=== PATIENT | female | born 1995 | race African-American/Black ===

== ENCOUNTER 2017-05-24 20:17 | Emergency (ER) | payer SELFPAY ==
[2017-05-24 20:24] VITALS: BP 118/68; PULSE 100; TEMP 98.2; BMI 31.6
[2017-05-24] MEDS ORDERED: NAPROXEN 500 MG TABLET (FP) PO ONE (21:11)
--- NOTE | 2017-05-24 21:15 | PDOC ---
History of Present Illness - General Chief Complaint: Ear Problem Stated Complaint: EAR PROBLEM Time Seen by Provider: 05/24/17 20:57 History Source: Patient Exam Limitations: No Limitations - History of Present Illness Initial Comments: 05/24/17 21:11 22 yr female with c/o photophobia and left sided headache today that has improved "slightly" after taking a nap and tylenol. pt called out from work and needs a work note. neg nvd neg fever no dental pain or history of migraines. Severity: mild Past History - Past Medical History Allergies/Adverse Reactions: Allergies Allergy/AdvReac Type Severity Reaction Status Date / Time No Known Allergies Allergy Verified 05/24/17 20:21 Home Medications: Ambulatory Orders Naproxen [Naprosyn -] 500 mg PO BID PRN #14 tablet 05/24/17 Asthma: Yes Cardiac Disorders: Yes (PERICARDITIS.) - Immunization History Immunization Up to Date: No - Suicide/Smoking/Psychosocial Hx Smoking Status: No Smoking History: Never smoked Have you smoked in the past 12 months: Yes Number of Cigarettes Smoked Daily: 0 Hx Alcohol Use: Yes (vodka) Drug/Substance Use Hx: Yes (marijuana) Substance Use Type: Alcohol, Marijuana Review of Systems - Review of Systems Able to Perform ROS?: Yes Is the patient limited Kiswahili proficient: No Constitutional: No: Symptoms Reported HEENTM: Yes: See HPI Respiratory: No: Symptoms reported Cardiac (ROS): No: Symptoms Reported ABD/GI: No: Symptoms Reported *Physical Exam - Vital Signs Last Vital Signs Temp Pulse Resp BP Pulse Ox 98.2 F 100 H 18 118/68 100 05/24/17 20:22 05/24/17 20:22 05/24/17 20:22 05/24/17 20:22 05/24/17 20:22 - Physical Exam General Appearance: Yes: Nourished, Appropriately Dressed HEENT: positive: EOMI, BREN[place], Pharynx Normal Neck: positive: Supple. negative: Tender Respiratory/Chest: positive: Lungs Clear, Normal Breath Sounds Cardiovascular: positive: Regular Rhythm, Regular Rate Gastrointestinal/Abdominal: positive: Normal Bowel Sounds, Soft Extremity: positive: Normal Inspection, Normal Range of Motion Integumentary: positive: Normal Color, Dry, Warm Neurologic: positive: Fully Oriented, Alert, Normal Mood/Affect, Normal Response , Motor Strength 5/5 Medical Decision Making - Medical Decision Making 05/24/17 21:12 cc: left ear ache and headache today improved on arrival now 10/22 no fever no diff eating or drinking no neck pain will give naprosyn *DC/Admit/Observation/Transfer Diagnosis at time of Disposition: Ear pain, left Headache Qualifiers: Headache type: tension-type Headache chronicity pattern: acute headache Intractability: not intractable Qualified Code(s): G44.209 - Tension-type headache, unspecified, not intractable; G44.209 - Tension-type headache, unspecified, not intractable - Discharge Dispostion Disposition: HOME Condition at time of disposition: Good - Prescriptions Prescriptions: Naproxen [Naprosyn -] 500 mg PO BID PRN #14 tablet PRN Reason: Pain - Referrals Referrals: Javad Altman MD [Staff Physician] - [facility] [Outside] - Patient Instructions Additional Instructions: follow with for follow up if ear pain continues follow at the clinic if headaches continue drink pleanty of water avoid bright light, loud noise take naproysn as directed for headache next dose you can take at 9am return to ER if worse
[2017-05-24] MEDS ORDERED: NAPROXEN 500 MG TABLET (FP) ONE (21:16)
== END 2017-05-24 21:20 | disposition home or self-care (01) ==
LOC: JERFT 20:17
DX: G44.209 Tension-type headache, unspecified, not intractable (principal); H92.02 Otalgia, left ear
CPT/HCPCS: 99281-25

== ENCOUNTER 2017-06-01 09:51 | Emergency (ER) | payer SELFPAY ==
[2017-06-01 09:57] VITALS: BMI 31.8
[2017-06-01] MEDS ORDERED: KETOROLAC TROMETHAMINE 30 MG/1 ML VIAL IVPUSH ONE (10:46)
[2017-06-01] MEDS ORDERED: SODIUM CHLORIDE 1,000 ML IV STA (10:46)
[2017-06-01] MEDS ORDERED: KETOROLAC TROMETHAMINE 15 MG/ML VIAL ONE ×2 (11:03→17:39)
--- NOTE | 2017-06-01 11:42 | PDOC ---
History of Present Illness <Enrique Blancas - Last Filed: 06/01/17 17:33> <Poli Munson - Last Filed: 06/03/17 07:07> - General Chief Complaint: Respiratory Stated Complaint: SOB Time Seen by Provider: 06/01/17 10:33 - History of Present Illness Initial Comments: 06/01/17 11:20 "The patient is a 22 year old female, with a significant past medical history of pericarditis(January 2016), who presents to the emergency department complaining of chest pain for approximately 2 days. The patient reports she has had intermittent episodes of chest pain since her diagnosis of pericarditis in January 2016. She describes her chest pain as a tightness. She reports associated shortness of breath and palpitations, but denies any diaphoresis or lower extremity edema. The patient reports her chest pain is worse with movement, especially when bending over. She denies any abdominal pain, nausea, vomiting, diarrhea, or constipation. She denies any fever or chills. She denies any recent travel or sick contacts. Pt states that she has not followed up with a orthopedic assistant yet and typically comes to the ER when she has episodes of chest pain. States that this episode is the same as her previous episodes of chest pain, for which she has had negative work ups at other ERs. Allergies: NKDA Past Surgical History: None reported Social History: ETOH and marijuana use. Non smoker. " (Poli Munson) Past History <Enrique Blancas - Last Filed: 06/01/17 17:33> - Past Medical History Asthma: Yes Cardiac Disorders: Yes (PERICARDITIS.) - Immunization History Immunization Up to Date: No - Suicide/Smoking/Psychosocial Hx Smoking Status: No Smoking History: Never smoked Have you smoked in the past 12 months: Yes Number of Cigarettes Smoked Daily: 0 Hx Alcohol Use: Yes (SOCIAL) Drug/Substance Use Hx: No Substance Use Type: None <Poli Munson - Last Filed: 06/03/17 07:07> - Past Medical History Allergies/Adverse Reactions: Allergies Allergy/AdvReac Type Severity Reaction Status Date / Time No Known Allergies Allergy Verified 06/01/17 09:57 Home Medications: Ambulatory Orders Naproxen [Naprosyn -] 250 mg PO BID PRN #30 tablet 06/01/17 Review of Systems <Enrique Blancas - Last Filed: 06/01/17 17:33> <JeimyPoli - Last Filed: 06/03/17 07:07> - Review of Systems Comments:: 06/01/17 11:22 "GENERAL/CONSTITUTIONAL: No fever or chills. No weakness. HEAD, EYES, EARS, NOSE AND THROAT: No change in vision. No ear pain or discharge. No sore throat. CARDIOVASCULAR: Yes chest pain, shortness of breath, palpitations. No diaphoresis or lower extremity edema. RESPIRATORY: No cough, wheezing, or hemoptysis. GASTROINTESTINAL: No nausea, vomiting, diarrhea or constipation. GENITOURINARY: No dysuria, frequency, or change in urination. MUSCULOSKELETAL: No joint or muscle swelling or pain. No neck or back pain. SKIN: No rash NEUROLOGIC: No headache, vertigo, loss of consciousness, or change in strength/ sensation. ENDOCRINE: No increased thirst. No abnormal weight change. HEMATOLOGIC/LYMPHATIC: No anemia, easy bleeding, or history of blood clots. ALLERGIC/IMMUNOLOGIC: No hives or skin allergy." (Poli Munson) *Physical Exam <Enrique Blancas - Last Filed: 06/01/17 17:33> <JeimyPoli - Last Filed: 06/03/17 07:07> - Vital Signs Last Vital Signs Temp Pulse Resp BP Pulse Ox 97.6 F 80 16 110/70 99 06/01/17 11:45 06/01/17 17:48 06/01/17 17:48 06/01/17 17:48 06/01/17 17:48 - Physical Exam Comments: 06/01/17 11:23 "GENERAL: Awake, alert, and fully oriented, in no acute distress HEAD: No signs of trauma EYES: PERRLA, EOMI, sclera anicteric, conjunctiva clear ENT: Auricles normal inspection, hearing grossly normal, nares patent, oropharynx clear without exudates. Moist mucosa NECK: Nontender, no stepoffs, Normal ROM, supple, no lymphadenopathy, JVD, or masses LUNGS: Breath sounds equal, clear to auscultation bilaterally. No wheezes, and no crackles HEART: No friction rub, Regular rate and rhythm, normal S1 and S2, no murmurs, rubs or gallops ABDOMEN: Soft, nontender, normoactive bowel sounds. No guarding, no rebound. No masses EXTREMITIES: Normal range of motion, no edema. No clubbing or cyanosis. No cords, erythema, or tenderness NEUROLOGICAL: Cranial nerves II through XII intact. 5/5 strength and sensation in all extremities, Normal speech, normal gait SKIN: Warm, Dry, normal turgor, no rashes or lesions noted. " (Poli Munson) ED Treatment Course - LABORATORY CBC & Chemistry Diagram: 06/01/17 11:30 06/01/17 11:54 <Enrique Blancas - Last Filed: 06/01/17 17:33> - LABORATORY CBC & Chemistry Diagram: 06/01/17 11:30 06/01/17 11:54 <Poli Munson - Last Filed: 06/03/17 07:07> - ADDITIONAL ORDERS Additional order review: 06/01/17 11:30 RBC 4.65 MCV 84.1 MCHC 32.0 RDW 14.2 D MPV 8.2 Neutrophils % 67.9 Lymphocytes % 20.3 D Monocytes % 10.0 D Eosinophils % 1.0 D Basophils % 0.8 - RADIOLOGY Radiology Studies Ordered: Category Date Time Status CHEST PA & LAT [RAD] Stat Radiology 06/01/17 10:44 Completed Radiograph Interpretation: 06/01/17 17:33 EXAM: CXR INTERPRETED BY: Dr. Saleh REVIEWED BY: Dr. Munson IMPRESSION: Normal chest. (Enrique Blancas) - Medications Given in the ED: ED Medications Discontinued Medications Generic Name Dose Route Start Last Admin Trade Name Freq PRN Reason Stop Dose Admin Sodium Chloride 1,000 mls @ 1,000 mls/hr 06/01/17 10:46 06/01/17 11:03 Normal Saline - IV 06/01/17 11:45 1,000 mls/hr ASDIR STA Administration Ketorolac Tromethamine 15 mg 06/01/17 10:46 06/01/17 11:03 Toradol Injection - IVPUSH 06/01/17 10:47 15 mg ONCE ONE Administration Ketorolac Tromethamine 15 mg 06/01/17 17:38 06/01/17 17:49 Toradol Injection - IVPUSH 06/01/17 17:39 15 mg ONCE ONE Administration Medical Decision Making <Enrique Blancas - Last Filed: 06/01/17 17:33> <Poli Munson - Last Filed: 06/03/17 07:07> - Medical Decision Making 06/01/17 11:23 22 F with atypical chest pain. Pt with h/o pericarditis but no infectious symptoms currently or prior to presentation. EKG with no ST changes. Pt with stable vitals. Bedside echo with NO significant pericardial effusion. Pt with no PE risk factors, not on AC, no immobilization, no h/o DVT/PE. However, pt cannot be PERC'ed out, as she is currently tachycardic, though this is likely due to pain. - Labs, trop - IVF, toradol - Reassess vitals s/p fluids and pain control - consider CTPE if still tachy. 06/01/17 17:06 labs wnl, EKG and CXR unremarkable. Pt reassessed - reports improvement in pain s/p toradol and fluids. Vitals now wnl, HR 88. PERC score 0. No indication for further PE work up at this time. Clinically well appearing, stable for DC. (Poli Munson) *DC/Admit/Observation/Transfer <Enrique Blancas - Last Filed: 06/01/17 17:33> <Poli Munson - Last Filed: 06/03/17 07:07> Diagnosis at time of Disposition: Chest pain - Discharge Dispostion Disposition: HOME - Prescriptions Prescriptions: Naproxen [Naprosyn -] 250 mg PO BID PRN #30 tablet PRN Reason: Pain - Referrals Referrals: Omid Hernandez MD [Staff Physician] - - Patient Instructions Printed Discharge Instructions: DI for Atypical Chest Pain Additional Instructions: Take naproxen every 12 hours as needed for pain. You must follow up with your primary doctor or orthopedic assistant as soon as possible. Call the number provided to make an appointment. If you experience worsening chest pain, shortness of breath, or any other concerning symptoms, return to the ER immediately. - Attestations Scribe Attestion: 06/01/17 17:34 Documentation prepared by Enrique Blancas, acting as medical administrator for Poli Munson MD. (Enrique Blancas) Physician Attestion: 06/01/17 17:12 IDr. Poli MD, attest that this document has been prepared under my direction and personally reviewed by me in its entirety. I further attest, that it accurately reflects all work, treatment, procedures and medical decision -making performed by me. (Poli Munson)
[2017-06-01 11:46] LABS: BASOPHIL 0.8 % (0-2.0); MCH 26.9 pg (25.7-33.7); MEAN CELL VOLUME 84.1 fl (80-96); MEAN PLT VOLUME 8.2 fl (7.5-11.1); NEUTROPHILS 67.9 % (42.8-82.8); PLATELET COUNT 302 K/MM3 (134-434); RDW 14.2 % (11.6-15.6); WHITE BLOOD COUNT 6.5 K/mm3 (4.0-10.0)
[2017-06-01 12:05] VITALS: TEMP 97.6
[2017-06-01 12:11] LABS: INR 1.19 (0.82-1.09); PROTHROMBIN TIME (PATIENT) 13.5 SEC (9.98-11.88)
[2017-06-01 12:14] LABS: ALBUMIN 3.3 g/dl (3.4-5.0); ANION GAP 10 (8-16); CALCIUM 8.6 mg/dL (8.5-10.1); CO2 24 mmol/L (21-32); CREATININE 0.7 mg/dL (0.55-1.02); GLUCOSE,RANDOM 120 mg/dL (74-106); SGPT/ALT 19 U/L (12-78)
[2017-06-01 12:16] LABS: TROPONIN I < 0.02 ng/ml (0.00-0.05)
[2017-06-01 12:16] LABS: ALK PHOS 79 U/L (45-117); BILIRUBIN,TOTAL 0.7 mg/dL (0.2-1.0); TOT PROT 7.1 g/dl (6.4-8.2)
[2017-06-01 12:28] LABS: SGOT/AST 32 U/L (15-37)
[2017-06-01 12:28] LABS: CPK 195 IU/L (26-192)
[2017-06-01] MEDS ORDERED: KETOROLAC TROMETHAMINE 15 MG/ML VIAL IVPUSH ONE (17:38)
[2017-06-01 17:49] VITALS: BP 110/70; PULSE 80
== END 2017-06-01 17:49 | disposition home or self-care (01) ==
LOC: JER 09:51
PROC: 3E0233Z Introduction of Anti-inflammatory into Muscle, Percutaneous Approach (ICD-10-PCS; principal; 2017-06-01)
DX: R07.89 Other chest pain (principal)
CPT/HCPCS: 36415; 71020-TC; 80053; 82550; 82553; 83880; 84484; 84703; 85025; 85610; 85730; 99284-25

== ENCOUNTER 2017-10-20 11:27 | Emergency (ER) | payer SELFPAY ==
[2017-10-20 11:34] VITALS: BMI 32.8
[2017-10-20] MEDS ORDERED: PANTOPRAZOLE SODIUM 40 MG in SODIUM CHLORIDE 100 ML IVPB ONE (12:17)
[2017-10-20] MEDS ORDERED: ONDANSETRON 4 MG/2 ML VIAL IVPUSH ONE ×2 (12:17→13:16)
[2017-10-20] MEDS ORDERED: PANTOPRAZOLE SODIUM 40 MG VIAL ONE (12:42)
[2017-10-20] MEDS ORDERED: ONDANSETRON 4 MG/2 ML VIAL ONE ×2 (12:42→13:24)
[2017-10-20 12:57] LABS: URINE APPEARANCE CLEAR; URINE BILIRUBIN NEGATIVE (NEGATIVE); URINE BLOOD 1+ (NEGATIVE); URINE COLOR YELLOW; URINE GLUCOSE (UA) NEGATIVE (NEGATIVE); URINE KETONE TRACE (NEGATIVE); URINE LEUK ESTERASE TRACE (NEGATIVE); URINE NITRITE NEGATIVE (NEGATIVE); URINE UROBILINOGEN NEGATIVE mg/dL (0.2-1.0)
[2017-10-20 12:58] LABS: HCG,QUALITATIVE URINE NEGATIVE; URINE PROTEIN 1+ (NEGATIVE)
[2017-10-20 12:59] LABS: EPI CELLS FEW /HPF (FEW); URINE MUCUS MANY
--- NOTE | 2017-10-20 13:06 | PDOC ---
History of Present Illness - General Chief Complaint: Nausea/Vomiting Stated Complaint: NAUSEA,VOMITING Time Seen by Provider: 10/20/17 11:36 History Source: Patient Exam Limitations: No Limitations - History of Present Illness Initial Comments: 10/20/17 12:58 22-year-old female presents to the ED with complaints of sudden onset of epigastric burning and gnawing sensation associated nausea without vomiting at 4 AM. Patient states had similar symptoms like this in the past and normally responds well with IV fluids medication for nausea and pain control. Patient denies medical history but does smoke marijuana a few times a week. Patient denies smoking history and states drinks occasionally patient states has not seen a candle wrapper since onset a few years ago despite recommendations from emergency providers.Patient denies fever, urinary complaints, or bowel complaints. denies recent travel or change in diet. Timing/Duration: reports: constant Quality: reports: moderate, burning, cramping, sharpness Abdominal Pain Onset Location: reports: epigastric Pain Radiation: reports: no radiation Activities at Onset: reports: none Aggravating Factors: improves with: None Alleviating Factors: improves with: None Past History - Travel Traveled outside of the country in the last 30 days: No - Past Medical History Allergies/Adverse Reactions: Allergies Allergy/AdvReac Type Severity Reaction Status Date / Time No Known Allergies Allergy Verified 10/20/17 11:30 Home Medications: Ambulatory Orders Naproxen [Naprosyn -] 250 mg PO BID PRN #30 tablet 06/01/17 Metoclopramide HCl [Reglan] 10 mg PO BID PRN #10 tablet 10/20/17 Asthma: Yes Cardiac Disorders: Yes (PERICARDITIS.) COPD: No - Immunization History Immunization Up to Date: No - Suicide/Smoking/Psychosocial Hx Smoking Status: No Smoking History: Never smoked Have you smoked in the past 12 months: Yes Number of Cigarettes Smoked Daily: 0 Hx Alcohol Use: Yes (SOCIAL) Drug/Substance Use Hx: Yes Substance Use Type: Marijuana Patient Lives Alone: No Lives with/in: parents Review of Systems - Review of Systems Able to Perform ROS?: No Constitutional: No: Symptoms Reported HEENTM: No: Symptoms Reported Respiratory: No: Symptoms reported ABD/GI: Yes: Nausea, Vomiting, Indigestion, Abdominal cramping : No: Symptoms Reported Musculoskeletal: No: Symptoms Reported Integumentary: No: Symptoms Reported Neurological: No: Symptoms reported *Physical Exam - Vital Signs Last Vital Signs Temp Pulse Resp BP Pulse Ox 97.5 F L 84 18 121/86 100 10/20/17 11:30 10/20/17 11:30 10/20/17 11:30 10/20/17 11:30 10/20/17 11:30 - Physical Exam General Appearance: Yes: Nourished, Appropriately Dressed. No: Apparent Distress Respiratory/Chest: positive: Lungs Clear, Normal Breath Sounds. negative: Respiratory Distress, Accessory Muscle Use Cardiovascular: positive: Regular Rhythm, Regular Rate. negative: Murmur Gastrointestinal/Abdominal: positive: Normal Bowel Sounds, Soft, Tenderness ( epigastric). negative: Distended Integumentary: positive: Normal Color, Warm, Moist ED Treatment Course - LABORATORY CBC & Chemistry Diagram: 10/20/17 12:30 10/20/17 12:30 - Medications Given in the ED: ED Medications Discontinued Medications Generic Name Dose Route Start Last Admin Trade Name Freq PRN Reason Stop Dose Admin Pantoprazole Sodium 40 mg/ 100 mls @ 200 mls/hr 10/20/17 12:17 10/20/17 12:49 Sodium Chloride IVPB 10/20/17 12:46 200 mls/hr ONCE ONE Administration Ondansetron HCl 4 mg 10/20/17 12:17 10/20/17 12:49 Zofran Injection IVPUSH 10/20/17 12:18 4 mg ONCE ONE Administration Medical Decision Making - Medical Decision Making 10/20/17 12:06 Patient was sent onset of epigastric pain associated nausea and vomiting. Patient does have history of similar presentation the past and was recommended to follow-up with candle wrapper but states fails to secondary to no insurance. Patient examined at epigastric tenderness and was dry heaving upon my arrival. Patient ordered for labs including lipase, magnesium, urinalysis urine , IV Protonix, Zofran and fluids. 10/20/17 16:50 Patient states feeling better after receiving the Reglan. second bag of IV fluid completed. Patient be discharged home with GI referral along with Reglan. Patient tolerating water in the ER. Laboratory Tests 10/20/17 10/20/17 10/20/17 12:30 12:30 12:30 RBC 4.72 Hgb 12.8 Hct 38.8 Neutrophils % 88.2 H D Monocytes % 2.3 L Sodium 143 Potassium 4.8 Chloride 108 H Carbon Dioxide 23 Anion Gap 12 BUN 16 Creatinine 0.8 Random Glucose 90 Total Bilirubin 0.7 AST 30 ALT 27 Total Protein 8.3 H Lipase 42 L Urine Protein 1+ H Urine Ketones Trace H Urine Blood 1+ H Urine Urobilinogen Negative Ur Leukocyte Esterase Trace Urine WBC (Auto) 3 Urine RBC (Auto) 1 Urine HCG, Qual Negative 10/20/17 17:17 Patient upon discharge complaining of epigastric pain which she describes a burning sensation. Patient ordered for Toradol and a GI cocktail *DC/Admit/Observation/Transfer Diagnosis at time of Disposition: Gastritis, Vomiting - Discharge Dispostion Disposition: HOME Condition at time of disposition: Improved - Prescriptions Prescriptions: Metoclopramide HCl [Reglan] 10 mg PO BID PRN #10 tablet PRN Reason: Nausea And/Or Vomiting - Referrals Referrals: Matty Morrison MD [Staff Physician] - - Patient Instructions Printed Discharge Instructions: DI for Gastritis, DI for Vomiting -- Adult Additional Instructions: Please eat bland food for the next 72 hours and advance as tolerated. Please take Reglan as needed for nausea. Please avoid smoking marijuana and alcohol intake. If symptoms return or worsen please go to the nearest ER. Otherwise follow up with referred candle wrapper. - Post Discharge Activity
[2017-10-20] MEDS ORDERED: morphine CARPU-JECT 2 MG/1 ML DISP.SYRIN IVPUSH ONE (13:08)
[2017-10-20 13:16] LABS: BASO % 0.5 % (0-2.0); EOS % 0.1 % (0-4.5); HEMATOCRIT 38.8 % (32.4-45.2); HEMOGLOBIN 12.8 GM/dL (10.7-15.3); LYMPH % 8.9 % (8-40); MCHC 32.9 g/dl (32.0-36.0); MEAN CELL VOLUME 82.3 fl (80-96); MEAN PLT VOLUME 8.3 fl (7.5-11.1); MONO % 2.3 % (3.8-10.2); NEUT % 88.2 % (42.8-82.8); PLATELET COUNT 314 K/MM3 (134-434); RBC 4.72 M/mm3 (3.60-5.2); RDW 14.8 % (11.6-15.6); WHITE BLOOD COUNT 7.2 K/mm3 (4.0-10.0)
[2017-10-20] MEDS ORDERED: MORPHINE SULFATE 10 MG/1 ML *VIAL ONE (13:24)
[2017-10-20 13:26] LABS: ALBUMIN 4.1 g/dl (3.4-5.0); ANION GAP 12 (8-16); BILIRUBIN,TOTAL 0.7 mg/dL (0.2-1.0); BLOOD UREA NITROGEN 16 mg/dL (7-18); CALCIUM 9.3 mg/dL (8.5-10.1); CHLORIDE 108 mmol/L (98-107); CO2 23 mmol/L (21-32); CREATININE 0.8 mg/dL (0.55-1.02); GLUCOSE,RANDOM 90 mg/dL (74-106); LIPASE 42 U/L (73-393); SGPT/ALT 27 U/L (12-78); SODIUM 143 mmol/L (136-145); TOT PROT 8.3 g/dl (6.4-8.2)
[2017-10-20 13:27] LABS: ALK PHOS 84 U/L (45-117)
[2017-10-20 13:34] LABS: POTASSIUM 4.8 mmol/L (3.5-5.1); SGOT/AST 30 U/L (15-37)
[2017-10-20] MEDS ORDERED: METOCLOPRAMIDE HCL INJECTION 10 MG/2 ML VIAL IVPB ONE (15:10)
[2017-10-20] MEDS ORDERED: SODIUM CHLORIDE 1,000 ML IV STA (15:10)
[2017-10-20] MEDS ORDERED: METOCLOPRAMIDE HCL INJECTION 10 MG/2 ML VIAL ONE (15:21)
[2017-10-20 17:07] VITALS: BP 128/78; PULSE 72; TEMP 98.6
[2017-10-20] MEDS ORDERED: KETOROLAC TROMETHAMINE 30 MG/1 ML VIAL IVPUSH ONE (17:16)
[2017-10-20] MEDS ORDERED: MAG HYDROX/AL HYDROX/SIMETH 30 ML UNIT-DOSE CUP PO ONE (17:17)
[2017-10-20] MEDS ORDERED: LIDOCAINE VISCOUS 2% ORAL/TOP 20 ML UNIT-DOSE CUP MM ONE (17:17)
[2017-10-20] MEDS ORDERED: HYOSCYAMINE SULFATE 0.125 MG *ODT PO ONE (17:17)
[2017-10-20] MEDS ORDERED: LIDOCAINE VISCOUS 2% ORAL/TOP 20 ML UNIT-DOSE CUP ONE (17:53)
[2017-10-20] MEDS ORDERED: MAG HYDROX/AL HYDROX/SIMETH 30 ML UNIT-DOSE CUP ONE (17:53)
[2017-10-20] MEDS ORDERED: KETOROLAC TROMETHAMINE 30 MG/1 ML VIAL ONE (17:53)
== END 2017-10-20 18:17 | disposition home or self-care (01) ==
LOC: JER 11:27
PROC: 3E0337Z Introduction of Electrolytic and Water Balance Substance into Peripheral Vein, Percutaneous Approach (ICD-10-PCS; principal; 2017-10-20)
PROC: 3E033GC Introduction of Other Therapeutic Substance into Peripheral Vein, Percutaneous Approach (ICD-10-PCS; 2017-10-20)
PROC: 3E0333Z Introduction of Anti-inflammatory into Peripheral Vein, Percutaneous Approach (ICD-10-PCS; 2017-10-20)
DX: K29.70 Gastritis, unspecified, without bleeding (principal); R11.10 Vomiting, unspecified
CPT/HCPCS: 36415; 80053; 81003; 81015; 83690; 84703; 85025; 99281-25

== ENCOUNTER 2019-07-14 21:35 | Emergency (ER) | payer OTHER ==
[2019-07-14 21:39] VITALS: TEMP 98.1; BMI 34.4
--- NOTE | 2019-07-14 22:00 | PDOC ---
History of Present Illness - General Chief Complaint: Nausea/Vomiting Stated Complaint: VOMITING Time Seen by Provider: 07/14/19 22:00 - History of Present Illness Initial Comments: HPI: 24yo F with PMH of pericarditis presenting with nausea, vomiting, and abdominal pain x 1 day. Patient states she has 9/10 epigastric pain described as "burning. " Reports nausea and about 12 episodes of nonbloody bilious vomiting. Has not been able to tolerate po intake. She has had these episodes before, about four times previously; per chart review, was here on 10/20/17 with similar presentation. Last bowel movement was this morning and was a semi-loose stool of unknown color. Never followed up with a GI doctor. Denies history of H. pylori, ulcers, or endoscopy/colonoscopy. Does not think she ate anything unusual. Denies surgical history. No sick contacts or recent travel. Denies recent alcohol use, but is a frequent marijuana user. Currently menstruating. Denies fever, but endorses chills. PCP: Dr. Ozzy Alejandre ROS: Constitutional: no fever, +chills HEENT: no throat pain, no dysphagia Cardiovascular: no chest pain, no palpitations Respiratory: no cough, no shortness of breath Gastrointestinal: +abdominal pain, +vomiting Genitourinary: no dysuria, no hematuria Musculoskeletal: no myalgia, no arthralgia Skin: no rash, no itching Neurologic: no headache, no weakness PE: General: Awake, alert, and fully oriented, writhing in stretcher Head: No signs of trauma Eyes: EOMI, sclera anicteric ENT: Dry mucus membranes Neck: Normal ROM, supple Lungs: Lungs clear, Normal breath sounds Cardio: Regular rhythm, S1 and S2 present Abdomen: Soft, nondistended. +guarding; Patient refused palpation of epigastrium due to pain Extremities: Normal range of motion, Distal pulses present SKIN: Warm, Dry, normal turgor Neurologic: Cranial nerves II through XII grossly intact. Normal speech ED Course/MDM: DDX including but not limited to gastritis, pancreatitis, ulcer, H. pylori, , intoxication Labs Fluids Aziza Rowley [facility] Will reassess Patient refused palpation of epigastrium due to pain; I explained that I need to perform a thorough exam and she voiced understanding but declined. Patient states "I've had this before. I just want to save you time. I'm not telling you how to do your job. I'm just letting you know they always end up giving me morphine for this." I explained that opioid medications have risks and we will try other medications before escalating to morphine 07/14/19 22:00 Patient still with 9/10 abdominal pain Reports nausea Decision made to obtain CT 07/14/19 23:53 CBC WBC 5.7 K/mm3 (4.0-10.0) 07/14/19 22:50 RBC 4.25 M/mm3 (3.60-5.2) 07/14/19 22:50 Hgb 10.8 GM/dL (10.7-15.3) 07/14/19 22:50 Hct 34.2 % (32.4-45.2) 07/14/19 22:50 MCV 80.4 fl (80-96) 07/14/19 22:50 MCH 25.4 pg (25.7-33.7) L 07/14/19 22:50 MCHC 31.5 g/dl (32.0-36.0) L 07/14/19 22:50 RDW 15.1 % (11.6-15.6) 07/14/19 22:50 Plt Count 323 K/MM3 (134-434) 07/14/19 22:50 MPV 8.1 fl (7.5-11.1) 07/14/19 22:50 Absolute Neuts (auto) 5.0 K/mm3 (1.5-8.0) 07/14/19 22:50 Neutrophils % 87.5 % (42.8-82.8) H 07/14/19 22:50 Lymphocytes % 9.5 % (8-40) 07/14/19 22:50 Monocytes % 2.5 % (3.8-10.2) L 07/14/19 22:50 Eosinophils % 0.0 % (0-4.5) D 07/14/19 22:50 Basophils % 0.5 % (0-2.0) 07/14/19 22:50 Nucleated RBC % 0 % (0-0) 07/14/19 22:50 No leukocytosis or anemia CMP Sodium 142 mmol/L (136-145) 07/14/19 22:50 Potassium 4.0 mmol/L (3.5-5.1) 07/14/19 22:50 Chloride 109 mmol/L (98-107) H 07/14/19 22:50 Carbon Dioxide 23 mmol/L (21-32) 07/14/19 22:50 Anion Gap 10 MMOL/L (8-16) 07/14/19 22:50 BUN 11.4 mg/dL (7-18) 07/14/19 22:50 Creatinine 0.8 mg/dL (0.55-1.3) 07/14/19 22:50 Est GFR (CKD-EPI)AfAm 121.29 07/14/19 22:50 Est GFR (CKD-EPI)NonAf 104.65 07/14/19 22:50 Random Glucose 101 mg/dL (74-106) 07/14/19 22:50 Calcium 9.0 mg/dL (8.5-10.1) 07/14/19 22:50 Total Bilirubin 0.4 mg/dL (0.2-1) 07/14/19 22:50 AST 21 U/L (15-37) 07/14/19 22:50 ALT 22 U/L (13-61) 07/14/19 22:50 Alkaline Phosphatase 76 U/L (45-117) 07/14/19 22:50 Total Protein 7.5 g/dl (6.4-8.2) 07/14/19 22:50 Albumin 3.9 g/dl (3.4-5.0) 07/14/19 22:50 Lipase 37 U/L (73-393) L 07/14/19 22:50 Serum , Qual Negative 07/14/19 23:00 Electrolytes unremarkable Normal Cr No transaminitis Lipase low negative EKG: rate 72, QTc 483, NSR, twi in V3 also seen in previous EKG 04/02/16 Zofran and protonix ordered 07/15/19 00:31 Patient still complaining of 9/10 pain, still nauseous 4mg morphine ordered Pending CT scan report 07/15/19 01:45 CTAP as read by imaging director of application development: "FINDINGS: Clear imaged lung bases. Normal-sized heart without pericardial effusion. Liver measuring 20 cm in length with focally prominent fat noted in the left lobe liver adjacent to the falciform ligament. Unremarkable spleen, pancreas, and adrenals. Faint layering calculi seen in the gallbladder on series 5 images 49-55 and sagittal image 31. Splenule anteromedial to spleen. Normal enhancement in both kidneys without renal or ureteral calculi or hydronephrosis. Peripelvic cyst suggested in the upper pole of the right kidney. Partially distended urinary bladder with bladder wall thickening. No bowel obstruction. Normal caliber partially air-filled appendix without evidence of appendicitis. No diverticulitis. Mild colonic wall thickening. Normal caliber abdominal aorta. No lymphadenopathy. Anteverted uterus. Small amount of free fluid in the cul-de-sac, more than expected for physiologic range. No acute osseous changes. IMPRESSION: 1. Mild hepatomegaly. 2. Gallstones. 3. Colitis versus underdistention resulting colonic wall thickening. 4. Small amount of free fluid in the cul-de-sac which could be sequela of partially ruptured cyst. Other findings as above. One or more of the following dose reduction techniques were used: automated exposure control," Decision made to administer haldol 2.5 IV Pending reassessment Patient signed out to Dr. Abbasi and night team 07/15/19 02:12 Past History - Past Medical History Allergies/Adverse Reactions: Allergies Allergy/AdvReac Type Severity Reaction Status Date / Time No Known Allergies Allergy Verified 07/14/19 21:39 Home Medications: Ambulatory Orders Naproxen [Naprosyn -] 250 mg PO BID PRN #30 tablet 06/01/17 Metoclopramide HCl [Reglan] 10 mg PO BID PRN #10 tablet 10/20/17 Asthma: Yes Cardiac Disorders: Yes (PERICARDITIS.) COPD: No - Immunization History Immunization Up to Date: No - Psycho Social/Smoking Cessation Hx Smoking Status: No Smoking History: Current every day smoker Have you smoked in the past 12 months: Yes Number of Cigarettes Smoked Daily: 0 Information on smoking cessation initiated: No Hx Alcohol Use: Yes (SOCIAL) Drug/Substance Use Hx: Yes Substance Use Type: Marijuana *Physical Exam - Vital Signs Last Vital Signs Temp Pulse Resp BP Pulse Ox 98.1 F 94 H 18 127/73 99 07/14/19 21:37 07/14/19 21:37 07/14/19 21:37 07/14/19 21:37 07/14/19 21:37 ED Treatment Course - LABORATORY CBC & Chemistry Diagram: 07/14/19 22:50 07/14/19 22:50 Discharge - Discharge Information Problems reviewed: Yes Clinical Impression/Diagnosis: Epigastric abdominal pain - Follow up/Referral - Patient Discharge Instructions Additional Instructions: You came into the emergency department with abdominal pain. Your blood work and CT scan did not show acute pathology. You can take tylenol as needed for pain. Follow the instructions on the medication bottle. As it is likely contributing to your symptoms, avoid using marijuana. We have referred you to a GI specialist. Follow-up within 72 hours to discuss this ED visit and to further evaluate your symptoms. Call and make an appointment in the morning. Your workup is not complete until you do so. Immediate medical attention is required if you have: chest pain, palpitations, shortness of breath, severe headaches, changes in vision, focal numbness or weakness, severe abdominal pain, black tarry stool, or any new or concerning symptoms. If you think you are having an emergency, call for emergency medical services or present to the emergency department right away. - Post Discharge Activity
[2019-07-14] MEDS ORDERED: SODIUM CHLORIDE 1,000 ML IV STA (22:24)
[2019-07-14] MEDS ORDERED: METOCLOPRAMIDE HCL INJECTION 10 MG/2 ML VIAL IVPUSH ONE (22:24)
[2019-07-14] MEDS ORDERED: ACETAMINOPHEN 1000 MG/100 ML VIAL (NON FORMULARY) IVPB ONE (22:24)
[2019-07-14] MEDS ORDERED: FAMOTIDINE 20 MG/50 ML IVPB 20 MG/50 ML MG IVPB ONE ×2 (22:24→22:42)
[2019-07-14] MEDS ORDERED: ACETAMINOPHEN INJECTION 100 ML IVPB ONE (22:41)
[2019-07-14] MEDS ORDERED: METOCLOPRAMIDE HCL INJECTION 10 MG/2 ML VIAL ONE (22:41)
--- NOTE | 2019-07-14 23:04 | PDOC ---
Documentation entered by Maryuri Hall SCRIBE, acting as scribe for Natali Pak MD. Natali Pak MD: This documentation has been prepared by the Isabel holt Xhesika, SCRIBE, under my direction and personally reviewed by me in its entirety. I confirm that the documentation accurately reflects all work, treatment, procedures, and medical decision making performed by me. Attending Attestation - Resident Resident Name: EdwardJuan ManuelYoko - ED Attending Attestation I have performed the following: I have examined & evaluated the patient, The case was reviewed & discussed with the resident, I agree w/resident's findings & plan, Exceptions are as noted - HPI HPI: 07/14/19 22:42 The patient is a 22 year old female, with a significant past medical history of asthma and pericarditis (January 2016), who presents to the emergency department for nausea, 12 episodes of nbnb emesis, and abdominal pain. Pain began Pain is described as burning sensation, 9/10 in severity, localized at her epigastric region. Unable to tolerate po She has had these symptoms in the past The patient denies chest pain, shortness of breath, headache and dizziness. Denies fever, chills, cough, diarrhea and constipation. Denies dysuria, frequency, urgency and hematuria. Allergies: NKDA Social History: frequent marijuana use. PCP: Dr. Ozzy Alejandre 07/14/19 23:00 - Physicial Exam PE: 07/14/19 22:42 GENERAL: The patient is in no acute distress. HEAD: Normal EYES: PERRLA, EOMI, sclera anicteric, conjunctiva clear. ENT: Ears normal, nares patent, oropharynx clear without exudates. Moist mucous membranes. LUNGS: Breath sounds equal, clear to auscultation bilaterally. No wheezes, and no crackles. HEART:Regular rate and rhythm, normal S1 and S2 without murmur, rub or gallop. ABDOMEN: Soft, nontender, normoactive bowel sounds. No guarding, no rebound. EXTREMITIES: Normal range of motion, no edema. NEUROLOGICAL: Cranial nerves II through XII grossly intact. Normal speech. No focal neurological deficits. SKIN: Warm, Dry, normal turgor, no rashes or lesions noted. 07/14/19 23:01 - Medical Decision Making 07/14/19 23:02 24-year-old female presenting to the emergency department with a complaint of abdominal pain, nausea, vomiting Patient has had the symptoms in the past No associated systemic signs of illness Differential diagnosis includes but is not limited to: Gastritis, GERD, small bowel obstruction, pancreatitis, biliary colic We will do: Lab IV fluid Anti Emetics Possible need for imaging We will reassess 07/14/19 23:32 Laboratory Tests 07/14/19 07/14/19 22:50 23:00 WBC 5.7 Hgb 10.8 Hct 34.2 Plt Count 323 Serum , Qual Negative 07/14/19 23:54 Laboratory Tests 07/14/19 07/14/19 22:50 22:50 BUN 11.4 Creatinine 0.8 Total Bilirubin 0.4 AST 21 ALT 22 Lipase 37 L Continues to complain about pain Will do CT Will give Protonix 07/15/19 01:52 CT: Referring Physician: EDWARD HOLGUIN Patient Name: DILEEP CORONEL THIS IS A PRELIMINARY REPORT FROM [facility] CLOSER DATE OF SERVICE: 2019-07-15 00:36:18 IMAGES: [id number] EXAM: ABDOMEN \T\ PELVIS CT WITH CONTR HISTORY: Epigastric pain. COMPARISON: None. FINDINGS: Clear imaged lung bases. Normal-sized heart without pericardial effusion. Liver measuring 20 cm in length with focally prominent fat noted in the left lobe liver adjacent to the falciform ligament. Unremarkable spleen, pancreas, and adrenals. Faint layering calculi seen in the gallbladder on series 5 images 49-55 and sagittal image 31. Splenule anteromedial to spleen. Normal enhancement in both kidneys without renal or ureteral calculi or hydronephrosis. Peripelvic cyst suggested in the upper pole of the right kidney. Partially distended urinary bladder with bladder wall thickening. No bowel obstruction. Normal caliber partially air-filled appendix without evidence of appendicitis. No diverticulitis. Mild colonic wall thickening. Normal caliber abdominal aorta. No lymphadenopathy. Anteverted uterus. Small amount of free fluid in the cul-de-sac, more than expected for physiologic range. No acute osseous changes. IMPRESSION: 1. Mild hepatomegaly. 2. Gallstones. 3. Colitis versus underdistention resulting colonic wall thickening. 4. Small amount of free fluid in the cul-de-sac which could be sequela of partially ruptured cyst. Other findings as above No acute findings I do not believe this patient has colitis Pt given pain medications Signed out to Dr Munson Anticipate discharge
[2019-07-14 23:17] LABS: BASO % 0.5 % (0-2.0); HEMATOCRIT 34.2 % (32.4-45.2); HEMOGLOBIN 10.8 GM/dL (10.7-15.3); LYMPH % 9.5 % (8-40); MCH 25.4 pg (25.7-33.7); MCHC 31.5 g/dl (32.0-36.0); MEAN CELL VOLUME 80.4 fl (80-96); MEAN PLT VOLUME 8.1 fl (7.5-11.1); MONO % 2.5 % (3.8-10.2); NEUT % 87.5 % (42.8-82.8); PLATELET COUNT 323 K/MM3 (134-434); RBC 4.25 M/mm3 (3.60-5.2); RDW 15.1 % (11.6-15.6); WHITE BLOOD COUNT 5.7 K/mm3 (4.0-10.0)
[2019-07-14 23:40] LABS: ALBUMIN 3.9 g/dl (3.4-5.0); BILIRUBIN,TOTAL 0.4 mg/dL (0.2-1); BLOOD UREA NITROGEN 11.4 mg/dL (7-18); CREATININE 0.8 mg/dL (0.55-1.3); TOT PROT 7.5 g/dl (6.4-8.2)
[2019-07-14] MEDS ORDERED: PANTOPRAZOLE SODIUM 40 MG VIAL IVPUSH ONE (23:53)
[2019-07-14] MEDS ORDERED: PANTOPRAZOLE SODIUM 40 MG/100 ML BAG IVPB ONE (23:58)
[2019-07-15] MEDS ORDERED: ONDANSETRON 4 MG/2 ML VIAL IVPUSH ONE (00:28)
[2019-07-15] MEDS ORDERED: ONDANSETRON 4 MG/2 ML VIAL ONE (00:50)
[2019-07-15] MEDS ORDERED: morphine CARPU-JECT 4 MG/1 ML DISP.SYRIN IVPUSH ONE (01:39)
[2019-07-15] MEDS ORDERED: morphine SULFATE 4 MG/ML VIAL ONE (01:46)
[2019-07-15] MEDS ORDERED: HALOPERIDOL LACTATE 5 MG/ML IV ONE ×2 (02:11→02:12)
--- NOTE | 2019-07-15 02:12 | PDOC ---
ED Treatment Course - LABORATORY CBC & Chemistry Diagram: 07/14/19 22:50 07/14/19 22:50 Medical Decision Making - Medical Decision Making Pt signed out to me by Dr. Lazcano, see prior note. 24 year old female with PMH pericarditis (2015) presented to ED for nausea/ vomiting/epigastric pain since 0700 yesterday. Pt uses marijuana. Pt was noncompliant with prior providers examination, would not allow her to palpate her abdomen. Initial Vital Signs Temp Pulse Resp BP Pulse Ox 98.1 F 94 H 18 127/73 99 07/14/19 21:37 07/14/19 21:37 07/14/19 21:37 07/14/19 21:37 07/14/19 21:37 Afebrile. No tachycardia. No tachypnea. No hypotension. No hypoxia on room air. ED Medications Discontinued Medications Generic Name Dose Route Start Last Admin Trade Name Freq PRN Reason Stop Dose Admin Acetaminophen 1,000 mg 07/14/19 22:24 07/14/19 23:08 Ofirmev Injection - IVPB 07/14/19 22:25 1,000 mg ONCE ONE Administration Famotidine/Sodium Chloride 20 mg in 50 mls @ 100 mls/hr 07/14/19 22:24 23:08 Pepcid 20 Mg Premixed Ivpb - IVPB 07/14/19 22:53 100 mls/hr ONCE ONE Administration Sodium Chloride 1,000 mls @ 1,000 mls/hr 07/14/19 22:24 07/14/19 23:08 Normal Saline - IV 07/14/19 23:23 1,000 mls/hr ASDIR STA Administration Metoclopramide HCl 10 mg 07/14/19 22:24 07/14/19 23:08 Reglan Injection - IVPUSH 07/14/19 22:25 10 mg ONCE ONE Administration Morphine Sulfate 4 mg 07/15/19 01:39 07/15/19 01:49 Morphine Injection - IVPUSH 07/15/19 01:40 4 mg ONCE ONE Administration Ondansetron HCl 4 mg 07/15/19 00:28 07/15/19 01:49 Zofran Injection IVPUSH 07/15/19 00:29 4 mg ONCE ONE Administration Pantoprazole Sodium 40 mg 07/14/19 23:53 07/15/19 00:05 Protonix Iv IVPUSH 07/14/19 23:54 40 mg ONCE ONE Administration Laboratory Last Values WBC 5.7 K/mm3 (4.0-10.0) 07/14/19 22:50 RBC 4.25 M/mm3 (3.60-5.2) 07/14/19 22:50 Hgb 10.8 GM/dL (10.7-15.3) 07/14/19 22:50 Hct 34.2 % (32.4-45.2) 07/14/19 22:50 MCV 80.4 fl (80-96) 07/14/19 22:50 MCH 25.4 pg (25.7-33.7) L 07/14/19 22:50 MCHC 31.5 g/dl (32.0-36.0) L 07/14/19 22:50 RDW 15.1 % (11.6-15.6) 07/14/19 22:50 Plt Count 323 K/MM3 (134-434) 07/14/19 22:50 MPV 8.1 fl (7.5-11.1) 07/14/19 22:50 Absolute Neuts (auto) 5.0 K/mm3 (1.5-8.0) 07/14/19 22:50 Neutrophils % 87.5 % (42.8-82.8) H 07/14/19 22:50 Lymphocytes % 9.5 % (8-40) 07/14/19 22:50 Monocytes % 2.5 % (3.8-10.2) L 07/14/19 22:50 Eosinophils % 0.0 % (0-4.5) D 07/14/19 22:50 Basophils % 0.5 % (0-2.0) 07/14/19 22:50 Nucleated RBC % 0 % (0-0) 07/14/19 22:50 Sodium 142 mmol/L (136-145) 07/14/19 22:50 Potassium 4.0 mmol/L (3.5-5.1) 07/14/19 22:50 Chloride 109 mmol/L (98-107) H 07/14/19 22:50 Carbon Dioxide 23 mmol/L (21-32) 07/14/19 22:50 Anion Gap 10 MMOL/L (8-16) 07/14/19 22:50 BUN 11.4 mg/dL (7-18) 07/14/19 22:50 Creatinine 0.8 mg/dL (0.55-1.3) 07/14/19 22:50 Est GFR (CKD-EPI)AfAm 121.29 07/14/19 22:50 Est GFR (CKD-EPI)NonAf 104.65 07/14/19 22:50 Random Glucose 101 mg/dL (74-106) 07/14/19 22:50 Calcium 9.0 mg/dL (8.5-10.1) 07/14/19 22:50 Total Bilirubin 0.4 mg/dL (0.2-1) 07/14/19 22:50 AST 21 U/L (15-37) 07/14/19 22:50 ALT 22 U/L (13-61) 07/14/19 22:50 Alkaline Phosphatase 76 U/L (45-117) 07/14/19 22:50 Total Protein 7.5 g/dl (6.4-8.2) 07/14/19 22:50 Albumin 3.9 g/dl (3.4-5.0) 07/14/19 22:50 Lipase 37 U/L (73-393) L 07/14/19 22:50 Serum , Qual Negative 07/14/19 23:00 CT abdomen/pelvis report: Referring Physician: EDWARD HOLGUIN Comments: Sanaz Bell MD wrote on Jul 15, 2019 at 01:49 AM: Referring Physician: EDWARD HOLGUIN Patient Name: DILEEP CORONEL THIS IS A PRELIMINARY REPORT FROM [facility] DATE OF SERVICE: 2019-07-15 00:36:18 IMAGES: 466 EXAM: ABDOMEN \T\ PELVIS CT WITH CONTR HISTORY: Epigastric pain. COMPARISON: None. FINDINGS: Clear imaged lung bases. Normal-sized heart without pericardial effusion. Liver measuring 20 cm in length with focally prominent fat noted in the left lobe liver adjacent to the falciform ligament. Unremarkable spleen, pancreas, and adrenals. Faint layering calculi seen in the gallbladder on series 5 images 49-55 and sagittal image 31. Splenule anteromedial to spleen. Normal enhancement in both kidneys without renal or ureteral calculi or hydronephrosis. Peripelvic cyst suggested in the upper pole of the right kidney. Partially distended urinary bladder with bladder wall thickening. No bowel obstruction. Normal caliber partially air-filled appendix without evidence of appendicitis. No diverticulitis. Mild colonic wall thickening. Normal caliber abdominal aorta. No lymphadenopathy. Anteverted uterus. Small amount of free fluid in the cul-de-sac, more than expected for physiologic range. No acute osseous changes. IMPRESSION: 1. Mild hepatomegaly. 2. Gallstones. 3. Colitis versus underdistention resulting colonic wall thickening. 4. Small amount of free fluid in the cul-de-sac which could be sequela of partially ruptured cyst. Other findings as above. One or more of the following dose reduction techniques were used: automated exposure control, Referring Physician: EDWARD HOLGUIN adjustment of the mA and/or kV according to patient size, use of iterative reconstructive technique. THIS DOCUMENT HAS BEEN ELECTRONICALLY SIGNED Sanaz Bell MD 07/15/2019 01:48 SNUNY M.D. Please call [facility] [phone] ([phone]) with questions. Sanaz Bell MD Clinicians - Please contact [facility] with further questions at [phone]) Patients - Please contact your Ordering Provider with questions. Pt still vomiting. Medications ordered: Haldol 2.5 mg IV once 07/15/19 04:07 Pt tolerated PO challenge. Requesting discharge. Pt discharged with Zofran prescription. Discharge - Discharge Information Problems reviewed: Yes Clinical Impression/Diagnosis: Nausea & vomiting Condition: Improved Disposition: HOME - Admission No - Additional Discharge Information Prescriptions: Ondansetron [Zofran Odt -] 4 mg SL TID #9 od.tablet - Follow up/Referral - Patient Discharge Instructions Additional Instructions: You came into the emergency department with abdominal pain. Your blood work and CT scan did not show acute pathology. You can take tylenol as needed for pain. Follow the instructions on the medication bottle. As it is likely contributing to your symptoms, avoid using marijuana. We have referred you to a GI specialist. Follow-up within 72 hours to discuss this ED visit and to further evaluate your symptoms. Call and make an appointment in the morning. Your workup is not complete until you do so. I have sent a medication to your pharmacy for Zofran, take as advised on label as needed for nausea/vomiting. It dissolves under the tongue. Immediate medical attention is required if you have: chest pain, palpitations, shortness of breath, severe headaches, changes in vision, focal numbness or weakness, severe abdominal pain, black tarry stool, or any new or concerning symptoms. If you think you are having an emergency, call for emergency medical services or present to the emergency department right away. - Post Discharge Activity Work/Back to School Note: Back to Work
[2019-07-15] MEDS ORDERED: HALOPERIDOL LACTATE 5 MG/ML ONE (02:33)
[2019-07-15 04:30] VITALS: BP 124/76; PULSE 86
--- NOTE | 2019-07-16 10:42 | EKG ---
Test Reason : Blood Pressure : / mmHG Vent. Rate : 072 BPM Atrial Rate : 072 BPM P-R Int : 142 ms QRS Dur : 076 ms QT Int : 442 ms P-R-T Axes : 066 072 000 degrees QTc Int : 483 ms NORMAL SINUS RHYTHM WITH SINUS ARRHYTHMIA NONSPECIFIC T WAVE ABNORMALITY ABNORMAL ECG WHEN COMPARED WITH ECG OF 02-APR-2016 18:09, NO SIGNIFICANT CHANGE WAS FOUND Confirmed by JUDIT FOUNTAIN, RUPINDER ([id number]) on 07/16/2019 10:41:55 AM Referred By: Confirmed By:RUPINDER SPAIN MD
== END 2019-07-15 04:25 | disposition home or self-care (01) ==
LOC: JER 21:35
PROC: 3E033GC Introduction of Other Therapeutic Substance into Peripheral Vein, Percutaneous Approach (ICD-10-PCS; principal; 2019-07-14)
PROC: 3E033GC Introduction of Other Therapeutic Substance into Peripheral Vein, Percutaneous Approach (ICD-10-PCS; 2019-07-14)
PROC: 3E033NZ Introduction of Analgesics, Hypnotics, Sedatives into Peripheral Vein, Percutaneous Approach (ICD-10-PCS; 2019-07-14)
PROC: 3E033NZ Introduction of Analgesics, Hypnotics, Sedatives into Peripheral Vein, Percutaneous Approach (ICD-10-PCS; 2019-07-14)
PROC: 3E033GC Introduction of Other Therapeutic Substance into Peripheral Vein, Percutaneous Approach (ICD-10-PCS; 2019-07-14)
PROC: 3E033GC Introduction of Other Therapeutic Substance into Peripheral Vein, Percutaneous Approach (ICD-10-PCS; 2019-07-14)
DX: R10.13 Epigastric pain (principal); R11.2 Nausea with vomiting, unspecified; F12.10 Cannabis abuse, uncomplicated; Z86.79 Personal history of other diseases of the circulatory system
CPT/HCPCS: 36415; 74177-TC; 80053; 83690; 84703; 85025; 93005; 93010; 96365; 96375; 99283-25; J0131; J7030

== ENCOUNTER 2020-04-25 15:10 | Emergency (ER) | payer OTHER ==
--- NOTE | 2020-04-25 15:45 | PDOC ---
History of Present Illness - General Chief Complaint: Pain Stated Complaint: ABD PAIN - History of Present Illness Initial Comments: 25 YOF h/o pericarditis (5 years prior to arrival) presents with abdominal pain, nausea, and vomiting. Patient reports that pain is primarily located in epigastrum, 10/10 in intensity, is both sharp and burning in quality, nothing makes better or worse. Denies fever or chills, diarrhea, chest pain, recent sick contacts or recent travel. Past History - Medical History Allergies/Adverse Reactions: Allergies Allergy/AdvReac Type Severity Reaction Status Date / Time No Known Allergies Allergy Verified 10/31/19 13:45 Home Medications: Ambulatory Orders Naproxen [Naprosyn -] 250 mg PO BID PRN #30 tablet 06/01/17 Metoclopramide HCl [Reglan] 10 mg PO BID PRN #10 tablet 10/20/17 Ondansetron [Zofran Odt -] 4 mg SL TID #9 od.tablet 07/15/19 Ondansetron HCl [Zofran] 4 mg PO Q6H PRN #12 tablet 10/31/19 Asthma: Yes Cardiac Disorders: Yes (PERICARDITIS.) COPD: No - Immunization History Immunization Up to Date: No - Psycho-Social/Smoking History Smoking Status: No Smoking History: Never smoked Have you smoked in the past 12 months: Yes Number of Cigarettes Smoked Daily: 0 Review of Systems - Review of Systems Constitutional: Yes: See HPI HEENTM: Yes: See HPI Respiratory: Yes: See HPI Cardiac (ROS): Yes: See HPI ABD/GI: Yes: See HPI : Yes: See HPI Musculoskeletal: Yes: See HPI Integumentary: Yes: See HPI Neurological: Yes: See HPI Endocrine: Yes: See HPI Hematologic/Lymphatic: Yes: See HPI *Physical Exam - Physical Exam General Appearance: Yes: Appropriately Dressed, Apparent Distress, Other (Patient is writhing in bed unable to find comfortable position, intermittently calls out in pain) HEENT: positive: EOMI, [place], Normal ENT Inspection, Normal Voice Neck: positive: Trachea midline, Normal Thyroid Respiratory/Chest: positive: Lungs Clear, Normal Breath Sounds Cardiovascular: positive: Regular Rhythm, Regular Rate, S1, S2 Gastrointestinal/Abdominal: positive: Normal Bowel Sounds, Tender, Flat, Soft, Tenderness Musculoskeletal: positive: Normal Inspection, CVA Tenderness Extremity: positive: Normal Capillary Refill, Normal Inspection Integumentary: positive: Normal Color, Dry, Warm, Cyanotic ED Treatment Course - LABORATORY CBC & Chemistry Diagram: 04/25/20 16:50 04/25/20 16:50 Medical Decision Making - Medical Decision Making 25 YOF h/o pericarditis abdominal pain, nausea, and vomitting - will do cbc, cmp, lipase, lactate, UA - chart check reveals h/o gall stones - will do RUQ ultrasound - will give metoclopramide, IV tylenol, and fluids 04/25/20 18:59 - labs unremarkable - will give Ativan and morphine for further sx management - Pt signed out to night team 04/25/20 19:01 Discharge - Discharge Information Problems reviewed: Yes Clinical Impression/Diagnosis: Nausea & vomiting - Follow up/Referral Referrals: Ozzy Alejandre MD [Primary Care Provider] - - Patient Discharge Instructions - Post Discharge Activity
[2020-04-25] MEDS ORDERED: ACETAMINOPHEN 1000 MG/100 ML VIAL (NON FORMULARY) IVPB ONE (16:01)
[2020-04-25 16:21] VITALS: TEMP 97.6; BMI 36.0
[2020-04-25] MEDS ORDERED: ACETAMINOPHEN INJECTION 100 ML IVPB ONE (16:37)
[2020-04-25] MEDS ORDERED: METOCLOPRAMIDE HCL INJECTION 10 MG/2 ML VIAL IVPUSH ONE (16:51)
[2020-04-25] MEDS ORDERED: METOCLOPRAMIDE HCL INJECTION 10 MG/2 ML VIAL ONE (16:52)
[2020-04-25 17:26] LABS: BASO % 0.6 % (0-2.0); EOS % 0.3 % (0-4.5); HEMATOCRIT 38.2 % (32.4-45.2); HEMOGLOBIN 12.3 GM/dL (10.7-15.3); LYMPH % 10.6 % (8-40); MCHC 32.2 g/dl (32.0-36.0); MEAN CELL VOLUME 83.8 fl (80-96); MEAN PLT VOLUME 8.6 fl (7.5-11.1); MONO % 3.6 % (3.8-10.2); NEUT % 84.9 % (42.8-82.8); PLATELET COUNT 327 K/MM3 (134-434); RBC 4.56 M/mm3 (3.60-5.2); WHITE BLOOD COUNT 5.4 K/mm3 (4.0-10.0)
[2020-04-25] MEDS ORDERED: morphine SULFATE 4 MG/ML VIAL IVPUSH ONE (17:36)
[2020-04-25 18:17] LABS: ALBUMIN 3.8 g/dl (3.4-5.0); ALK PHOS 79 U/L (45-117); ANION GAP 9 MMOL/L (8-16); BILIRUBIN,TOTAL 0.7 mg/dL (0.2-1); BLOOD UREA NITROGEN 9.2 mg/dL (7-18); CALCIUM 9.2 mg/dL (8.5-10.1); CHLORIDE 109 mmol/L (98-107); CO2 21 mmol/L (21-32); CREATININE 0.8 mg/dL (0.55-1.3); GLUCOSE,RANDOM 126 mg/dL (74-106); LIPASE 51 U/L (73-393); POTASSIUM 4.2 mmol/L (3.5-5.1); SGOT/AST 20 U/L (15-37); SGPT/ALT 20 U/L (13-61); SODIUM 139 mmol/L (136-145); TOT PROT 7.5 g/dl (6.4-8.2)
[2020-04-25] MEDS ORDERED: morphine SULFATE 4 MG/ML VIAL ONE (18:32)
[2020-04-25] MEDS ORDERED: LORazepam 2 MG/ML SDV VIAL ONE (18:33)
--- NOTE | 2020-04-25 19:08 | PDOC ---
*Physical Exam - Vital Signs Last Vital Signs Temp Pulse Resp BP Pulse Ox 97.6 F 50 L 18 125/82 93 L 04/25/20 15:43 04/25/20 18:40 04/25/20 18:40 04/25/20 18:40 04/25/20 18:40 ED Treatment Course - LABORATORY CBC & Chemistry Diagram: 04/25/20 16:50 04/25/20 16:50 - ADDITIONAL ORDERS Additional order review: Laboratory Results 04/25/20 04/25/20 16:50 16:50 Sodium 139 Potassium 4.2 Chloride 109 H Carbon Dioxide 21 Anion Gap 9 BUN 9.2 Creatinine 0.8 Est GFR (CKD-EPI)AfAm 120.44 Est GFR (CKD-EPI)NonAf 103.92 Random Glucose 126 H Calcium 9.2 Total Bilirubin 0.7 AST 20 ALT 20 Alkaline Phosphatase 79 Creatine Kinase 157 Creatine Kinase Index No Result Required. CK-MB (CK-2) < 1.0 Troponin I < 0.02 Total Protein 7.5 Albumin 3.8 Lipase 51 L Serum , Qual Negative 04/25/20 16:50 RBC 4.56 MCV 83.8 MCHC 32.2 RDW 15.0 MPV 8.6 Neutrophils % 84.9 H Lymphocytes % 10.6 D Monocytes % 3.6 L Eosinophils % 0.3 Basophils % 0.6 - Medications Given in the ED: ED Medications Discontinued Medications Generic Name Dose Route Start Last Admin Trade Name Freq PRN Reason Stop Dose Admin Acetaminophen 1,000 mg 04/25/20 16:01 04/25/20 16:53 Ofirmev Injection - IVPB 04/25/20 16:02 1,000 mg ONCE ONE Administration Lorazepam 0.5 mg 04/25/20 18:30 04/25/20 18:35 Ativan Injection - IVPUSH 04/25/20 18:31 0.5 mg ONCE ONE Administration Metoclopramide HCl 10 mg 04/25/20 16:51 04/25/20 17:09 Reglan Injection - IVPUSH 04/25/20 16:52 10 mg ONCE ONE Administration Morphine Sulfate 4 mg 04/25/20 17:36 04/25/20 18:35 Morphine Sulfate IVPUSH 04/25/20 17:37 4 mg ONCE ONE Administration Medical Decision Making - Medical Decision Making 04/25/20 19:06 Signed out to me by Dr. Pickard. Having epigastric pain, having N/V. Given Reglan/Ofirmev/IVF, still vomiting. Considering Ativan/morphine for nausea/pain. Labs/lipase unremarkable. Pending UA and US RUQ. 04/25/20 20:21 Given Ativan for nausea and patient feeling much better. Brought to US at this time, pending US results. 04/25/20 22:04 US results shows cholelithiasis without evidence of cholecystitis, CBD 0.3. Patient no longer having nausea or vomiting. Labs WNL. Will PO challenge for dispo planning. 04/25/20 23:16 Patient tolerating PO. No more N/V. Reports improved abdominal pain after medications. Says she has this pain whenever she drinks alcohol, and yesterday she had some. Consistent with priors. No urinary symptoms. Will discharge home with f/u instructions and advice to not drink alcohol. Discharge - Discharge Information Problems reviewed: Yes Clinical Impression/Diagnosis: Nausea & vomiting Qualifiers: Vomiting type: unspecified Vomiting Intractability: non-intractable Qualified Code(s): R11.2 - Nausea with vomiting, unspecified Disposition: HOME - Admission No - Follow up/Referral Referrals: Ozzy Alejandre MD [Primary Care Provider] - - Patient Discharge Instructions Patient Printed Discharge Instructions: DI for Alcoholic Gastritis Additional Instructions: Today you were evaluated for nausea and vomiting. Your labs are all normal, and your ultrasound shows that you have some stones in your gallbladder but do not have any infection. Your nausea is probably being caused by the alcohol you drank, and we advise that you do not drink any in the near future as it heavily upsets your stomach. Also do not smoke marijuana, as this can cause a similar nausea and vomiting. See your regular doctor for further care. If you experience worsening nausea, vomiting, diarrhea, become unable to eat, or have any other new or concerning symptoms, please return to the emergency room. - Post Discharge Activity Work/Back to School Note: Back to Work
[2020-04-25] MEDS ORDERED: SODIUM CHLORIDE 1,000 ML IV STA (20:16)
--- NOTE | 2020-04-25 20:16 | PDOC ---
Documentation entered by Maryuri Hall SCRIBE, acting as scribe for Ernie Winn MD. Ernie Winn MD: This documentation has been prepared by the Isabel holt Xhesika, SCRIBE, under my direction and personally reviewed by me in its entirety. I confirm that the documentation accurately reflects all work, treatment, procedures, and medical decision making performed by me. Attending Attestation - Resident Resident Name: SidneyVince shea - ED Attending Attestation I have performed the following: I have examined & evaluated the patient, The case was reviewed & discussed with the resident, I agree w/resident's findings & plan, Exceptions are as noted - HPI HPI: 04/25/20 17:39 The patient is a 25 y/o female with a PMH of pericarditis, who presents to the ED BIBA for abdominal pain. The patient states the pain began spontaneously at 4am, located in the epigastric region, non-radiating, accompanied by nausea and multiple episodes of vomiting. Pt states she endorsed similar pain a couple of months ago. Denies post prandial pain. Denies treatments tried. Denies marijuana use. The patient denies chest pain, shortness of breath, headache and dizziness. Denies fever, chills, cough, diarrhea and constipation. Denies dysuria, frequency, urgency and hematuria. Allergies: NKDA - Physicial Exam PE: 04/25/20 20:09 GENERAL: Awake, alert, and fully oriented, in no acute distress but appears uncomfortable EYES: PERRLA, EOMI, sclera anicteric, conjunctiva clear ENT: Oropharynx clear without exudates. dry MM NECK: Normal ROM, supple, no lymphadenopathy, JVD, or masses LUNGS: Breath sounds equal, clear to auscultation bilaterally. No wheezes, and no crackles HEART: Regular rate and rhythm, normal S1 and S2, no murmurs, rubs or gallops ABDOMEN: Soft, +epigastric ttp, neg valadez sign, no other ttp. normoactive bowel sounds. No guarding, no rebound. No masses EXTREMITIES: Normal range of motion, no edema. No clubbing or cyanosis. No cords, erythema, or tenderness NEUROLOGICAL: Normal speech, cranial nerves intact, equal strength and sensation b/l SKIN: Warm, Dry, normal turgor, no rashes or lesions noted. - Medical Decision Making 04/25/20 20:12 25yo F hx pericarditis presents to the ED with epigastric pain a/w N/V DDx includes pericarditis vs GERD vs cholecystitis vs gastritis Plan: -labs -preg test -antiemetics and pain control -RUQ US -reassess 04/25/20 23:29 RUQ US with cholelithiasis but no cholecystitis Labs wnl Pt reports complete resolution of pain after morphine and nausea after reglan and ativan - gave ativan for nausea 2/2 borderline QTC of 480 No vomiting while in the ED Pt now admits to drinking 1 cup of etoh last night and states this often happens after etoh use Likely alcoholic gastritis Tolerating PO with multiple rpt abd exams beningn with no ttp Discussed limiting etoh use given recurrence of sxs when she drinks Pt clinically well appearing and stable for DC home I discussed the physical exam findings, ancillary test results and final diagnoses with the patient. I answered all of the patient's questions. The patient was satisfied with the care received and felt comfortable with the discharge plan and treatment plan. The patient will call their primary care physician within 24 hours to arrange follow-up and will return to the Emergency Department with any new, persistent or worsening symptoms. Discharge - Discharge Information Problems reviewed: Yes Clinical Impression/Diagnosis: Gastritis, Vomiting Nausea & vomiting Qualifiers: Vomiting type: unspecified Vomiting Intractability: non-intractable Qualified Code(s): R11.2 - Nausea with vomiting, unspecified Disposition: HOME - Follow up/Referral Referrals: Ozzy Alejandre MD [Primary Care Provider] - - Patient Discharge Instructions Patient Printed Discharge Instructions: DI for Alcoholic Gastritis Additional Instructions: Today you were evaluated for nausea and vomiting. Your labs are all normal, and your ultrasound shows that you have some stones in your gallbladder but do not have any infection. Your nausea is probably being caused by the alcohol you drank, and we advise that you do not drink any in the near future as it heavily upsets your stomach. Also do not smoke marijuana, as this can cause a similar nausea and vomiting. See your regular doctor for further care. If you experience worsening nausea, vomiting, diarrhea, become unable to eat, or have any other new or concerning symptoms, please return to the emergency room. - Post Discharge Activity Work/Back to School Note: Back to Work
[2020-04-25 21:18] VITALS: BP 98/63; PULSE 62
--- NOTE | 2020-04-28 11:38 | EKG ---
Test Reason : Blood Pressure : / mmHG Vent. Rate : 057 BPM Atrial Rate : 057 BPM P-R Int : 140 ms QRS Dur : 094 ms QT Int : 488 ms P-R-T Axes : -48 066 043 degrees QTc Int : 474 ms UNUSUAL P AXIS, POSSIBLE ECTOPIC ATRIAL BRADYCARDIA WITH UNDETERMINED RHYTHM IRREGULARITY ABNORMAL ECG WHEN COMPARED WITH ECG OF 15-JUL-2019 00:24, ECTOPIC ATRIAL RHYTHM HAS REPLACED SINUS RHYTHM T WAVE VARIATION Confirmed by JUDIT FOUNTAIN, RUPINDER ([id number]) on 04/28/2020 11:38:16 AM Referred By: Confirmed By:RUPINDER SPAIN MD
== END 2020-04-26 00:51 | disposition home or self-care (01) ==
LOC: JER 15:10
PROC: 3E033NZ Introduction of Analgesics, Hypnotics, Sedatives into Peripheral Vein, Percutaneous Approach (ICD-10-PCS; principal; 2020-04-25)
PROC: 3E033GC Introduction of Other Therapeutic Substance into Peripheral Vein, Percutaneous Approach (ICD-10-PCS; 2020-04-25)
DX: R11.2 Nausea with vomiting, unspecified (principal)
CPT/HCPCS: 36415; 76705-TC; 80053; 82550; 82553; 83605; 83690; 84484; 84703; 85025; 93005; 93010; 99285-25; J0131

== ENCOUNTER 2020-04-26 09:25 | Inpatient (IN) | payer OTHER ==
--- NOTE | 2020-04-26 10:50 | PDOC ---
History of Present Illness - General Chief Complaint: Pain, Acute Stated Complaint: ABDOMINAL PAIN Time Seen by Provider: 04/26/20 10:34 History Source: Patient Exam Limitations: No Limitations - History of Present Illness Initial Comments: 04/26/20 10:57 25F h/o pericariditis returning to ED for epigastric pain, nausea and nbnb vomiting shortly after getting home. Was seen for same pain yesterday, dc'd in the AM s/p morphine and ativan. RUQ US showing stones w/o acute mikhail. h/o similar pain after etoh use. no abd surgeries. endorses chills. states occasional etoh use, denies tobacco, denies other ilicit drug use. Past History - Medical History Allergies/Adverse Reactions: Allergies Allergy/AdvReac Type Severity Reaction Status Date / Time No Known Allergies Allergy Verified 04/26/20 09:41 Home Medications: Ambulatory Orders NK [No Known Home Medication] 04/26/20 Asthma: Yes Cardiac Disorders: Yes (PERICARDITIS.) COPD: No - Reproductive History Is Patient Now?: No - Immunization History Immunization Up to Date: No - Psycho-Social/Smoking History Smoking Status: No Smoking History: Unknown if ever smoked Have you smoked in the past 12 months: Yes Number of Cigarettes Smoked Daily: 0 - Substance Abuse Hx (Audit-C & DAST Scrn) How often the patient has a drink containing alcohol: 2-4 times / month Score: In Men: 4 or > Positive; In Women: 3 or > Positive: 2 Screen Result (Pos requires Nsg. Audit-10AR): Negative In the last yr the pt used illegal drug/Rx for NonMed reason: No Score: Yes response is considered Positive: 0 Screen Result (Positive result requires Nsg. DAST-10): Negative Review of Systems - Review of Systems Comments:: CONSTITUTIONAL: +chills HEENT: Denies sore throat, rhinorrhea RESP: Denies SOB CARD: pain from wretching GI: + n/v, epigastric pain : Denies dysuria NEURO: Denies numbness, tingling, weakness MSK: Denies back pain SKIN: Denies rashes *Physical Exam - Vital Signs Last Vital Signs Temp Pulse Resp BP Pulse Ox 98.8 F 50 L 22 H 120/60 98 04/26/20 09:40 04/26/20 09:40 04/26/20 09:40 04/26/20 09:40 04/26/20 09:40 - Physical Exam GEN: Tired appearing, in and out of sleep during H&P, Orientedx3. HEENT: NC/AT, EOMI, PERRL. No facial asymmetry. Normal voice. Supple neck w/ FROM. CV: S1/S2, RRR, no m/r/g LUNG: CTAB, no wheezes, crackles, rales, rhonchi. GI: +TTP epigastric w/ slight RUQ discomfort o/w soft, ndnt, +BS, no guarding, no rebound. MSK: No obvious deformities of all extremities. SKIN: Warm, dry, no rashes appreciated. PSYCH: odd affect, frequently falling asleep during H&P NEURO: Moving all extremities well. ED Treatment Course - LABORATORY CBC & Chemistry Diagram: 04/26/20 12:20 04/26/20 12:20 Medical Decision Making - Medical Decision Making 25F w/ colicky epigastric pain w/ n/v. Stone on RUQ US last night. TTP of the epigastrium DDX - biliary colic, gastritis; unlikely PUD or perforated viscous - will check abd labs - GI cocktail - reassess 04/26/20 14:04 pain not well controlled on initial management will provide morphine admit for biliary colic 04/26/20 15:00 Dr. Bermudez made aware of case Endorsed to [facility] for admission Discharge - Discharge Information Problems reviewed: Yes Clinical Impression/Diagnosis: Biliary colic Condition: Stable - Admission Yes - Follow up/Referral - Patient Discharge Instructions - Post Discharge Activity
[2020-04-26] MEDS ORDERED: ACETAMINOPHEN 1000 MG/100 ML VIAL (NON FORMULARY) IVPB ONE (10:56)
[2020-04-26] MEDS ORDERED: SODIUM CHLORIDE 0.9% 500 ML INFUS.BAG IV ONE (10:56)
[2020-04-26] MEDS ORDERED: FAMOTIDINE 20 MG/50 ML IVPB 20 MG/50 ML MG IVPB ONE (10:56)
[2020-04-26] MEDS ORDERED: ACETAMINOPHEN INJECTION 100 ML IVPB ONE (11:11)
--- NOTE | 2020-04-26 12:06 | PDOC ---
Documentation entered by Sana Vines SCRIBE, acting as scribe for Caden Melvin MD. Caden Melvin MD: This documentation has been prepared by the scribe, Sana Vines SCRIBE, under my direction and personally reviewed by me in its entirety. I confirm that the documentation accurately reflects all work, treatment, procedures, and medical decision making performed by me. Attending Attestation - Resident Resident Name: Logan Langston - ED Attending Attestation I have performed the following: I have examined & evaluated the patient, The case was reviewed & discussed with the resident, I agree w/resident's findings & plan, Exceptions are as noted - HPI HPI: 04/26/20 10:38 Patient is a 25 year old female with no significant past medical history who presents to the ED with nausea, vomiting, and episgastric pain x1 day. Pt notes the pain is a cramping/sharp type pain worse with food intake. Associated with food intake, especially food intake. Pt was inthe ED yesterday for evaluation of the same sypmtoms had labs and US showing gall stones without cholecystitis. Patient denies: any other related symptoms. Allergies: NKDA - Physicial Exam PE: 04/26/20 12:05 general: no acute distress, well appearing abd exam: mild epigastric/rug tendenres,s no rebound/guarding, no cva tenderness - Medical Decision Making 04/26/20 12:05 suspect gall stone pain will give toradol, pepcid/maalox consider surgery fu if persistently symptomatic 04/26/20 12:05 04/26/20 15:33 Patient with persistent discomfort secondary to gallstones, will admit for fur ther management Discussed with surgery Heart Score/ECG Review - ECG Impressions Comment:: 04/26/20 15:33 Twelve-lead EKG was performed and reviewed by me. There is normal sinus rhythm with a rate of 53 The axis is normal. Impression: Sinus bradycardia Discharge - Discharge Information Problems reviewed: Yes Clinical Impression/Diagnosis: Biliary colic Condition: Stable - Follow up/Referral - Patient Discharge Instructions - Post Discharge Activity
[2020-04-26 12:54] LABS: BASO % 0.8 % (0-2.0); HEMATOCRIT 35.2 % (32.4-45.2); HEMOGLOBIN 11.7 GM/dL (10.7-15.3); LYMPH % 7.7 % (8-40); MCH 27.7 pg (25.7-33.7); MCHC 33.1 g/dl (32.0-36.0); MEAN CELL VOLUME 83.8 fl (80-96); MEAN PLT VOLUME 8.7 fl (7.5-11.1); MONO % 2.5 % (3.8-10.2); PLATELET COUNT 309 K/MM3 (134-434); RDW 15.5 % (11.6-15.6); WHITE BLOOD COUNT 7.6 K/mm3 (4.0-10.0)
[2020-04-26 13:17] LABS: ALBUMIN 3.7 g/dl (3.4-5.0); ALK PHOS 70 U/L (45-117); ANION GAP 9 MMOL/L (8-16); BILIRUBIN,TOTAL 0.5 mg/dL (0.2-1); BLOOD UREA NITROGEN 14.1 mg/dL (7-18); CALCIUM 9.3 mg/dL (8.5-10.1); CHLORIDE 108 mmol/L (98-107); CO2 23 mmol/L (21-32); CREATININE 0.8 mg/dL (0.55-1.3); GLUCOSE,RANDOM 105 mg/dL (74-106); LIPASE 34 U/L (73-393); POTASSIUM 4.2 mmol/L (3.5-5.1); SGOT/AST 23 U/L (15-37); SGPT/ALT 17 U/L (13-61); SODIUM 140 mmol/L (136-145); TOT PROT 7.3 g/dl (6.4-8.2)
[2020-04-26] MEDS ORDERED: morphine CARPU-JECT 2 MG/1 ML DISP.SYRIN IVPUSH ONE (14:04)
[2020-04-26 14:07] LABS: EPI CELLS 30 /uL (0-25.1); HYALINE CASTS 5 /uL (0-3.1); URINE APPEARANCE CLOUDY; URINE BACTERIA 665 /uL (0-1359); URINE BILIRUBIN NEGATIVE (NEGATIVE); URINE COLOR YELLOW; URINE GLUCOSE (UA) NEGATIVE (NEGATIVE); URINE KETONE 2+ (NEGATIVE); URINE LEUK ESTERASE NEGATIVE (NEGATIVE); URINE NITRITE NEGATIVE (NEGATIVE); URINE PROTEIN 1+ (NEGATIVE); URINE RBC 87 /uL (0-23.9); URINE WBC 33 /uL (0-25.8)
[2020-04-26] MEDS ORDERED: MORPHINE SULFATE 2 MG/ML VIAL ONE (14:55)
[2020-04-26] MEDS ORDERED: MORPHINE SULFATE 2 MG/ML VIAL IVPUSH PRN (22:49)
[2020-04-26] MEDS ORDERED: ACETAMINOPHEN 1000 MG/100 ML VIAL (NON FORMULARY) IVPB PRN (22:51)
[2020-04-26] MEDS ORDERED: ONDANSETRON 4 MG/2 ML VIAL IVPB PRN (22:55)
[2020-04-26 23:10] LABS: COCAINE, UR NEGATIVE ng/ml (CUTOFF=300); URINE BARBITURATES NEGATIVE ng/ml (CUTOFF=200)
[2020-04-26 23:19] LABS: METHADONE, UR NEGATIVE ng/ml (CUTOFF=300); PHENCYCLIDINE,URINE NEGATIVE ng/ml (CUTOFF=25); URINE BENZODIAZEPINES NEGATIVE ng/ml (CUTOFF=200)
[2020-04-26 23:24] LABS: URINE AMPHETAMINES POSITIVE ng/ml (CUTOFF=500)
[2020-04-26 23:25] LABS: OPIATES, URI POSITIVE ng/ml (CUTOFF=300)
[2020-04-27 02:35] VITALS: BMI 36.0
[2020-04-27] MEDS: D5-LR+20 MEQ KCL - 20 MEQ/1,000 ML INFUS.BAG IV SCH ×3 (02:51→20:53)
[2020-04-27] MEDS: PANTOPRAZOLE SODIUM 40 MG VIAL IVPUSH SCH (09:55)
--- NOTE | 2020-04-27 10:48 | CONSULT ---
- Consultation REQUESTING PROVIDER: Logan Langston MD CONSULT REQUEST: We have been asked to surgically evaluate this patient for biliary colic Hospitalist:Jeremy Haywood HISTORY OF PRESENT ILLNESS: ALFONZO who is a 25 y/o A/A who returned to the [facility] ED after initial evaluation and discharge 04/25/2020 for epigastric and RUQ sharp pain, nausea and vomiting shortly after getting home 04/25/2020. She has known symptomatic gallbladder disease dating back to October 2019. Was seen for same pain 04/25/2020, dc'd in the AM s/p morphine and ativan. ? h/o similar pain after having a celebratory drink w/friends. 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 She never had a f/u after the intial dx. b/o COVID and work. I reviewed her tox screen; she denies drug use ? She had a CT 07/2019 showing cholelithiasis as well. PMHx: ? pericarditis ? PSHx: none Home Medications Medication Instructions Recorded NK [No Known Home Medication] 04/26/20 Allergies Allergy/AdvReac Type Severity Reaction Status Date / Time No Known Allergies Allergy Verified 04/26/20 09:41 REVIEW OF SYSTEMS: CONSTITUTIONAL: Absent: fever, chills, diaphoresis, generalized weakness, malaise, loss of appetite, weight change CARDIOVASCULAR: Present:: chest pain, Absent: syncope, palpitations, irregular heart rate, ligh theadedness, peripheral edema RESPIRATORY: Absent: cough, shortness of breath, dyspnea with exertion, wheezing, stridor, hemoptysis GASTROINTESTINAL: Present: abdominal pain, abdominal distension, nausea, vomiting. Absent:diarrhea, constipation, melena, hematochezia GENITOURINARY: Absent: dysuria, frequency, urgency, hesitancy, hematuria, flank pain, genital pain MUSCULOSKELETAL: Absent: myalgia, arthralgia, joint swelling, back pain, neck pain SKIN: Absent: rash, itching, pallor HEMATOLOGIC/IMMUNOLOGIC: Absent: easy bleeding, easy bruising, lymphadenopathy NEUROLOGIC: Absent: headache, focal weakness, paresthesias, dizziness, unsteady gait, seizure, mental status changes, bladder or bowel incontinence PSYCHIATRIC: Absent: anxiety, depression, suicidal or homicidal ideation, hallucinations. PHYSICAL EXAM: GENERAL: Awake, alert, and fully oriented, in no acute distress. HEAD: Normal with no signs of trauma. EYES: sclera anicteric, conjunctiva clear. NECK: Normal ROM, supple without lymphadenopathy, JVD, or masses. ABDOMEN: Soft, minimal RUQ tenderness, not distended, normoactive bowel sounds, no guarding, no rebound, no masses. No organomegaly. No hernias MUSCULOSKELETAL: Normal ROM at all joints. No bony deformities or tenderness. No CVA tenderness. UPPER EXTREMITIES: 2+ pulses, warm, well-perfused. No cyanosis. Cap refill <2 seconds. No peripheral edema. LOWER EXTREMITIES: 2+ pulses, warm, well-perfused. No calf tenderness. No peripheral edema. NEUROLOGICAL: Normal speech, gait not observed. PSYCH: Cooperative. Good eye contact. Appropriate mood and affect. SKIN: Warm, dry, normal turgor, no rashes or lesions noted. Vital Signs Temperature 98.4 F 04/27/20 06:48 Pulse Rate 63 04/27/20 06:48 Respiratory Rate 20 04/27/20 06:48 Blood Pressure 129/75 04/27/20 06:48 O2 Sat by Pulse Oximetry (%) 98 04/26/20 23:04 Lab Results WBC 7.6 K/mm3 (4.0-10.0) 04/26/20 12:20 RBC 4.20 M/mm3 (3.60-5.2) 04/26/20 12:20 Hgb 11.7 GM/dL (10.7-15.3) 04/26/20 12:20 Hct 35.2 % (32.4-45.2) 04/26/20 12:20 MCV 83.8 fl (80-96) 04/26/20 12:20 MCHC 33.1 g/dl (32.0-36.0) 04/26/20 12:20 RDW 15.5 % (11.6-15.6) 04/26/20 12:20 Plt Count 309 K/MM3 (134-434) 04/26/20 12:20 Sodium 140 mmol/L (136-145) 04/26/20 12:20 Potassium 4.2 mmol/L (3.5-5.1) 04/26/20 12:20 Chloride 108 mmol/L (98-107) H 04/26/20 12:20 Carbon Dioxide 23 mmol/L (21-32) 04/26/20 12:20 Anion Gap 9 MMOL/L (8-16) 04/26/20 12:20 BUN 14.1 mg/dL (7-18) 04/26/20 12:20 Creatinine 0.8 mg/dL (0.55-1.3) 04/26/20 12:20 Random Glucose 105 mg/dL (74-106) 04/26/20 12:20 Calcium 9.3 mg/dL (8.5-10.1) 04/26/20 12:20 Imaging w/u reviewed; current and past. IMP: recurrent biliary colic PLAN: Recommend lap mikhail possible open; r/b/t/a's d/w the patient who is amenable to same; she may have clear liquids today and NPO after MN. Poli Bermudez MD FACS
--- NOTE | 2020-04-27 10:51 | HP ---
"Admitting History and Physical - Primary Care Physician PCP: Jeremy Haywood - Admission Chief Complaint: Abdominal pain History of Present Illness: 25F h/o pericariditis returning to ED for epigastric pain, nausea and nbnb vomiting shortly after getting home from [facility] ER the night before for same cc. Was seen for same pain 24 hours prior to this admission, dc'd in the AM s/p morphine and ativan. RUQ US showing stones w/o acute mikhail. h/o similar pain af ter etoh use. no abd surgeries. endorses chills. states occasional etoh use, denies tobacco, denies other ilicit drug use. Multiple ER visits for abd pain/nausea Search Terms: DILEEP CORONEL, 1995 Search Date: 04/27/2020 10:49:12 AM The Drug Utilization Report below displays all of the controlled substance prescriptions, if any, that your patient has filled in the last twelve months. The information displayed on this report is compiled from pharmacy submissions to the Department, and accurately reflects the information as submitted by the pharmacies. This report was requested by: Francisco De Santiago | Reference #: [id number] There are no results for the search terms that you entered. NAD c/o mild RUQ+ epigastric tenderness Seen by Surgery Denies any N/V at this time. Urine Tox + marijuana (admits to smoking marijuana 2 weeks ago), + opiates (2/2 to morphine given in ER the day before?), + amphetamines (states she took some OTC meds for her sinus that contained decongestant-can give false + amphetamine) History Source: Patient Limitations to Obtaining History: No Limitations - Past Medical History Cardiovascular: Yes: Other (pericarditis) ...LMP: 04/24/20 ...: No - Smoking History Smoking history: Unknown if ever smoked Have you smoked in the past 12 months: Yes Aproximately how many cigarettes per day: 0 - Alcohol/Substance Use Hx Alcohol Use: No Home Medications - Allergies Allergies/Adverse Reactions: Allergies Allergy/AdvReac Type Severity Reaction Status Date / Time No Known Allergies Allergy Verified 04/26/20 09:41 - Home Medications Home Medications: Ambulatory Orders NK [No Known Home Medication] 04/26/20 Review of Systems - Review of Systems Constitutional: reports: No Symptoms Eyes: reports: No Symptoms HENT: reports: No Symptoms Neck: reports: No Symptoms Cardiovascular: reports: No Symptoms Respiratory: reports: No Symptoms Gastrointestinal: reports: Abdominal Pain, Nausea Genitourinary: reports: No Symptoms Breasts: reports: No Symptoms Reported Musculoskeletal: reports: No Symptoms Integumentary: reports: No Symptoms Neurological: reports: No Symptoms Endocrine: reports: No Symptoms Hematology/Lymphatic: reports: No Symptoms Psychiatric: reports: No Symptoms Physical Examination Vital Signs: Vital Signs Temperature 98.4 F 04/27/20 06:48 Pulse Rate 63 04/27/20 06:48 Respiratory Rate 04/27/20 06:48 Blood Pressure 129/75 04/27/20 06:48 O2 Sat by Pulse Oximetry (%) 98 04/26/20 23:04 Constitutional: Yes: Well Nourished, No Distress, Calm Cardiovascular: Yes: Regular Rate and Rhythm Respiratory: Yes: Regular, CTA Bilaterally Gastrointestinal: Yes: Normal Bowel Sounds, Soft, Tenderness (RUQ), Tenderness, Epigastrium Renal/: Yes: WNL Musculoskeletal: Yes: WNL Extremities: Yes: WNL Edema: No Peripheral Pulses WNL: Yes Neurological: Yes: Alert, Oriented Psychiatric: Yes: Alert, Oriented Labs: CBC, BMP 04/26/20 12:20 04/26/20 12:20 Problem List - Problems (1) Biliary colic Assessment/Plan: -U/S abd + gallstones without acute cholecystitis -Surgical consult -To OR in AM -NPO past MN -IVF -PPI -Pain management Acetaminophen 1 gm Q6H PRN for pain 1-5 Morphine 2 mg Q4H PRN for pain 6-10 -Zofran for nausea Problems reviewed: Yes Code(s): K80.50 - CALCULUS OF BILE DUCT W/O CHOLANGITIS OR CHOLECYST W/O OBST (2) Gallstones Problems reviewed: Yes Code(s): K80.20 - CALCULUS OF GALLBLADDER W/O CHOLECYSTITIS W/O OBSTRUCTION (3) Nausea & vomiting Problems reviewed: Yes Code(s): R11.2 - NAUSEA WITH VOMITING, UNSPECIFIED Qualifiers: Vomiting type: unspecified Vomiting Intractability: non-intractable Qualified Code(s): R11.2 - Nausea with vomiting, unspecified Assessment/Plan See problem list COVID 19 PCR pending Medically stable for OR with low risk."
[2020-04-28] MEDS: D5-LR+20 MEQ KCL - 20 MEQ/1,000 ML INFUS.BAG IV SCH (03:27)
--- NOTE | 2020-04-28 07:30 | PN ---
Progress Note, Physician Chief Complaint: AWAKE ALERT COMFORTABLE DENIES FEVER OR N/V TODAY - Current Medication List Current Medications: Active Medications Dextrose/Lactated Ringer's (D5-Lr+20 Meq Kcl -) 20 meq in 1,000 mls @ 75 mls/hr IV ASDIR [facility] Last Admin: 04/28/20 03:27 Dose: Not Given Documented by: Morphine Sulfate (Morphine Sulfate) 2 mg IVPUSH Q4H PRN PRN Reason: PAIN LEVEL 6-10 Ondansetron HCl (Zofran Injection) 8 mg IVPB Q8H PRN PRN Reason: NAUSEA Pantoprazole Sodium (Protonix Iv) 40 mg IVPUSH DAILY [facility] Last Admin: 04/27/20 09:55 Dose: 40 mg Documented by: - Objective Vital Signs: Vital Signs Temperature 98.2 F 04/28/20 06:31 Pulse Rate 51 L 04/28/20 06:31 Respiratory Rate 18 04/28/20 06:31 Blood Pressure 120/72 04/28/20 06:31 O2 Sat by Pulse Oximetry (%) 98 04/28/20 06:31 Constitutional: Yes: Mild Distress Cardiovascular: Yes: Regular Rate and Rhythm Respiratory: Yes: WNL Gastrointestinal: Yes: Soft, Abdomen, Obese Genitourinary: Yes: WNL Musculoskeletal: Yes: WNL Edema: No Integumentary: Yes: WNL Neurological: Yes: WNL Labs: CBC, BMP 04/26/20 12:20 04/26/20 12:20 Problem List - Problems (1) Substance abuse Code(s): F19.10 - OTHER PSYCHOACTIVE SUBSTANCE ABUSE, UNCOMPLICATED (2) Biliary colic Code(s): K80.50 - CALCULUS OF BILE DUCT W/O CHOLANGITIS OR CHOLECYST W/O OBST (3) Gallstones Code(s): K80.20 - CALCULUS OF GALLBLADDER W/O CHOLECYSTITIS W/O OBSTRUCTION (4) Nausea & vomiting Code(s): R11.2 - NAUSEA WITH VOMITING, UNSPECIFIED Qualifiers: Vomiting type: unspecified Vomiting Intractability: non-intractable Qualified Code(s): R11.2 - Nausea with vomiting, unspecified Assessment/Plan MEDICALLY CLEARED FOR LAPCHOL OR OPEN ABD SURGERY DUE TO BODY HABITUS. NO CONTRAINDICATION FOR SURGERY BENEFIT OUTWEIGHS THE RISK. I D/W THE PATIENT ABOUT SUBSTANCE ABUSE AND OFFERED OUTPATIENT DETOX/PSYCHOTHERAPY SHE AGREES. IVF NPO DVT PROPHYLAXIS CHECK LABS
[2020-04-28] MEDS ORDERED: PT OWN MED DRAWER 7, Y5N ONE (08:50)
[2020-04-28 10:22] LABS: HEMATOCRIT 36.2 % (32.4-45.2); MCHC 33.2 g/dl (32.0-36.0); MEAN CELL VOLUME 84.6 fl (80-96); MEAN PLT VOLUME 8.7 fl (7.5-11.1); PLATELET COUNT 288 K/MM3 (134-434); RBC 4.28 M/mm3 (3.60-5.2); RDW 15.1 % (11.6-15.6); WHITE BLOOD COUNT 4.1 K/mm3 (4.0-10.0)
[2020-04-28 10:58] LABS: ALBUMIN 3.2 g/dl (3.4-5.0); BILIRUBIN,TOTAL 0.5 mg/dL (0.2-1); BLOOD UREA NITROGEN 13.1 mg/dL (7-18); CALCIUM 8.6 mg/dL (8.5-10.1); CREATININE 0.9 mg/dL (0.55-1.3); POTASSIUM 4.1 mmol/L (3.5-5.1); TOT PROT 6.6 g/dl (6.4-8.2)
--- NOTE | 2020-04-28 11:02 | EKG ---
Test Reason : Blood Pressure : / mmHG Vent. Rate : 053 BPM Atrial Rate : 053 BPM P-R Int : 118 ms QRS Dur : 092 ms QT Int : 502 ms P-R-T Axes : 011 058 044 degrees QTc Int : 471 ms SINUS BRADYCARDIA WITH MARKED SINUS ARRHYTHMIA OTHERWISE NORMAL ECG WHEN COMPARED WITH ECG OF 25-APR-2020 16:56, SINUS RHYTHM HAS REPLACED ECTOPIC ATRIAL RHYTHM Confirmed by RUPINDER SPAIN MD ([id number]) on 04/28/2020 11:02:34 AM Referred By: Confirmed By:RUPINDER SPAIN MD
[2020-04-28] MEDS: PANTOPRAZOLE SODIUM 40 MG VIAL IVPUSH SCH (14:09)
--- NOTE | 2020-04-28 16:26 | PN ---
Progress Note (short form) - Note Progress Note: Surgery: Pt states that she isn't having nausea or emesis. Her pain has improved. Vital Signs Period Temp Pulse Resp BP Sys/Solis Pulse Ox Last 24 Hr 98.2 F-98.8 F 51-60 18-18 110-120/60-72 96-100 GEN: A&0x3, NAD ABD: soft, non-distended, mild RUQ with deep palpation. No rebound or guarding CBC, BMP 04/28/20 09:10 04/28/20 09:10 Laboratory Tests 04/28/20 09:10 Total Bilirubin 0.5 AST 27 ALT 18 Alkaline Phosphatase 64 Total Protein 6.6 Albumin 3.2 L A/P; 25 yo female with symptomatic GB disease Surgery cancelled late this afternoon because of emergency, offered to reschedule for tomorrow. Spoke with the patient and she states she wishes to go home. Clear liquid diet ordered placed and she is stable for discharge if she tolerates a liquid diet and her pain doesn't increase. Advised her to advance her diet slowly and to f/u with Dr. Bermudez to schedule an outpatient lap mikhail D/w Dr. Bermudez <Denise Alexander - Last Filed: 04/28/20 16:30> - Note Progress Note: Attending Surgeon: I personally saw and examined the patient. My examination reveals a patient with recurrent symtomatic gallbladder disease. I discussed the case with the surgical PA and agree with their findings and plan of care with any exceptions as noted. ~ Poli Bermudez MD, FACS <Poli Bermudez - Last Filed: 04/28/20 17:24>
[2020-04-29] MEDS ORDERED: LIDOCAINE HCL/PF 2% SDV 5ML VIAL ONE (07:07)
[2020-04-29] MEDS ORDERED: MIDAZOLAM HCL 2 MG/2 ML SINGLE DOSE VIAL ONE ×2 (07:08)
[2020-04-29] MEDS ORDERED: EPHEDRINE SULFATE/0.9% NACL/PF 50 MG/10 ML SYRINGE NR ONE (07:08)
[2020-04-29] MEDS ORDERED: fentaNYL CITRATE 250 MCG/5 ML VIAL ONE (07:08)
[2020-04-29] MEDS ORDERED: PROPOFOL 20 ML ONE ×3 (07:08→08:55)
[2020-04-29] MEDS ORDERED: ROCURONIUM BROMIDE 50 MG/5 ML SYRINGE ONE (07:08)
[2020-04-29] MEDS ORDERED: SUCCINYLCHOLINE CHLORIDE 200 MG/10 ML SYRINGE ONE (07:08)
[2020-04-29] MEDS ORDERED: ONDANSETRON 4 MG/2 ML VIAL IVPUSH PRN ×2 (07:35→11:29)
--- NOTE | 2020-04-29 07:37 | PN ---
Progress Note, Physician - Current Medication List Current Medications: Active Medications Dextrose/Lactated Ringer's (D5-Lr+20 Meq Kcl -) 20 meq in 1,000 mls @ 75 mls/hr IV ASDIR [facility] Last Admin: 04/28/20 03:27 Dose: Not Given Documented by: Morphine Sulfate (Morphine Sulfate) 2 mg IVPUSH Q4H PRN PRN Reason: PAIN LEVEL 6-10 Last Admin: 04/29/20 00:02 Dose: 2 mg Documented by: Ondansetron HCl (Zofran Injection) 8 mg IVPB Q8H PRN PRN Reason: NAUSEA Pantoprazole Sodium (Protonix Iv) 40 mg IVPUSH DAILY [facility] Last Admin: 04/28/20 14:09 Dose: Not Given Documented by: - Objective Vital Signs: Vital Signs Temperature 98.2 F 04/29/20 07:36 Pulse Rate 60 04/29/20 07:36 Respiratory Rate 20 04/29/20 07:36 Blood Pressure 134/67 04/29/20 07:36 O2 Sat by Pulse Oximetry (%) 100 04/29/20 07:36 Cardiovascular: Yes: S1, S2 Respiratory: Yes: Regular, CTA Bilaterally Gastrointestinal: Yes: Normal Bowel Sounds, Soft. No: Tenderness Labs: CBC, BMP 04/28/20 09:10 04/28/20 09:10 Assessment/Plan - Problems (1) Biliary colic Assessment/Plan: -U/S abd + gallstones without acute cholecystitis -Surgical consult--OR today -NPO -IVF -PPI -Pain management Acetaminophen 1 gm Q6H PRN for pain 1-5 Morphine 2 mg Q4H PRN for pain 6-10 -Zofran for nausea Problems reviewed: Yes Code(s): K80.50 - CALCULUS OF BILE DUCT W/O CHOLANGITIS OR CHOLECYST W/O OBST (2) Gallstones Problems reviewed: Yes Code(s): K80.20 - CALCULUS OF GALLBLADDER W/O CHOLECYSTITIS W/O OBSTRUCTION (3) Nausea & vomiting Problems reviewed: Yes Code(s): R11.2 - NAUSEA WITH VOMITING, UNSPECIFIED Qualifiers: Vomiting type: unspecified Vomiting Intractability: non-intractable Qualified Code(s): R11.2 - Nausea with vomiting, unspecified
[2020-04-29] MEDS ORDERED: HYDROmorphone HCl 2 MG/ML VIAL IVPUSH PRN (07:38)
[2020-04-29] MEDS ORDERED: LACTATED RINGERS SOLUTION 1,000 ML IV SCH (07:45)
[2020-04-29] MEDS ORDERED: BUPIVACAINE HCL 100 ML ONE (07:49)
[2020-04-29] MEDS ORDERED: ACETAMINOPHEN INJECTION 100 ML IVPB ONE (07:59)
[2020-04-29] MEDS ORDERED: SCOPOLAMINE HYDROBROMIDE 1 PATCH PATCH.TD72 ONE (07:59)
[2020-04-29] MEDS ORDERED: ceFAZolin SODIUM 1 GM VIAL IVPB ONE (08:15)
[2020-04-29] MEDS ORDERED: ceFAZolin SODIUM 1 GM VIAL ONE (08:23)
[2020-04-29] MEDS ORDERED: DEXAMETHASONE SOD PHOSPHATE 4 MG/1 ML VIAL ONE (08:26)
[2020-04-29] MEDS ORDERED: KETOROLAC TROMETHAMINE 30 MG/1 ML VIAL ONE (08:26)
[2020-04-29] MEDS: D5-LR+20 MEQ KCL - 20 MEQ/1,000 ML INFUS.BAG IV SCH ×2 (08:34→11:45)
[2020-04-29] MEDS ORDERED: GLYCOPYRROLATE 0.2 MG/1 ML VIAL ONE (08:51)
[2020-04-29] MEDS ORDERED: NEOSTIGMINE METHYLSULFATE 0.5 MG/ML - 10 ML MDV ONE (08:52)
[2020-04-29] MEDS ORDERED: BUPIVACAINE HCL/PF 0.5% (5 MG/ML) 30 ML VIAL IJ ONE (09:18)
--- NOTE | 2020-04-29 09:52 | OP ---
Operative Note - Note: Operative Date: 04/29/20 Pre-Operative Diagnosis: acute cholecystitis/cholelithiasis Operation: laparoscopic cholecystectomy Findings: acute cholecystitis/cholelithiasis Post-Operative Diagnosis: Same as Pre-op Surgeon: Poli Bermudez Industrial Recruiter: Denise Alexander Anesthesiologist/SHEET METAL JOURNEYMAN: Maira Ramon Anesthesia: General Specimens Removed: gallbladder and contents Estimated Blood Loss (mls): 10
--- NOTE | 2020-04-29 10:15 | SURG ---
Surgery Dairy Associate Note Dairy Associate: Denise Alexander PA-C Date of Service: 04/29/20 Diagnosis: acute cholecystitis/cholelithiasis Procedure: laparoscopic cholecystectomy I was present for the entirety of the operative procedure. For further detail, please refer to operative report. Visit type - Case Type Case Type: ED Admission - Emergency Emergency Visit: Yes ED Registration Date: 04/26/20 Care time: The patient presented to the Emergency Department on the above date and was hospitalized for further evaluation of their emergent condition. - New patient This patient is new to me today: No
[2020-04-29] MEDS ORDERED: HYDROmorphone HCl 2 MG/ML VIAL ONE (10:16)
[2020-04-29] MEDS: HYDROmorphone HCl 2 MG/ML VIAL IVPUSH PRN ×2 (10:19→10:59)
[2020-04-29] MEDS: PANTOPRAZOLE SODIUM 40 MG VIAL IVPUSH SCH (11:45)
[2020-04-29] MEDS: oxyCODONE HCL 5 MG TABLET PO PRN ×2 (11:48→18:23)
[2020-04-29] MEDS: LACTATED RINGERS SOLUTION 1,000 ML IV SCH (11:50)
[2020-04-29] MEDS: KETOROLAC TROMETHAMINE 15 MG/ML VIAL IVPUSH PRN ×2 (14:19→20:27)
[2020-04-29] MEDS ORDERED: ACETAMINOPHEN 500 MG TABLET (FP) PO PRN (16:00)
[2020-04-29] MEDS ORDERED: MORPHINE SULFATE 2 MG/ML VIAL IVPUSH ONE (23:26)
--- NOTE | 2020-04-30 08:04 | PN ---
Progress Note, Physician History of Present Illness: hungry some abd pain - Current Medication List Current Medications: Active Medications Acetaminophen (Tylenol -) 500 mg PO Q6H PRN PRN Reason: PAIN LEVEL 1 - 3 Last Admin: 04/29/20 18:22 Dose: 500 mg Documented by: Dextrose/Lactated Ringer's (D5-Lr+20 Meq Kcl -) 20 meq in 1,000 mls @ 75 mls/hr IV ASDIR [facility] Last Admin: 04/29/20 11:45 Dose: Not Given Documented by: Lactated Ringer's (Lactated Ringers Solution) 1,000 mls @ 75 mls/hr IV ASDIR [facility] Last Admin: 04/29/20 11:50 Dose: 75 mls/hr Documented by: Ketorolac Tromethamine (Toradol Injection -) 15 mg IVPUSH Q6H PRN PRN Reason: PAIN LEVEL 4-6 Stop: 05/04/20 10:09 Last Admin: 04/29/20 20:27 Dose: 15 mg Documented by: Ondansetron HCl (Zofran Injection) 4 mg IVPUSH Q8H PRN PRN Reason: NAUSEA Oxycodone HCl (Roxicodone -) 5 mg PO Q6H PRN PRN Reason: PAIN LEVEL 7-10 Last Admin: 04/29/20 18:23 Dose: 5 mg Documented by: Pantoprazole Sodium (Protonix Iv) 40 mg IVPUSH DAILY [facility] - Objective Vital Signs: Vital Signs Temperature 98.4 F 04/30/20 07:03 Pulse Rate 46 L 04/30/20 07:03 Respiratory Rate 20 04/30/20 07:03 Blood Pressure 117/80 04/30/20 07:03 O2 Sat by Pulse Oximetry (%) 100 04/30/20 07:03 Cardiovascular: Yes: Regular Rate and Rhythm Respiratory: Yes: Regular, CTA Bilaterally Gastrointestinal: Yes: Normal Bowel Sounds, Soft Labs: CBC, BMP 04/28/20 09:10 04/28/20 09:10 Assessment/Plan - Problems (1) Biliary colic Assessment/Plan: -U/S abd + gallstones without acute cholecystitis -Surgical consult--OR today -Operative Date: 04/29/20 Pre-Operative Diagnosis: acute cholecystitis/cholelithiasis Operation: laparoscopic cholecystectomy Findings: acute cholecystitis/cholelithiasis Post-Operative Diagnosis: Same as Pre-op Surgeon: Poli Bermudez Fast Food Cashier: Denise Alexander -Pain management and Diet per surgery Problems reviewed: Yes Code(s): K80.50 - CALCULUS OF BILE DUCT W/O CHOLANGITIS OR CHOLECYST W/O OBST (2) Gallstones Problems reviewed: Yes Code(s): K80.20 - CALCULUS OF GALLBLADDER W/O CHOLECYSTITIS W/O OBSTRUCTION (3) Nausea & vomiting Problems reviewed: Yes Resolved Code(s): R11.2 - NAUSEA WITH VOMITING, UNSPECIFIED Qualifiers: Vomiting type: unspecified Vomiting Intractability: non-intractable Q ualified Code(s): R11.2 - Nausea with vomiting, unspecified
[2020-04-30] MEDS: oxyCODONE HCL 5 MG TABLET PO PRN (09:32)
[2020-04-30] MEDS ORDERED: PANTOPRAZOLE SODIUM 40 MG VIAL IVPUSH SCH (10:00)
--- NOTE | 2020-04-30 10:24 | PN ---
Progress Note (short form) - Note Progress Note: Surgery: Pt states that she is having some abd pain. Vital Signs Period Temp Pulse Resp BP Sys/Solis Pulse Ox Last 24 Hr 97.6 F-98.7 F 45-71 11-20 110-151/56-104 95-100 GEN: A&0x3, NAD ABD: soft, non-distended, mild RUQ tenderness. inc c/d/i CBC, BMP 04/28/20 09:10 04/28/20 09:10 A/P; 25 yo female with symptomatic GB disease s/p lap mikhail, POD#1 Tolerating a regular diet Continue oob/ambulate D/w Dr. Bermudez and plan for discharge to home, pt surgically stable
[2020-04-30 11:08] LABS: BASO % 0.4 % (0-2.0); EOS % 0.2 % (0-4.5); HEMATOCRIT 33.8 % (32.4-45.2); HEMOGLOBIN 11.3 GM/dL (10.7-15.3); LYMPH % 20.7 % (8-40); MCH 28.2 pg (25.7-33.7); MCHC 33.6 g/dl (32.0-36.0); MEAN PLT VOLUME 8.3 fl (7.5-11.1); MONO % 9.3 % (3.8-10.2); NEUT % 69.4 % (42.8-82.8); PLATELET COUNT 275 K/MM3 (134-434); RBC 4.02 M/mm3 (3.60-5.2); RDW 14.7 % (11.6-15.6); WHITE BLOOD COUNT 5.7 K/mm3 (4.0-10.0)
[2020-04-30 11:39] LABS: BILIRUBIN,TOTAL 0.4 mg/dL (0.2-1); CALCIUM 8.1 mg/dL (8.5-10.1); CREATININE 0.9 mg/dL (0.55-1.3); POTASSIUM 3.6 mmol/L (3.5-5.1); TOT PROT 6.2 g/dl (6.4-8.2)
[2020-04-30 15:11] VITALS: BP 104/63; PULSE 85; TEMP 98.9
[2020-04-30] MEDS: KETOROLAC TROMETHAMINE 15 MG/ML VIAL IVPUSH PRN (15:22)
[2020-04-30] MEDS: LACTATED RINGERS SOLUTION 1,000 ML IV SCH (15:23)
[2020-04-30] MEDS: D5-LR+20 MEQ KCL - 20 MEQ/1,000 ML INFUS.BAG IV SCH (15:23)
--- NOTE | 2020-04-30 17:57 | DS ---
Physical Examination Vital Signs: Vital Signs Temperature 98.9 F 04/30/20 15:10 Pulse Rate 85 04/30/20 15:10 Respiratory Rate 18 04/30/20 15:10 Blood Pressure 104/63 04/30/20 15:10 O2 Sat by Pulse Oximetry (%) 98 04/30/20 15:10 Labs: CBC, BMP 04/30/20 10:23 04/30/20 10:23 Discharge Summary Problems reviewed: Yes Reason For Visit: BILIARY COLIC Current Active Problems Biliary colic (Acute) Substance abuse (Acute) Condition: Stable - Instructions Diet, Activity, Other Instructions: Dr. Bermudez Discharge Instructions Dear DILEEP CORONEL, Post Operative Instructions Physical activity Resume your normal everyday activity as tolerated no heavy lifting or exercise until seen by your surgeon. You may walk unlimited amounts of and climb stairs. You may resume driving the car when you feel safe and comfortable behind the wheel. Wound care You have a liquid bandage over your incisions. This will come off slowly on its own over the next few weeks. Please avoid picking at it if you notice it flaking. You may shower starting tomorrow. When showering allow soap and water to run over the incision. Do not scrub, pat dry after showering. Diet There are no dietary restrictions. Eat healthy, high-fiber foods. Drink 6 to 8 glasses of liquid each day. This will assist in keeping your bowels are regular. Pain management You may take Tylenol or acetaminophen or Ibuprofen (for example, Motrin, Advil etc.) Any pain prescription medication ordered should be taken as prescribed for moderate to severe pain. Call Dr. Bermudez for any of the following: Severe pain not relieved by medication Fever of 101 or higher Excessive bleeding or drainage on dressing Inability to urinate Call the office at [phone] for a post operative appointment in 7 - 10 days. Referrals: Poli Bermudez MD [Staff Physician] - Ozzy Alejandre MD [Primary Care Provider] - 2 Weeks - Home Medications Comprehensive Discharge Medication List: Ambulatory Orders NK [No Known Home Medication] 04/26/20
--- NOTE | 2020-04-30 18:09 | PATH ---
Surgical Pathology Report Patient Name: DILEEP CORONEL Med. Rec. #: [id number] /Age/Gender: 1995 (Age: 25) / F Account: [id number] Location: [facility] MED/SURG Taken: 04/29/2020 Received: 04/29/2020 Reported: 04/30/2020 Physicians: MD Jeremy Diehl M.D. Specimen(s) Received GALLBLADDER Clinical History Biliary colic Final Diagnosis GALLBLADDER, LAPAROSCOPIC CHOLECYSTECTOMY: CHRONIC CHOLECYSTITIS WITH CHOLELITHIASIS. Electronically Signed Catina Griffin M.D. Gross Description Received in formalin, labeled "gallbladder," is a 8 x 2 x 1.5 cm. gallbladder with a 0.5 cm. in length portion of cystic duct attached. The outer surface varies from smooth to shaggy. The lumen contains small fragmented black choleliths. The mucosa is green and velvety. The wall of the gallbladder measures 0.1 cm. in thickness. Cabinet Installer sections are submitted in one cassette. MLSZ/04/29/2020 sanml/04/29/2020
--- NOTE | 2020-05-02 20:01 | OP ---
DATE OF OPERATION: 04/29/2020 PREOPERATIVE DIAGNOSIS: Acute cholecystitis and cholelithiasis. PROCEDURE: Laparoscopic cholecystectomy. SURGEON: Poli Bermudez MD. ON SITE NURSE: ADRIANA Peña. ANESTHESIA: General. OPERATIVE FINDINGS: Acute cholecystitis and cholelithiasis. The rest of the findings are unremarkable. DESCRIPTION OF PROCEDURE: The patient was placed on the operating room table in supine position. After the induction of general anesthesia, the patient's abdomen was prepped with ChloraPrep and draped in sterile fashion. Time-out was taken and then pneumoperitoneum established above the umbilicus using a Veress needle. Once 15 mm of intra-abdominal pressure was obtained, a 5-mm port was placed at the umbilicus. Additional lateral 5-mm ports and a subxiphoid 12-mm port were placed and laparoscopy carried out, and the previously noted findings were observed. The gallbladder was placed on cephalad and lateral traction, and dissection was begun at the neck of the gallbladder where the peritoneum was opened medially and laterally using blunt and sharp dissection and electrocautery. Dissection continued in the triangle of Calot where the cystic duct was identified coursing from the neck of the gallbladder distally to the common bile duct. It was dissected proximally and distally for length. Similarly, the artery was similarly identified and dissected. A critical view of safety was taken, and then the cystic duct divided proximally and distally using Endo Singh after it was clipped twice proximally and distally with large hemoclips. The artery was similarly clipped and divided. Hemostasis was checked for and noted to be good and then the gallbladder was removed from the liver bed in a retrograde fashion using electrocautery. Prior to removal from the edge of the liver, hemostasis was again verified and then the gallbladder removed from the edge of the liver, placed in an EndoCatch, and brought out through the subxiphoid port. Pneumoperitoneum was reestablished, hemostasis verified again, and then the 5-mm lateral and subxiphoid ports were removed under laparoscopic vision without evidence of bleeding from the port sites. The umbilical port was removed and the pneumoperitoneum evacuated. All port sites were infiltrated with 0.5% Marcaine and the skin edges closed with 4-0 Biosyn in a subcuticular and continuous fashion. Steri-Strips and Band-Aid dressings were placed and the procedure terminated at this point and the patient aroused from general anesthesia and transferred to the post anesthesia care unit in stable condition awake and alert. ESTIMATED BLOOD LOSS: 10 mL. REPLACEMENTS: Crystalloid. DRAINS: None. SPECIMENS: Gallbladder and contents to pathology. I, Poli Bermudez, was physically present in the operating room from the time the patient was placed on the operating room table until she was transferred to the post anesthesia care unit in my accompaniment. MD REGINE Montgomery/[id number] MTDD
== END 2020-04-30 18:17 | disposition home or self-care (01) | DRG 263 ==
LOC: JER 09:25 → JERBED 14:04 → J8W 22:48
PROVIDERS: ADMIT Family Medicine; ATTEND Family Medicine
PROC: 0FT44ZZ Resection of Gallbladder, Percutaneous Endoscopic Approach (ICD-10-PCS; principal; 2020-04-29 08:00)
DX: K80.00 Calculus of gallbladder with acute cholecystitis without obstruction (principal); R10.13 Epigastric pain; R11.2 Nausea with vomiting, unspecified; E66.9 Obesity, unspecified; Z68.36 Body mass index [BMI] 36.0-36.9, adult; F11.10 Opioid abuse, uncomplicated; F12.10 Cannabis abuse, uncomplicated; K80.50 Calculus of bile duct without cholangitis or cholecystitis without obstruction
CPT/HCPCS: 36415; 71045-TC-FY; 80053; 80307; 81003; 83605; 83690; 84703; 85025; 85027; 88304-TC; 93005; 93010; 94760; 99285-25; J0131; U0003

== ENCOUNTER 2020-05-23 15:48 | Inpatient (IN) | payer OTHER ==
[2020-05-23 16:17] VITALS: BMI 37.4
--- OUTSIDE RECORDS SUMMARY | 2020-05-23 16:35 | XMS ---
:1995 [facility] Organization [facility] Support Name Relationship Address Phone UNK Unavailable Unavailable Unavailable TWILA Unavailable Unavailable Unavailable [place] [address] CELIS SISTER [address] [place] [address] [facility] [address] [place] [address] SCHAEFER Unavailable [address] [place] [place] [address] Re-disclosure Warning The records that you are about to access may contain information from federally- assisted alcohol or drug abuse programs. If such information is present, then the following federally mandated warning applies: This information has been disclosed to you from records protected by federal confidentiality rules (42 CFR part 2). The federal rules prohibit you from making any further disclosure of this information unless further disclosure is expressly permitted by the written consent of the person to whom it pertains or as otherwise permitted by 42 CFR part 2. A general authorization for the release of medical or other information is NOT sufficient for this purpose. The Federal rules restrict any use of the information to criminally investigate or prosecute any alcohol or drug abuse patient.The records that you are about to access may contain highly sensitive health information, the redisclosure of which is protected by Article 27-F of the [facility] Public Health law. If you continue you may haveaccess to information: Regarding HIV / AIDS; Provided by facilities licensed or operated by the [facility] Office of Mental Health; or Provided by the [facility] Office for People With Developmental Disabilities. If such information is present, then the following [facility] mandated warning applies: This information has been disclosed to you from confidential records which are protected by state law. State law prohibits you from making any further disclosure of this information without the specific written consent of the person to whom it pertains, or as otherwise permitted by law. Any unauthorized further disclosure in violation of state law may result in a fine or snf sentence or both. A general authorization for the release of medical or other information is NOT sufficient authorization for further disclosure. Encounters Encounter Providers Location Date Indications Data Source(s ) (TEL) [facility] - [place] EDT [facility] [employer] 12[facility] - [place] EDT [facility] [employer] 06/08[facility]2019 [facility] 12:[facility] - [place] EDT [facility] [employer]) Medications Medication Brand Start Product Dose Route Administrative Pharmacy [facility] Indications Reaction Description Data Name Date Form Instructions Instructions Source(s) Fluconazole Difluc active 1 table t eCW2 150 MG Oral an 2019 ([facility]anned Tablet 150MG 12:00: Parenthood [Diflucan] 00 AM - [place] Diflucan EDT [facility] 150MG [employer] ed) Metronidazo Metron active Metroni dazol eCW2 le 0.0075 idazol 2020 e 0.75 % (Dav[facility] nned MG/MG e 0.75 12:00: Parenthood Vaginal Gel % 00 AM - [place] Metronidazo EDT [facility] le 0.75 % Incorporat ed) Fluconazole Difluc 03/20/ 1.0 active Difluca n eCW2 150 MG Oral an 2019 {tabl 150MG (Plann ed Tablet 150MG 12:00: et} Parenthood [Diflucan] 00 AM - [place] Diflucan EDT [facility] 150MG [employer]) Metronidazo Metron active 1 eC W2 le 0.0075 idazol 2020 applicatorfu ([facility]anned MG/MG e 0.75 12:00: l at bedtime Pa renthood Vaginal Gel % 00 AM - [place] Metronidazo EDT [facility] le 0.75 % Incorporat ed) Metronidazo MetroG active 1 eC W2 le 0.0075 el-Vag 2019 application ( Planned MG/MG inal 12:00: at bedtime Parent schrader Vaginal Gel 0.75 % 00 AM - [place] son [MetroGel] EDT [facility] MetroGel-Va Incorpor at ginal 0.75 ed) % MetroGel-Va UNK 06/08/ suspend 1 eCW 2 ginal 0.75 2019 ed application (P lanned % 12:00: at bedtime Parenth ood 00 AM - [place] EDT [facility] [employer] ed) MetroGel-Va UNK 06/08/ 1.0 suspend MetroGel -Vag eCW2 ginal 0.75 2019 {appl ed inal 0.75 % ( Planned % 12:00: icati Parenthood 00 AM on_at - [place] EDT _bedt [facility] travis} Incorporat ed) Insurance Providers Payer name Policy type Policy ID Covered Covered republican's Policy P amelia / Coverage republican ID relationship to Han Inf ormation type han [facility] [id number] SP [id number] MEDICA[facility] [id number] SP [id number] [facility] [id number] SP [id number] 200 HEALTH PLAN Surgeries/Procedures Procedure Description Date Indications Data Source(s) Test 03/20/2020 eCW2 ([facility] 12:00:00 AM EDT [facility] - [facility] [employer] [facility]) SPECIMEN HANDLING 03/20/2020 eCW2 (Plan josue 12:00:00 AM EDT [facility] - [facility] [employer] rated) TRICHOMONAS, MICHAELA 03/20/2020 eCW2 ([facility] ed 12:00:00 AM EDT [facility] - [facility] [employer] rated) CHLAMYDIA, MICHAELA 03/20/2020 eCW2 ([facility] 12:00:00 AM EDT [facility] - [facility] [employer] rated) GONORRHEA, MICHAELA 03/20/2020 eCW2 ([facility] 12:00:00 AM EDT [facility] - [facility] [employer] rated) DETECT AGENT NOS, DNA, 03/20/2020 eCW2 ([facility] AMP 12:00:00 AM EDT [facility] - [facility] [employer] rated) PAP SMEAR: 03/20/2020 eCW2 ([facility]anned LIQUID-BASED (THIN 12:00:00 AM EDT Parent schrader - [place] PREP) [facility] [employer] rated) Wet [place] 03/20/2020 eCW2 ([facility] 12:00:00 AM EDT [facility] - [place] [employer] rated) Wet [place] 06/08/2019 eCW2 ([facility] 12:00:00 AM EDT [facility] - [place] [employer] rated) CHLAMYDIA, MICHAELA 06/08/2019 eCW2 ([facility] 12:00:00 AM EDT [facility] - [facility] [employer] rated) GONORRHEA, MICHAELA 06/08/2019 eCW2 ([facility] 12:00:00 AM EDT [facility] - [place] [employer] rated) Results ID Date Data Source [id number] 04/26/2020 08:15:00 PM EDT [facility] Name Value Range Interpretation Description Data Sup porting Code Source(s) Document(s ) SARS [facility] coronavirus 2 RNA This lab was ordered by [facility] and reported by [facility]. Procedure Vital Signs ID Date Data Source UNK Name Value Range Interpretation Code Description Data Source(s) Diastolic blood 80 mm[Hg] 80 mm[Hg] eCW2 ([facility] - [facility] [employer]) Systolic blood 118 mm[Hg] 118 mm[Hg] eCW2 (Plan josue pressure Parenthood - [facility] [employer]) Body mass index 36.18 kg/m2 36.18 kg/m2 eCW2 (P lanned (BMI) [Ratio] [facility] - [facility] [employer]) Body weight 231 [lb_av] 231 [lb_av] eCW2 (Plann ed Measured [facility] - [facility] [employer]) Body height 67 [in_us] 67 [in_us] eCW2 ([facility] [employer]) Diastolic blood 88 mm[Hg] 88 mm[Hg] eCW2 ([facility] pressure [facility] - [facility] [employer]) Systolic blood 118 mm[Hg] 118 mm[Hg] eCW2 (Plan josue pressure Parenthood - [facility] [employer]) Body mass index 34.30 kg/m2 34.30 kg/m2 eCW2 (P lanned (BMI) [Ratio] [facility] - [facility] [employer]) Body weight 219 [lb_av] 219 [lb_av] eCW2 (Plann ed [facility] - [facility] [employer]) Body height 67 [in_us] 67 [in_us] eCW2 ([facility] [employer]) Patient Treatment Plan of Care Planned Activity Planned Date Details Description Data Source (s) Fluconazole 150 MG Oral 03/20/2020 12:00:00 eCW2 ([facility]anned Tablet [Diflucan] AM EDT [facility] - [facility] [employer] [facility]) Metronidazole 0.0075 03/20/2020 12:00:00 eCW2 ([facility] MG/MG Vaginal Gel AM EDT [facility] - [facility] [employer] [facility]) Metronidazole 0.0075 03/20/2020 12:00:00 eCW2 ([facility] MG/MG Vaginal Gel AM EDT [facility] - [facility] [employer] [facility]) Fluconazole 150 MG Oral 03/20/2020 12:00:00 eCW2 ([facility] Tablet [Diflucan] AM EDT [facility] - [facility] [employer] [facility]) Metronidazole 0.0075 06/08/2019 12:00:00 eCW2 ([facility]anned MG/MG Vaginal Gel AM EDT [facility] - [place] [MetroGel] [employer] [facility])
[2020-05-23] MEDS ORDERED: LACTATED RINGERS SOLUTION 1,000 ML/1,000 ML INFUS.BAG IV STA (16:54)
[2020-05-23] MEDS ORDERED: ACETAMINOPHEN 1000 MG/100 ML VIAL (NON FORMULARY) IVPB ONE (16:54)
[2020-05-23] MEDS ORDERED: ONDANSETRON 4 MG/2 ML VIAL IVPUSH ONE ×2 (16:54→22:58)
[2020-05-23] MEDS ORDERED: FAMOTIDINE 20 MG/50 ML IVPB 20 MG/50 ML MG IVPB ONE ×2 (16:54→17:11)
--- NOTE | 2020-05-23 16:55 | PDOC ---
History of Present Illness - General Chief Complaint: Nausea/Vomiting Stated Complaint: VOMITTING Time Seen by Provider: 05/23/20 16:49 - History of Present Illness Initial Comments: HPI: 05/23/20 16:54 25 yo F PMH recent lap mikhail with Dr. Bermudez on 04/29/2020 for biliary colic, marijuana use (last use before surgery), presenting with RUQ/epigastric abd pain, nausea, vomiting, and chills. Ms. Damon states that she had chills this morning, followed by bilious emesis, and then by RUQ and epigastric abdomina pain. States that it feels identical to prior episodes in the past, including her most recent admission for biliary colic. Notes that she last ate a fatty burger last night. Has been unable to keep any food or fluids down since then. Denies CP, SOB, CARREON, urinary changes. LMP now. ROS: GENERAL/CONSTITUTIONAL: endorses chills. Denies generalized weakness, malaise, loss of appetite HEAD, EYES, EARS, NOSE AND THROAT: denies rhinorrhea, nasal congestion NEUROLOGIC: denies headache, focal weakness, dizziness, mental status changes CARDIOVASCULAR: denies chest pain, syncope, palpitations, lightheadedness RESPIRATORY: denies cough, shortness of breath, dyspnea with exertion GASTROINTESTINAL: endorses abdominal pain, nausea and vomiting. Denies abdominal distension, diarrhea, constipation GENITOURINARY: denies dysuria, frequency, urgency MUSCULOSKELETAL: denies myalgia, arthralgia, joint swelling, back pain, neck pain SKIN: denies rash, itching PE: Gen: writhing in bed, appears acutely uncomfortable Neuro: AAOX4, CN II-XII intact HEENT: atraumatic, normocephalic, dry mucous membranes Neck: trachea midline, supple CV: regular rate, regular rhythm, no murmurs, rubs, or gallops Pulm: CTA b/l, no wheezing Abd: soft, non-distended, epigastric and RUQ tenderness MSK: full ROM, intact pulses Extr: no edema, no deformities Skin: warm, dry MDM: Concern for pancreatitis v postcholecystectomy pain 2/2 fatty food. - CBC, CMP - lipase - serum preg - 1L LR - Zofran - Ofirmev - Pepcid - reassess 05/23/20 18:30 Difficult access, ultrasound guided IV line placed. 05/23/20 19:40 Reassessed, patient still complaining of abdominal pain and nausea. Patient has been rolling around and has not received most of her GI cocktail. Will give 2mg of morphine, reassess. 05/23/20 20:08 CMP and CBC unremarkable. Serum preg negative. Will get CT abd/pelvis with contrast. 05/23/20 20:53 Patient reassessed, starting to feel better. 05/23/20 21:16 States that she just vomited again. Will get CT abd/pelvis w/ contrast. 05/23/20 22:33 CT abd/pelvis: No evidence of pneumoperitoneum, abscess, or bowel obstruction. A small amount of free intraperitoneal fluid is seen within the pelvic cul-de-sac. No obvious adnexal pathology is visualized. There is equivocal visualization of mild concentric wall thickening along the ascending colon and hepatic flexure. Evaluation in this regard is difficult due to underdistention. No pericolonic edema/fluid is noted. The appendix appears unremarkable. No CT evidence of acute diverticulitis. There is no gross small bowel pathology allowing for lack of intraluminal contrast. Gastric evaluation is limited due to underdistention and respiratory motion artifact. No gross noncontrast gastric pathology is visualized. Status post interval cholecystectomy in comparison to CT performed on 07/15/2019. No biliary tract dilatation is noted. The liver, spleen, pancreas, adrenal glands and kidneys demonstrate no discrete allowing for partially obscuring respiratory motion artifact. The aorta appears unremarkable in caliber. No obvious lymphadenopathy is identified. Impression: There is equivocal mild concentric wall thickening along the ascending colon and hepatic flexure. Correlate clinically in regards to possible acute colitis. Status post interval cholecystectomy in comparison to a CT exam of 07/15/2019. A small amount of nonspecific free fluid is seen within the cul-de-sac which could be physiologic in nature. 05/23/20 22:[address] scan with patient. Will give Unasyn, toradol 15mg, admit for acute colitis. Past History - Medical History Allergies/Adverse Reactions: Allergies Allergy/AdvReac Type Severity Reaction Status Date / Time No Known Allergies Allergy Verified 04/26/20 09:41 Home Medications: Ambulatory Orders NK [No Known Home Medication] 04/26/20 Asthma: Yes Cardiac Disorders: Yes (PERICARDITIS.) COPD: No - Reproductive History Is Patient Now?: No - Immunization History Immunization Up to Date: No - Psycho-Social/Smoking History Smoking Status: No Smoking History: Never smoked Have you smoked in the past 12 months: Yes Number of Cigarettes Smoked Daily: 0 - Substance Abuse Hx (Audit-C & DAST Scrn) How often the patient has a drink containing alcohol: Never Score: In Men: 4 or > Positive; In Women: 3 or > Positive: 0 Screen Result (Pos requires Nsg. Audit-10AR): Negative In the last yr the pt used illegal drug/Rx for NonMed reason: No Score: Yes response is considered Positive: 0 Screen Result (Positive result requires Nsg. DAST-10): Negative *Physical Exam - Vital Signs Last Vital Signs Temp Pulse Resp BP Pulse Ox 98.6 F 76 19 129/72 99 05/23/20 16:00 05/23/20 16:00 05/23/20 16:00 05/23/20 16:00 05/23/20 16:00 ED Treatment Course - LABORATORY CBC & Chemistry Diagram: 05/24/20 07:18 05/24/20 07:18 Discharge - Discharge Information Problems reviewed: Yes Clinical Impression/Diagnosis: Colitis Nausea & vomiting Qualifiers: Vomiting type: unspecified Vomiting Intractability: non-intractable Qualified Code(s): R11.2 - Nausea with vomiting, unspecified Abdominal pain Qualifiers: Abdominal location: generalized Qualified Code(s): R10.84 - Generalized abdominal pain Condition: Guarded Disposition: AGAINST MEDICAL ADVICE - Follow up/Referral - Patient Discharge Instructions - Post Discharge Activity
[2020-05-23] MEDS ORDERED: ACETAMINOPHEN INJECTION 100 ML IVPB ONE (17:10)
--- NOTE | 2020-05-23 17:56 | PDOC ---
Documentation entered by Maryuri Hall SCRIBE, acting as scribe for Caden Melvin MD. Caden Melvin MD: This documentation has been prepared by the Isabel holt Xhesika, SCRIBE, under my direction and personally reviewed by me in its entirety. I confirm that the documentation accurately reflects all work, treatment, procedures, and medical decision making performed by me. Attending Attestation - Resident Resident Name: Hailey Cody - ED Attending Attestation I have performed the following: I have examined & evaluated the patient, The case was reviewed & discussed with the resident, I agree w/resident's findings & plan, Exceptions are as noted - HPI HPI: 05/23/20 17:09 The patient is a 25y/o F with a pmh of recent lap mikhail (with Dr. Bermudez on 04/29/2020 for biliary colic), who presents to the ED with RUQ/epigastric abdominal pain associated with nausea, vomiting, and chills. Pt states this morning she endorsed chills, followed by bilious emesis, RUQ and epigastric abdominal pain. Pt states her symptoms are consistent with her previous biliary colic. Pt states she ate a fatty burger yesterday. She has been doing fine since the surgery until this morning. The patient denies chest pain, shortness of breath, headache and dizziness. Denies fever, chills, cough, diarrhea and constipation. Denies dysuria, frequency, urgency and hematuria. Allergies: NKDA PCP:Dr. Ozzy Alejandre - Physicial Exam PE: 05/23/20 17:53 GENERAL: The patient is awake, alert, obese, Nontoxic - but appears to be uncomfortable HEAD: Normocephalic, atraumatic. EYES: extraocular movements intact, sclera anicteric, conjunctiva clear. ENT: Normal voice, Moist mucous membranes. NECK: Normal range of motion, supple LUNGS: Breath sounds equal, clear to auscultation bilaterally. No wheezes, no rhonchi, no rales. HEART: Regular rate and rhythm, normal S1 and S2 without murmur, rub or gallop. ABDOMEN: mild diffuse epigastric/upper abdomen tenderness, no rebound/guarding, no cva tenderness EXTREMITIES: Normal range of motion, no edema. NEUROLOGICAL: No facial assymetry, Normal speech, PSYCH: Normal mood, normal affect. SKIN: Warm, Dry, normal turgor, - Medical Decision Making 05/23/20 17:55 ddx includes possible pancreatitis, obsruction, biliary stone, gastritis will obtain blod work, lipase will give GI coctail, if insufficient will give morphine willl likely need imaging ct vs us 05/23/20 18:55 awaiting lab work and reassessment signed out to evenign team to dispo Discharge - Discharge Information Problems reviewed: Yes Clinical Impression/Diagnosis: Colitis Nausea & vomiting Qualifiers: Vomiting type: unspecified Vomiting Intractability: non-intractable Qualified Code(s): R11.2 - Nausea with vomiting, unspecified Abdominal pain Qualifiers: Abdominal location: generalized Qualified Code(s): R10.84 - Generalized abdominal pain Condition: Guarded Disposition: AGAINST MEDICAL ADVICE - Follow up/Referral - Patient Discharge Instructions - Post Discharge Activity
[2020-05-23] MEDS ORDERED: METOCLOPRAMIDE HCL INJECTION 10 MG/2 ML VIAL IVPB ONE (18:48)
[2020-05-23] MEDS ORDERED: METOCLOPRAMIDE HCL INJECTION 10 MG/2 ML VIAL ONE (18:54)
[2020-05-23 19:31] LABS: BASO % 0.7 % (0-2.0); EOS % 0.2 % (0-4.5); HEMATOCRIT 38.8 % (32.4-45.2); HEMOGLOBIN 12.8 GM/dL (10.7-15.3); LYMPH % 10.5 % (8-40); MCH 27.8 pg (25.7-33.7); MCHC 32.9 g/dl (32.0-36.0); MEAN CELL VOLUME 84.4 fl (80-96); MEAN PLT VOLUME 8.7 fl (7.5-11.1); MONO % 3.5 % (3.8-10.2); NEUT % 85.1 % (42.8-82.8); PLATELET COUNT 399 K/MM3 (134-434); RDW 14.7 % (11.6-15.6); WHITE BLOOD COUNT 6.3 K/mm3 (4.0-10.0)
[2020-05-23] MEDS ORDERED: morphine CARPU-JECT 4 MG/1 ML DISP.SYRIN IVPUSH ONE (19:36)
[2020-05-23] MEDS ORDERED: MORPHINE SULFATE 2 MG/ML VIAL ONE (19:40)
[2020-05-23 19:53] LABS: ALBUMIN 4.1 g/dl (3.4-5.0); BILIRUBIN,TOTAL 0.4 mg/dL (0.2-1); BLOOD UREA NITROGEN 11.2 mg/dL (7-18); CALCIUM 9.4 mg/dL (8.5-10.1); CREATININE 0.8 mg/dL (0.55-1.3); POTASSIUM 4.1 mmol/L (3.5-5.1); TOT PROT 7.7 g/dl (6.4-8.2)
[2020-05-23] MEDS ORDERED: AMPICILLIN NA/SULBACTAM NA 1.5 GM in SODIUM CHLORIDE 100 ML IVPB ONE (22:41)
[2020-05-23] MEDS ORDERED: KETOROLAC TROMETHAMINE 30 MG/1 ML VIAL IVPUSH ONE (22:43)
--- NOTE | 2020-05-23 22:47 | PDOC ---
*Physical Exam - Vital Signs Last Vital Signs Temp Pulse Resp BP Pulse Ox 98.6 F 68 18 137/111 H 100 05/23/20 16:00 05/23/20 19:55 05/23/20 19:55 05/23/20 19:55 05/23/20 19:55 ED Treatment Course - LABORATORY CBC & Chemistry Diagram: 05/23/20 18:47 05/23/20 18:47 - ADDITIONAL ORDERS Additional order review: Laboratory Results 05/23/20 05/23/20 18:47 18:47 Sodium 139 Potassium 4.1 Chloride 107 Carbon Dioxide 21 Anion Gap 11 BUN 11.2 Creatinine 0.8 Est GFR (CKD-EPI)AfAm 120.44 Est GFR (CKD-EPI)NonAf 103.92 Random Glucose 112 H Calcium 9.4 Total Bilirubin 0.4 AST 17 ALT 19 Alkaline Phosphatase 81 Total Protein 7.7 Albumin 4.1 Lipase 53 L Serum , Qual Negative 05/23/20 18:47 RBC 4.60 MCV 84.4 MCHC 32.9 RDW 14.7 MPV 8.7 Neutrophils % 85.1 H D Lymphocytes % 10.5 D Monocytes % 3.5 L Eosinophils % 0.2 Basophils % 0.7 - Medications Given in the ED: ED Medications Discontinued Medications Generic Name Dose Route Start Last Admin Trade Name Freq PRN Reason Stop Dose Admin Acetaminophen 1,000 mg 05/23/20 16:54 05/23/20 17:35 Ofirmev Injection - IVPB 05/23/20 16:55 1,000 mg ONCE ONE Administration Lactated Ringer's 1,000 ml in 1,000 mls @ 1,000 mls/hr 05/23/20 16:54 05/23/20 17:34 Lactated Ringers Solution IV 05/23/20 17:53 1,000 mls/hr ONCE STA Administration Famotidine/Sodium Chloride 20 mg in 50 mls @ 100 mls/hr 05/23/20 16:54 05/23/20 17:35 Pepcid 20 Mg Premixed Ivpb - IVPB 05/23/20 17:23 100 mls/hr ONCE ONE Administration Metoclopramide HCl 10 mg 05/23/20 18:48 05/23/20 19:00 Reglan Injection - IVPB 05/23/20 18:49 10 mg ONCE ONE Administration Morphine Sulfate 2 mg 05/23/20 19:36 05/23/20 19:54 Morphine Injection - IVPUSH 05/23/20 19:37 2 mg ONCE ONE Administration Ondansetron HCl 4 mg 05/23/20 16:54 05/23/20 17:35 Zofran Injection IVPUSH 05/23/20 16:55 4 mg ONCE ONE Administration Medical Decision Making - Medical Decision Making 05/23/20 22:46 Pt signed out to me and she has continued abd pain. She has normal labs and was awaiting CT result. CT abd/pelvis shows colitis. She will be admitted for IV Abx, and GI consult. Discharge - Discharge Information Problems reviewed: Yes Clinical Impression/Diagnosis: Colitis - Follow up/Referral - Patient Discharge Instructions - Post Discharge Activity
--- OUTSIDE RECORDS SUMMARY | 2020-05-23 23:01 | XMS ---
:1995 Author Organization [facility] Support Name Relationship Address Phone UE Unavailable Unavailable Unavailable UE Unavailable Unavailable Unavailable UNK Unavailable Unavailable Unavailable TWILA Unavailable Unavailable Unavailable CHARTWE[place] [address] IRWIN SISTER [address] [place] [address] [facility] [address] [place] [address] SCHAEFER Unavailable [address] [place] [address] Re-disclosure Warning The records that you are [...] is protected by Article 27-F of the [facility] Public Health law. If you continue you may haveaccess to information: Regarding HIV / AIDS; Provided by facilities licensed or operated by the [facility] Office of Mental Health; or Provided by the [facility] Office for People With Developmental Disabilities. If such information is present, then the following [facility] mandated warning applies: This information has been [...] law may result in a fine or assisted sentence or both. A general authorization for the release of medical or other information is NOT sufficient authorization for further disclosure. Encounters Encounter Providers Location Date Indications Data Source(s ) (TEL) [facility] - [place] EDT [facility] [employer] 03/[facility] ( [facility] 12:[facility] - [place] EDT [facility] [employer] 06/08[facility]2019 [facility] ( [facility] 12:[facility]:00 [facility] - [place] EDT [facility] [employer]) Medications Medication Brand Start Product Dose Route Administrative Pharmacy [facility] Indications Reaction Description Data Name Date Form Instructions Instructions Source(s) Fluconazole Difluc active 1 table t eCW2 150 MG Oral an 2019 ([facility]anned Tablet 150MG 12:00: Parenthood [Diflucan] 00 AM - [place] Diflucan EDT [facility] 150MG Incorpor[facility] ed) Metronidazo Metron active Metroni dazol eCW2 le 0.0075 idazol 2020 e 0.75 % (Davon nned MG/MG e 0.75 12:00: Parenthood Vaginal Gel % 00 AM - [place] Metronidazo EDT [facility] le 0.75 % Incorporat ed) Fluconazole Difluc 1.0 active Difluca n eCW2 150 MG Oral an 2019 {tabl 150MG (Plann ed Tablet 150MG 12:00: et} Parenthood [Diflucan] 00 AM - [place] Diflucan EDT [facility] 150MG [employer]) Metronidazo Metron active 1 eC W2 le 0.0075 idazol 2019 applicatorfu (Planned MG/MG e 0.75 12:00: l at bedtime Pa renthood Vaginal Gel % 00 AM - [place] Metronidazo EDT [facility] le 0.75 % Incorporat ed) Metronidazo MetroG 10/25/ active 1 eC W2 le 0.0075 el-Vag 2019 application ( Planned MG/MG inal 12:00: at bedtime Parent schrader Vaginal Gel 0.75 % 00 AM - Hud son [MetroGel] EDT [facility] MetroGel-Va Incorpor at ginal 0.75 ed) % MetroGel-Va UNK 06/08/ suspend 1 eCW 2 ginal 0.75 2019 ed application (P lanned % 12:00: at bedtime Parenth ood 00 AM - [place] EDT [employer]) MetroGel-Va UNK 06/08/ 1.0 suspend MetroGel -Vag eCW2 ginal 0.75 2019 {appl ed inal 0.75 % ( Planned % 12:00: icati Parenthood 00 AM on_at - [place] EDT _bedt [employer] travis} Incorporat ed) Insurance Providers Payer name Policy type Policy ID Covered Covered libertarian's Policy P amelia / Coverage libertarian ID relationship to Han Inf ormation type han [facility] [id number] SP [id number] 500 HEALTH NON CAP MEDICAID [id number] SP [id number] TREJO [id number] SP [id number] 200 HEALTH PLAN Surgeries/Procedures Procedure Description Date Indications Data Source(s) Test 03/20/2020 eCW2 ([facility] 12:00:00 AM EDT [facility] - [facility] [employer]) SPECIMEN HANDLING 03/20/2020 eCW2 (Plan josue 12:00:00 AM EDT [facility] - [facility] [employer] [facility]) TRICHOMONAS, MICHAELA 03/20/2020 eCW2 (Plann ed 12:00:00 AM EDT [facility] - [facility] [employer] [facility]) CHLAMYDIA, MICHAELA 03/20/2020 eCW2 ([facility] 12:00:00 AM EDT [facility] - [facility] [employer] [facility]) GONORRHEA, MICHAELA 03/20/2020 eCW2 ([facility] 12:00:00 AM EDT [facility] - [facility] [employer] [facility]) DETECT AGENT NOS, DNA, 03/20/2020 eCW2 ([facility]anned AMP 12:00:00 AM EDT [facility] - [facility] [employer] [facility]) PAP SMEAR: 03/20/2020 eCW2 (Planned LIQUID-BASED (THIN 12:00:00 AM EDT Parent schrader - [place] PREP) [facility]) Wet [place] 03/20/2020 eCW2 ([facility] 12:00:00 AM EDT [facility] - [facility] [employer] [facility]) Wet [place] 06/08/2019 eCW2 ([facility]anned 12:00:00 AM EDT [facility] - [place] [employer] rated) CHLAMYDIA, MICHAELA 06/08/2019 eCW2 ([facility] 12:00:00 AM EDT [facility] - [facility] [employer] [facility]) GONORRHEA, MICHAELA 06/08/2019 eCW2 ([facility]anned 12:00:00 AM EDT [facility] - [facility] [employer] [facility]) Results ID Date Data Source [id number] 04/26/2020 08:15:00 PM EDT [facility] Name Value Range Interpretation Description Data Sup porting Code Source(s) Document(s ) SARS [facility] coronavirus 2 RNA This lab was ordered by [facility] and reported by [facility]. Procedure Vital Signs ID Date Data Source UNK Name Value Range Interpretation Code Description Data Source(s) Diastolic blood 80 mm[Hg] 80 mm[Hg] eCW2 ([facility] pressure [facility] - [facility] [employer]) Systolic blood 118 mm[Hg] 118 mm[Hg] eCW2 (Plan josue pressure [facility] - [facility] [employer]) Body mass index 36.18 kg/m2 36.18 kg/m2 eCW2 (P lanned (BMI) [Ratio] [facility] - [facility] [employer]) Body weight 231 [lb_av] 231 [lb_av] eCW2 (Plann ed Measured [facility] - [facility] [employer]) Body height 67 [in_us] 67 [in_us] eCW2 ([facility] [employer]) Diastolic blood 88 mm[Hg] 88 mm[Hg] eCW2 ([facility] pressure [facility] - [facility] [employer]) Systolic blood 118 mm[Hg] 118 mm[Hg] eCW2 (Plan josue pressure Parenthood - [facility] [employer]) Body mass index 34.30 kg/m2 34.30 kg/m2 eCW2 (P lanned (BMI) [Ratio] [facility] - [facility] [employer]) Body weight 219 [lb_av] 219 [lb_av] eCW2 (Plann ed Measured [facility] - [facility] [employer]) Body height 67 [in_us] 67 [in_us] eCW2 ([facility] [employer]) Patient Treatment Plan of Care Planned Activity Planned Date Details Description Data Source (s) Fluconazole 150 MG Oral 03/20/2020 12:00:00 eCW2 ([facility]anned Tablet [Diflucan] AM EDT [facility] - [facility] [employer] [facility]) Metronidazole 0.0075 03/20/2020 12:00:00 eCW2 ([facility]anned MG/MG Vaginal Gel AM EDT [facility] - [facility] [employer] [facility]) Metronidazole 0.0075 03/20/2020 12:00:00 eCW2 ([facility]anned MG/MG Vaginal Gel AM EDT [facility] - [facility] [employer] [facility]) Fluconazole 150 MG Oral 03/20/2020 12:00:00 eCW2 ([facility]anned Tablet [Diflucan] AM EDT [facility] - [facility] [employer] [facility]) Metronidazole 0.0075 06/08/2019 12:00:00 eCW2 ([facility]anned MG/MG Vaginal Gel AM EDT [facility] - [place] [MetroGel] [employer])
[2020-05-23] MEDS ORDERED: KETOROLAC TROMETHAMINE 15 MG/ML VIAL ONE (23:28)
[2020-05-23] MEDS ORDERED: LACTATED RINGERS SOLUTION 1,000 ML IV SCH (23:45)
[2020-05-23] MEDS ORDERED: MORPHINE SULFATE 2 MG/ML VIAL IVPUSH PRN (23:57)
[2020-05-24] MEDS ORDERED: ACETAMINOPHEN 1000 MG/100 ML VIAL (NON FORMULARY) IVPB PRN (00:05)
--- NOTE | 2020-05-24 00:37 | HP ---
CHIEF COMPLAINT: diffuse abdominal pain and vomiting PCP: Arlen Alejandre HISTORY OF PRESENT ILLNESS: 25 YO lady h/o pericariditis, polysubstance abuse (EtOH, and Marijuana), recent cholecystectomy returning to ED complaining from colicky abdominal pain associated with nausea and repeated episodes of vomiting that started on tuesday after eating fatty meal. She did well initially after the cholecystectomy (04/29/2020), then yesterday started to have pain, that was initially in RUQ, similar to previous episodes but now more diffuse and in upper abdomen. pt repoted that her last BM was 2 days ago but she's passing flatus. no fever, no chills, no dizziness reported. ER course was notable for: (1) CT A/P report showing There is equivocal mild concentric wall thickening along the ascending colon and hepatic flexure.Correlate clinically in regards to possible acute colitis. (2) recieved IV Abx, toradol, morphine and IV acetaminophen (3) Recent Travel: denies PAST MEDICAL HISTORY: pericariditis, polysubstance abuse (EtOH, and Marijuana) PAST SURGICAL HISTORY: cholecystectomy Social History: Smoking: denies Alcohol: occasional Drugs: Marijuana (last use 2 weeks ago) Allergies No Known Allergies Allergy (Verified 04/26/20 09:41) HOME MEDICATIONS: Home Medications Medication Instructions Recorded NK [No Known Home Medication] 04/26/20 REVIEW OF SYSTEMS CONSTITUTIONAL: Absent: fever, chills, diaphoresis, generalized weakness, malaise, loss of appetite, weight change HEENT: Absent: rhinorrhea, nasal congestion, throat pain, throat swelling, difficulty swallowing, mouth swelling, ear pain, eye pain, visual changes CARDIOVASCULAR: Absent: chest pain, syncope, palpitations, irregular heart rate, lig htheadedness, peripheral edema RESPIRATORY: Absent: cough, shortness of breath, dyspnea with exertion, orthopnea, wheezing, stridor, hemoptysis GASTROINTESTINAL: see HPI GENITOURINARY: Absent: dysuria, frequency, urgency, hesitancy, hematuria, flank pain, genital pain MUSCULOSKELETAL: Absent: myalgia, arthralgia, joint swelling, back pain, neck pain SKIN: Absent: rash, itching, pallor HEMATOLOGIC/IMMUNOLOGIC: Absent: easy bleeding, easy bruising, lymphadenopathy, frequent infections ENDOCRINE: Absent: unexplained weight gain, unexplained weight loss, heat intolerance, cold intolerance NEUROLOGIC: Absent: headache, focal weakness or paresthesias, dizziness, unsteady gait, seizure, mental status changes, bladder or bowel incontinence PSYCHIATRIC: Absent: anxiety, depression, suicidal or homicidal ideation, hallucinations. PHYSICAL EXAMINATION Vital Signs - 24 hr 05/23/20 05/23/20 16:00 19:55 Temperature 98.6 F Pulse Rate 76 Pulse Rate [ 68 Left Radial] Respiratory 19 18 Rate Blood Pressure 129/72 Blood Pressure 137/111 H [Left Arm] O2 Sat by Pulse 99 100 Oximetry (%) GENERAL: Awake, alert, and fully oriented, in no acute distress. HEAD: Normal with no signs of trauma. EYES: Pupils equal, round and reactive to light, extraocular movements intact, sclera anicteric, conjunctiva clear. No lid lag. EARS, NOSE, THROAT: Ears normal, nares patent, oropharynx clear without exudates. Moist mucous membranes. NECK: Normal range of motion, supple without lymphadenopathy, JVD, or masses. LUNGS: Breath sounds equal, clear to auscultation bilaterally. No wheezes, and no crackles. No accessory muscle use. HEART: Regular rate and rhythm, normal S1 and S2 without murmur, rub or gallop. ABDOMEN: Soft, diffuse tenderness, not distended, hypoactive bowel sounds, No hepatomegaly or splenomegaly. MUSCULOSKELETAL: Normal range of motion at all joints. No bony deformities or tenderness. No CVA tenderness. UPPER EXTREMITIES: 2+ pulses, warm, well-perfused. No cyanosis. No clubbing. No peripheral edema. LOWER EXTREMITIES: 2+ pulses, warm, well-perfused. No calf tenderness. No peripheral edema. NEUROLOGICAL: Cranial nerves II-XII intact. Normal speech. Normal gait. PSYCHIATRIC: Cooperative. Good eye contact. Appropriate mood and affect. SKIN: Warm, dry, normal turgor, no rashes or lesions noted, normal capillary refill. Laboratory Results - last 24 hr 05/23/20 05/23/20 05/23/20 18:47 18:47 18:47 WBC 6.3 RBC 4.60 Hgb 12.8 Hct 38.8 MCV 84.4 MCH 27.8 MCHC 32.9 RDW 14.7 Plt Count 399 D MPV 8.7 Absolute Neuts (auto) 5.4 Neutrophils % 85.1 H D Lymphocytes % 10.5 D Monocytes % 3.5 L Eosinophils % 0.2 Basophils % 0.7 Nucleated RBC % 0 Sodium 139 Potassium 4.1 Chloride 107 Carbon Dioxide 21 Anion Gap 11 BUN 11.2 Creatinine 0.8 Est GFR (CKD-EPI)AfAm 120.44 Est GFR (CKD-EPI)NonAf 103.92 Random Glucose 112 H Calcium 9.4 Total Bilirubin 0.4 AST 17 ALT 19 Alkaline Phosphatase 81 Total Protein 7.7 Albumin 4.1 Lipase 53 L Serum , Qual Negative ASSESSMENT/PLAN: 25 YO lady h/o pericariditis, polysubstance abuse (EtOH, and Marijuana), recent cholecystectomy returning to ED complaining from colicky abdominal pain # Acute abdominal pain: etiology: acute colitis vs post cholecystectomy syndrome CT abdomen: showed equivocal mild concentric wall thickening along the ascending colon and hepatic flexure. Correlate clinically in regards to possible acute colitis. Status post interval cholecystectomy symptoms provoked by fatty diet NG tube placement, NPO, bowel rest, IV hydration and pain management may consider MRCP ordered blood culture recieved one dose Unasyn in ED trend electrolytes will order UTox, cannabinoid and EtOH screening surgical consult GI consult H/O pericarditis polysubstance abuse DVT prophylaxis - with SCD Family Medical History Family History: Denies Visit type - Emergency Visit Emergency Visit: Yes ED Registration Date: 05/23/20 Care time: The patient presented to the Emergency Department on the above date and was hospitalized for further evaluation of their emergent condition. - New Patient This patient is new to me today: Yes Date on this admission: 05/24/20 - Critical Care Critical Care patient: No
[2020-05-24 02:06] LABS: EPI CELLS >36 /uL (0-25.1); HYALINE CASTS 6 /uL (0-3.1); PH,URINE >= 9.0 (5.0-8.0); URINE APPEARANCE CLOUDY; URINE BACTERIA 1016 /uL (0-1359); URINE BILIRUBIN NEGATIVE (NEGATIVE); URINE COLOR YELLOW; URINE GLUCOSE (UA) NEGATIVE (NEGATIVE); URINE KETONE TRACE (NEGATIVE); URINE LEUK ESTERASE TRACE (NEGATIVE); URINE NITRITE NEGATIVE (NEGATIVE); URINE PROTEIN 1+ (NEGATIVE); URINE RBC 464 /uL (0-23.9); URINE UROBILINOGEN 0.2 mg/dL (0.2-1.0); URINE WBC 22 /uL (0-25.8)
[2020-05-24 02:14] LABS: COCAINE, UR NEGATIVE ng/ml (CUTOFF=300); PHENCYCLIDINE,URINE NEGATIVE ng/ml (CUTOFF=25); URINE AMPHETAMINES NEGATIVE ng/ml (CUTOFF=500); URINE BARBITURATES NEGATIVE ng/ml (CUTOFF=200); URINE BENZODIAZEPINES NEGATIVE ng/ml (CUTOFF=200)
[2020-05-24 02:28] LABS: METHADONE, UR NEGATIVE ng/ml (CUTOFF=300)
[2020-05-24 02:32] LABS: OPIATES, URI POSITIVE ng/ml (CUTOFF=300)
[2020-05-24 07:42] LABS: BASO % 0.2 % (0-2.0); EOS % 0.2 % (0-4.5); HEMATOCRIT 38.5 % (32.4-45.2); HEMOGLOBIN 12.5 GM/dL (10.7-15.3); MCH 27.1 pg (25.7-33.7); MCHC 32.3 g/dl (32.0-36.0); MEAN CELL VOLUME 83.8 fl (80-96); MEAN PLT VOLUME 8.2 fl (7.5-11.1); MONO % 3.2 % (3.8-10.2); NEUT % 88.4 % (42.8-82.8); PLATELET COUNT 395 K/MM3 (134-434); RDW 14.7 % (11.6-15.6)
[2020-05-24] MEDS ORDERED: ACETAMINOPHEN INJECTION 100 ML IVPB ONE (07:42)
[2020-05-24 07:53] LABS: INR 1.19 (0.83-1.09); PROTHROMBIN TIME (PATIENT) 14.1 SEC (9.7-13.0)
[2020-05-24 08:16] LABS: BILIRUBIN,TOTAL 0.7 mg/dL (0.2-1); CALCIUM 9.1 mg/dL (8.5-10.1); CREATININE 0.9 mg/dL (0.55-1.3); PHOSPHOROUS 3.8 mg/dL (2.5-4.9)
[2020-05-24] MEDS ORDERED: MORPHINE SULFATE 2 MG/ML VIAL ONE (08:35)
[2020-05-24] MEDS ORDERED: PANTOPRAZOLE SODIUM 40 MG VIAL ONE (09:53)
[2020-05-24] MEDS ORDERED: PANTOPRAZOLE SODIUM 40 MG VIAL IVPUSH SCH (10:00)
--- NOTE | 2020-05-24 10:01 | PN ---
"Progress Note, Physician Chief Complaint: Colitis Abdominal pain History of Present Illness: 25 YO FEMALE h/o pericariditis, polysubstance abuse (EtOH, and Marijuana), recent cholecystectomy returning to ED complaining from colicky abdominal pain associated with nausea and repeated episodes of vomiting that started on tuesday after eating fatty meal. She did well initially after the cholecystectomy (04/29/2020), then yesterday started to have pain, that was initially in RUQ, similar to previous episodes but now more diffuse and in upper abdomen. pt repoted that her last BM was 2 days ago but she's passing flatus. no fever, no chills, no dizziness reported. CTAP shows diffuse wall thickening-probable acute colitis Urine tox + for opiates + Marijuana WBC normal Afebrile NPO Search Terms: DILEEP CORONEL, 1995 Search Date: 05/24/2020 10:01:21 AM The Drug Utilization Report below displays all of the controlled substance prescriptions, if any, that your patient has filled in the last twelve months. The information displayed on this report is compiled from pharmacy submissions to the Department, and accurately reflects the information as submitted by the pharmacies. This report was requested by: Francisco De Santiago | Reference #: [id number] There are no results for the search terms that you entered. - Current Medication List Current Medications: Active Medications Acetaminophen (Ofirmev Injection -) 1,000 mg IVPB Q6H PRN PRN Reason: PAIN LEVEL 1-5 Stop: 05/25/20 00:05 Last Admin: 05/24/20 07:49 Dose: 1,000 mg Documented by: Lactated Ringer's (Lactated Ringers Solution) 1,000 mls @ 100 mls/hr IV ASDIR CHRISTINA Last Admin: 05/24/20 01:18 Dose: 100 mls/hr Documented by: Morphine Sulfate (Morphine Sulfate) 2 mg IVPUSH Q4H PRN PRN Reason: PAIN LEVEL 6-10 Last Admin: 05/24/20 08:45 Dose: 2 mg Documented by: Pantoprazole Sodium (Protonix Iv) 40 mg IVPUSH DAILY [facility] - Objective Vital Signs: Vital Signs Temperature 98.5 F 05/24/20 06:39 Pulse Rate 73 05/24/20 06:39 Respiratory Rate 17 05/24/20 06:39 Blood Pressure 138/88 05/24/20 06:39 O2 Sat by Pulse Oximetry (%) 100 05/23/20 19:55 Constitutional: Yes: Well Nourished, No Distress, Calm Cardiovascular: Yes: Regular Rate and Rhythm Respiratory: Yes: Regular, CTA Bilaterally Gastrointestinal: Yes: Soft, Hypoactive Bowel Sounds, Tenderness (diffuse) Genitourinary: Yes: WNL Musculoskeletal: Yes: WNL Extremities: Yes: WNL Edema: No Peripheral Pulses WNL: Yes Neurological: Yes: Alert, Oriented Psychiatric: Yes: Alert, Oriented Labs: CBC, BMP 05/24/20 07:18 05/24/20 07:18 INR, PTT INR 1.19 (0.83-1.09) H 05/24/20 07:18 Problem List - Problems (1) Colitis Assessment/Plan: -CTAP-There is equivocal mild concentric wall thickening along the ascending colon and hepatic flexure. Correlate clinically in regards to possible acute colitis.Status post interval cholecystectomy in comparison to a CT exam of 07/15/2019. -IVF -Clear liquid diet -Surgical consult -GI consult -Acetaminophen IV + Morphine PRN for pain control Problems reviewed: Yes Code(s): K52.9 - NONINFECTIVE GASTROENTERITIS AND COLITIS, UNSPECIFIED (2) Substance abuse Assessment/Plan: -Denies use of any illicit drugs -Urine Toxicology + Problems reviewed: Yes Code(s): F19.10 - OTHER PSYCHOACTIVE SUBSTANCE ABUSE, UNCOMPLICATED (3) Abdominal pain Problems reviewed: Yes Code(s): R10.9 - UNSPECIFIED ABDOMINAL PAIN (4) Hematuria Assessment/Plan: -+3 blood in UA -Check UC Problems reviewed: Yes Code(s): R31.9 - HEMATURIA, UNSPECIFIED Assessment/Plan See problem list"
--- NOTE | 2020-05-24 10:34 | CON.GI ---
Consult Consult Specialty:: coverage for Dr Talbert - History of Present Illness History of Present Illness: 25 YO FEMALE h/o pericariditis, polysubstance abuse (EtOH, and Marijuana), recent cholecystectomy returning to ED complaining from colicky abdominal pain associated with nausea and repeated episodes of vomiting that started on tuesday after eating fatty meal. She did well initially after the cholecystectomy (04/29/2020), then yesterday started to have pain, that was initially in RUQ, similar to previous episodes but now more diffuse and in upper abdomen. pt repoted that her last BM was 2 days ago but she's passing flatus. no fever, no chills, no dizziness reported. CTAP shows diffuse wall thickening-probable acute colitis Urine tox + for opiates + Marijuana WBC normal - Past Medical History Cardio/Vascular: Yes: Other (pericarditis) ...LMP: 05/23/20 ...: No - Alcohol/Substance Use Hx Alcohol Use: No - Smoking History Smoking history: Never smoked Have you smoked in the past 12 months: Yes Aproximately how many cigarettes per day: 0 Home Medications - Allergies Allergies/Adverse Reactions: Allergies Allergy/AdvReac Type Severity Reaction Status Date / Time No Known Allergies Allergy Verified 04/26/20 09:41 - Home Medications Home Medications: Ambulatory Orders NK [No Known Home Medication] 04/26/20 Physical Exam-GI Vital Signs: Vital Signs Temperature 98.5 F 05/24/20 06:39 Pulse Rate 73 05/24/20 06:39 Respiratory Rate 17 05/24/20 06:39 Blood Pressure 138/88 05/24/20 06:39 O2 Sat by Pulse Oximetry (%) 100 05/23/20 19:55 Constitutional: Yes: Well Nourished Eyes: Yes: Conjunctiva Clear, Occular Prosthesis HENT: Yes: Tonsillar Exudate Cardiovascular: Yes: Regular Rate and Rhythm Respiratory: Yes: CTA Bilaterally Gastrointestinal Inspection: No: Distention ...Auscultate: Yes: Normoactive Bowel Sounds. No: No Bowel Sounds ...Palpate: Yes: Soft, Tenderness, Epigastium. No: Firm/Rigid, Guarding, Mass, Pulsatile Mass, Splenomegaly, Tenderness ...Percussion: Yes: Tympanitic Labs: CBC, BMP 05/24/20 07:18 05/24/20 07:18 INR, PTT INR 1.19 (0.83-1.09) H 05/24/20 07:18 CBCD WBC 8.0 K/mm3 (4.0-10.0) 05/24/20 07:18 RBC 4.60 M/mm3 (3.60-5.2) 05/24/20 07:18 Hgb 12.5 GM/dL (10.7-15.3) 05/24/20 07:18 Hct 38.5 % (32.4-45.2) 05/24/20 07:18 MCV 83.8 fl (80-96) 05/24/20 07:18 MCHC 32.3 g/dl (32.0-36.0) 05/24/20 07:18 RDW 14.7 % (11.6-15.6) 05/24/20 07:18 Plt Count 395 K/MM3 (134-434) 05/24/20 07:18 MPV 8.2 fl (7.5-11.1) 05/24/20 07:18 CMP Sodium 140 mmol/L (136-145) 05/24/20 07:18 Potassium 4.0 mmol/L (3.5-5.1) 05/24/20 07:18 Chloride 108 mmol/L (98-107) H 05/24/20 07:18 Carbon Dioxide 23 mmol/L (21-32) 05/24/20 07:18 Anion Gap 9 MMOL/L (8-16) 05/24/20 07:18 BUN 13.0 mg/dL (7-18) 05/24/20 07:18 Creatinine 0.9 mg/dL (0.55-1.3) 05/24/20 07:18 Calcium 9.1 mg/dL (8.5-10.1) 05/24/20 07:18 Total Bilirubin 0.7 mg/dL (0.2-1) 05/24/20 07:18 AST 15 U/L (15-37) 05/24/20 07:18 ALT 18 U/L (13-61) 05/24/20 07:18 Alkaline Phosphatase 79 U/L (45-117) 05/24/20 07:18 Total Protein 8.0 g/dl (6.4-8.2) 05/24/20 07:18 Albumin 4.0 g/dl (3.4-5.0) 05/24/20 07:18 Problem List - Problems (1) Abdominal pain Assessment/Plan: r/o dyspepsia secondary to NSAIDs,cyclic vomiting syndrome fro Marijuana use R> Pantoprazole 40mg bid Zofran 4mg tid advance diet as tolerated EGD as an outpatient Code(s): R10.9 - UNSPECIFIED ABDOMINAL PAIN
--- OUTSIDE RECORDS SUMMARY | 2020-05-24 11:55 | XMS ---
:1995 Author Organization [facility] Support Name Relationship Address Phone UE Unavailable Unavailable Unavailable UE Unavailable Unavailable Unavailable UNK Unavailable Unavailable Unavailable TWILA Unavailable Unavailable Unavailable [place] [address] [place] [facility] [address] [place] [address] [facility] [address] [place] [address] SCHAEFER Unavailable [address] [place] [address] Re-disclosure Warning The records that you are [...] is protected by Article 27-F of the [facility] Public Health law. If you continue you may haveaccess to information: Regarding HIV / AIDS; Provided by facilities licensed or operated by the [facility] Office of Mental Health; or Provided by the [facility] Office for People With Developmental Disabilities. If such information is present, then the following [facility] mandated warning applies: This information has [...] law may result in a fine or longterm sentence or both. A general authorization for the release of medical or other information is NOT sufficient authorization for further disclosure. Encounters Encounter Providers Location Date Indications Data Source(s ) (TEL) [facility] [place] EDT [place] [facility] - [place] ED[place] [facility] 06/08[facility] 12:[facility] - [place] EDT [place] [facility]) Medications Medication Brand Start Product Dose Route Administrative Pharmacy [facility] Indications Reaction Description Data Name Date Form Instructions Instructions Source(s) Fluconazole Difluc active 1 table t eCW2 150 MG Oral an 2019 ([facility]anned Tablet 150MG 12:00: Parenthood [Diflucan] 00 AM - [place] Diflucan EDT [place] 150MG Incorpor[facility] ed) Metronidazo Metron active Metroni dazol eCW2 le 0.0075 idazol 2020 e 0.75 % (Davon nned MG/MG e 0.75 12:00: Parenthood Vaginal Gel % 00 AM - [place] Metronidazo EDT [place] le 0.75 % Incorporat ed) Fluconazole Difluc 1.0 active Difluca n eCW2 150 MG Oral an 2019 {tabl 150MG (Plann ed Tablet 150MG 12:00: et} Parenthood [Diflucan] 00 AM - [place] Diflucan EDT [place] 150MG [employer]) Metronidazo Metron active 1 eC W2 le 0.0075 idazol 2019 applicatorfu (Planned MG/MG e 0.75 12:00: l at bedtime Pa renthood Vaginal Gel % 00 AM - [place] Metronidazo EDT [place] le 0.75 % Incorporat ed) Metronidazo MetroG 10/25/ active 1 eC W2 le 0.0075 el-Vag 2019 application ( [facility] MG/MG inal 12:00: at bedtime Parent schrader Vaginal Gel 0.75 % 00 AM - [place] son [MetroGel] EDT [place] MetroGel-Va Incorpor at ginal 0.75 ed) % MetroGel-Va UNK 06/08/ suspend 1 eCW 2 ginal 0.75 2019 ed application (P lanned % 12:00: at bedtime Parenth ood 00 AM - [place] EDT [place] [employer] ed) MetroGel-Va UNK 06/08/ 1.0 suspend MetroGel -Vag eCW2 ginal 0.75 2019 {appl ed inal 0.75 % ( Planned % 12:00: icati Parenthood 00 AM on_at - [place] EDT _bedt [place] travis} Incorporat ed) Insurance Providers Payer name Policy type Policy ID Covered Covered alliance party's Policy P amelia / Coverage alliance party ID relationship to Han Inf ormation type han [facility] [id number] SP [id number] 500 HEALTH NON CAP MEDICAID [id number] SP [id number] [place] [id number] SP [id number] 200 HEALTH PLAN Surgeries/Procedures Procedure Description Date Indications Data Source(s) Test 03/20/2020 eCW2 ([facility] 12:00:00 AM EDT [facility] [place] [employer] rated) SPECIMEN HANDLING 03/20/2020 eCW2 (Plan josue 12:00:00 AM EDT [facility] - [place] [employer] [facility]) TRICHOMONAS, MICHAELA 03/20/2020 eCW2 ([facility]ann ed 12:00:00 AM EDT [facility] - [place] [employer] rated) CHLAMYDIA, MICHAELA 03/20/2020 eCW2 ([facility] 12:00:00 AM EDT [facility] - [place] [employer] rated) GONORRHEA, MICHAELA 03/20/2020 eCW2 ([facility] 12:00:00 AM EDT [facility] - [place] [facility] rated) DETECT AGENT NOS, DNA, 03/20/2020 eCW2 ([facility]anned AMP 12:00:00 AM EDT [facility] - [place] [employer] rated) PAP SMEAR: 03/20/2020 eCW2 (Planned LIQUID-BASED (THIN 12:00:00 AM EDT Parent schrader - [place] PREP) [place] [employer] rated) Wet [place] 03/20/2020 eCW2 ([facility] 12:00:00 AM EDT [facility] - [place] [facility] rated) Wet [place] 06/08/2019 eCW2 ([facility] 12:00:00 AM EDT [facility] - [place] [employer] rated) CHLAMYDIA, MICHAELA 06/08/2019 eCW2 ([facility] 12:00:00 AM EDT [facility] - [place] [employer] rated) GONORRHEA, MICHAELA 06/08/2019 eCW2 ([facility] 12:00:00 AM EDT [facility] - [place] [employer] rated) Results ID Date Data Source [id number] 04/26/2020 08:15:00 PM EDT [facility] Name Value Range Interpretation Description Data Sup porting Code Source(s) Document(s ) SARS [facility] coronavirus 2 RNA This lab was ordered by [facility] and reported by [facility]. Procedure Vital Signs ID Date Data Source UNK Name Value Range Interpretation Code Description Data Source(s) Diastolic blood 80 mm[Hg] 80 mm[Hg] eCW2 ([facility] n[facility] pressure [facility] - [place] [facility]) Systolic blood 118 mm[Hg] 118 mm[Hg] eCW2 (Plan j[facility] pressure [facility] - [place] [employer] [facility]) Body mass index 36.18 kg/m2 36.18 kg/m2 eCW2 (P lanned (BMI) [Ratio] [facility] - [place] [facility]) Body weight 231 [lb_av] 231 [lb_av] eCW2 (Plann ed Measured [facility] - [place] [facility]) Body height 67 [in_us] 67 [in_us] eCW2 ([facility] [place] [facility]) Diastolic blood 88 mm[Hg] 88 mm[Hg] eCW2 ([facility] n[facility] pressure [facility] - [place] [facility]) Systolic blood 118 mm[Hg] 118 mm[Hg] eCW2 (Plan josue pressure Parenthood - [place] [facility]) Body mass index 34.30 kg/m2 34.30 kg/m2 eCW2 (P lanned (BMI) [Ratio] [facility] - [place] [facility]) Body weight 219 [lb_av] 219 [lb_av] eCW2 (Plann ed [facility] - [place] [facility]) Body height 67 [in_us] 67 [in_us] eCW2 ([facility] [place] [facility]) Patient Treatment Plan of Care Planned Activity Planned Date Details Description Data Source (s) Fluconazole 150 MG Oral 03/20/2020 12:00:00 eCW2 ([facility] Tablet [Diflucan] AM EDT [facility] [place] [employer] [facility]) Metronidazole 0.0075 03/20/2020 12:00:00 eCW2 ([facility]anned MG/MG Vaginal Gel AM EDT [facility] - [place] [employer] rated) Metronidazole 0.0075 03/20/2020 12:00:00 eCW2 ([facility] MG/MG Vaginal Gel AM EDT [facility] - [place] [employer] rated) Fluconazole 150 MG Oral 03/20/2020 12:00:00 eCW2 ([facility]anned Tablet [Diflucan] AM EDT [facility] [place] [employer] [facility]) Metronidazole 0.0075 06/08/2019 12:00:00 eCW2 ([facility]anned MG/MG Vaginal Gel AM EDT [facility] - [place] [MetroGel] [place] [employer] rated)
[2020-05-24 12:34] VITALS: TEMP 98.2
--- NOTE | 2020-05-24 12:43 | CONSULT ---
- Consultation REQUESTING PROVIDER: Mihai OCCUPATIONAL HEALTH MANAGER CONSULT REQUEST: We have been asked to surgically evaluate this patient for abdominal pain. Hospitalist:Devin Shay MD HISTORY OF PRESENT ILLNESS: ALFONZO who is a 25 y/o female s/p uneventful lap imkhail 04/29/2020 after # ER visits for biliary colic who presented w/n/v/upper abdominal pain; w/u w/CT a/p c/w colitis; pain statrted after eating a cheesburger; she has a positive tox screen as in the past though she denies substance abuse. PMHx: pericarditis PSHx: as above. Home Medications Medication Instructions Recorded NK [No Known Home Medication] 04/26/20 Allergies Allergy/AdvReac Type Severity Reaction Status Date / Time No Known Allergies Allergy Verified 04/26/20 09:41 REVIEW OF SYSTEMS: CONSTITUTIONAL: Absent: fever, chills, diaphoresis, generalized weakness, malaise, loss of appetite, weight change CARDIOVASCULAR: Absent: chest pain, syncope, palpitations, irregular heart rate, lightheadedness, peripheral edema RESPIRATORY: Absent: cough, shortness of breath, dyspnea with exertion, wheezing, stridor, hemoptysis GASTROINTESTINAL: Present: abdominal pain, abdominal distension, nausea, vomiting, Absent: diarrhea, constipation, melena, hematochezia GENITOURINARY: Absent: dysuria, frequency, urgency, hesitancy, hematuria, flank pain, genital pain MUSCULOSKELETAL: Absent: myalgia, arthralgia, joint swelling, back pain, neck pain SKIN: Absent: rash, itching, pallor HEMATOLOGIC/IMMUNOLOGIC: Absent: easy bleeding, easy bruising, lymphadenopathy NEUROLOGIC: Absent: headache, focal weakness, paresthesias, dizziness, unsteady gait, seizure, mental status changes, bladder or bowel incontinence PSYCHIATRIC: Absent: anxiety, depression, suicidal or homicidal ideation, hallucinations. PHYSICAL EXAM: GENERAL: Awake, alert, and fully oriented, in no acute distress. HEAD: Normal with no signs of trauma. EYES: PERRL, sclera anicteric, conjunctiva clear. NECK: Normal ROM, supple without lymphadenopathy, JVD, or masses. ABDOMEN: Soft, focal right sided ttp w/o signs of an acute surgical abdomen, not distended, normoactive bowel sounds, no guarding, no rebound, no masses. Healed port sites. No organomegaly. MUSCULOSKELETAL: Normal ROM at all joints. No bony deformities or tenderness. No CVA tenderness. UPPER EXTREMITIES: 2+ pulses, warm, well-perfused. No cyanosis. Cap refill <2 seconds. No peripheral edema. LOWER EXTREMITIES: 2+ pulses, warm, well-perfused. No calf tenderness. No peripheral edema. NEUROLOGICAL: Normal speech, gait not observed. PSYCH: Cooperative. Good eye contact. Appropriate mood and affect. SKIN: Warm, dry, normal turgor, no rashes or lesions noted. Vital Signs Temperature 98.2 F 05/24/20 12:34 Pulse Rate 90 05/24/20 12:34 Respiratory Rate 20 05/24/20 12:34 Blood Pressure 104/80 05/24/20 12:34 O2 Sat by Pulse Oximetry (%) 100 05/24/20 12:34 Lab Results WBC 8.0 K/mm3 (4.0-10.0) 05/24/20 07:18 RBC 4.60 M/mm3 (3.60-5.2) 05/24/20 07:18 Hgb 12.5 GM/dL (10.7-15.3) 05/24/20 07:18 Hct 38.5 % (32.4-45.2) 05/24/20 07:18 MCV 83.8 fl (80-96) 05/24/20 07:18 MCHC 32.3 g/dl (32.0-36.0) 05/24/20 07:18 RDW 14.7 % (11.6-15.6) 05/24/20 07:18 Plt Count 395 K/MM3 (134-434) 05/24/20 07:18 INR 1.19 (0.83-1.09) H 05/24/20 07:18 Sodium 140 mmol/L (136-145) 05/24/20 07:18 Potassium 4.0 mmol/L (3.5-5.1) 05/24/20 07:18 Chloride 108 mmol/L (98-107) H 05/24/20 07:18 Carbon Dioxide 23 mmol/L (21-32) 05/24/20 07:18 Anion Gap 9 MMOL/L (8-16) 05/24/20 07:18 BUN 13.0 mg/dL (7-18) 05/24/20 07:18 Creatinine 0.9 mg/dL (0.55-1.3) 05/24/20 07:18 Random Glucose 109 mg/dL (74-106) H 05/24/20 07:18 Calcium 9.1 mg/dL (8.5-10.1) 05/24/20 07:18 CT a/p reviewed; biliary trcat is normal as are LFT's and bilirubin IMP: abdominal pain; colitis by imaging w/u; no evidence of an acute surgical abdomen. PLAN: As per primary team and recommendations of GI. Poli Bermudez MD FACS
[2020-05-24] MEDS ORDERED: LACTATED RINGERS SOLUTION 1,000 ML IV SCH (12:44)
[2020-05-24 14:49] VITALS: BP 120/70; PULSE 87
== END 2020-05-24 18:17 | disposition left against medical advice (07) | DRG 249 ==
LOC: JER 15:48 → JERBED 22:42 → UNDOADMIN 22:42 → J5S 05-24 11:39 → JERBED 05-24 11:39 → J6S 05-24 14:11
PROVIDERS: ADMIT Student in an Organized Health Care Education/Training Program; ATTEND Family Medicine
DX: K52.9 Noninfective gastroenteritis and colitis, unspecified (principal); R10.11 Right upper quadrant pain; F19.10 Other psychoactive substance abuse, uncomplicated; R31.9 Hematuria, unspecified; R10.13 Epigastric pain; F12.10 Cannabis abuse, uncomplicated; F11.20 Opioid dependence, uncomplicated; Z79.1 Long term (current) use of non-steroidal anti-inflammatories (NSAID)
CPT/HCPCS: 36415; 74177-TC; 80053; 80307; 81003; 83690; 83735; 84100; 84443; 84703; 85025; 85610; 87040; 99285-25; C9803; J0131; Q9967; U0003

== ENCOUNTER 2021-03-10 14:50 | Emergency (ER) | payer OTHER ==
[2021-03-10 15:09] VITALS: BP 114/82; PULSE 86; TEMP 98.1; BMI 36.0
[2021-03-10] MEDS ORDERED: ASPIRIN 81 MG CHEWABLE TABLETS PO ONE (16:33)
[2021-03-10] MEDS ORDERED: ACETAMINOPHEN 500 MG TABLET (FP) PO ONE (16:34)
[2021-03-10] MEDS ORDERED: ASPIRIN 325 MG TABLET PO ONE (16:57)
[2021-03-10] MEDS ORDERED: morphine CARPU-JECT 2 MG/1 ML DISP.SYRIN IVPUSH ONE (17:43)
[2021-03-10] MEDS ORDERED: ASPIRIN 325 MG ENTERIC COATED TABLET (FP) ONE (18:10)
[2021-03-10] MEDS ORDERED: ACETAMINOPHEN 500 MG TABLET (FP) ONE (18:12)
[2021-03-10] MEDS ORDERED: MORPHINE SULFATE 2 MG/ML VIAL ONE (18:27)
[2021-03-10 18:40] LABS: BASO % 0.7 % (0-2.0); HEMATOCRIT 36.3 % (32.4-45.2); HEMOGLOBIN 12.1 GM/dL (10.7-15.3); LYMPH % 21.6 % (8-40); MCH 27.8 pg (25.7-33.7); MCHC 33.3 g/dl (32.0-36.0); MEAN CELL VOLUME 83.5 fl (80-96); MEAN PLT VOLUME 7.9 fl (7.5-11.1); MONO % 8.1 % (3.8-10.2); NEUT % 67.6 % (42.8-82.8); PLATELET COUNT 314 10^3/uL (134-434); RBC 4.35 M/mm3 (3.60-5.2); RDW 13.7 % (11.6-15.6); WHITE BLOOD COUNT 5.3 K/mm3 (4.0-10.0)
[2021-03-10 18:47] LABS: INR 1.11 (0.83-1.09); PROTHROMBIN TIME (PATIENT) 13.4 SEC (9.7-13.0)
[2021-03-10 18:50] LABS: ACTIVATED PTT 29.5 SECONDS (25.2-36.5)
[2021-03-10 18:55] LABS: CHLORIDE 109 mmol/L (98-107); SODIUM 143 mmol/L (136-145)
[2021-03-10 18:58] LABS: ALBUMIN 3.6 g/dl (3.4-5.0); ANION GAP 8 MMOL/L (8-16); BLOOD UREA NITROGEN 13.2 mg/dL (7-18); CO2 26 mmol/L (21-32); GLUCOSE,RANDOM 94 mg/dL (74-106); MAGNESIUM 2.2 mg/dL (1.8-2.4)
[2021-03-10 19:01] LABS: CREATININE 0.8 mg/dL (0.55-1.3); SGOT/AST 14 U/L (15-37); SGPT/ALT 22 U/L (13-61)
[2021-03-10 19:02] LABS: BILIRUBIN,TOTAL 0.3 mg/dL (0.2-1)
[2021-03-10 19:03] LABS: TOT PROT 7.2 g/dl (6.4-8.2)
[2021-03-10 19:04] LABS: ALK PHOS 86 U/L (45-117)
[2021-03-10 19:07] LABS: URINE APPEARANCE CLEAR; URINE BILIRUBIN NEGATIVE (NEGATIVE); URINE COLOR YELLOW; URINE GLUCOSE (UA) NEGATIVE (NEGATIVE); URINE KETONE NEGATIVE (NEGATIVE); URINE LEUK ESTERASE NEGATIVE (NEGATIVE); URINE NITRITE NEGATIVE (NEGATIVE); URINE PROTEIN NEGATIVE (NEGATIVE)
[2021-03-10] MEDS ORDERED: KETOROLAC TROMETHAMINE 30 MG/1 ML VIAL IVPUSH ONE (20:06)
[2021-03-10] MEDS ORDERED: KETOROLAC TROMETHAMINE 30 MG/1 ML VIAL ONE (20:12)
[2021-03-10] MEDS ORDERED: NAPROXEN 500 MG TABLET PO ONE (23:26)
[2021-03-10] MEDS ORDERED: NAPROXEN 500 MG TABLET ONE (23:58)
[2021-03-11] MEDS ORDERED: diphenhydrAMINE HCL 25 MG CAPSULE (FP) PO ONE ×2 (00:06)
== END 2021-03-11 00:35 | disposition home or self-care (01) ==
LOC: JER 14:50
PROC: 3E0333Z Introduction of Anti-inflammatory into Peripheral Vein, Percutaneous Approach (ICD-10-PCS; principal; 2021-03-10)
PROC: 3E033NZ Introduction of Analgesics, Hypnotics, Sedatives into Peripheral Vein, Percutaneous Approach (ICD-10-PCS; 2021-03-10)
DX: R07.89 Other chest pain (principal)
CPT/HCPCS: 36415; 71046-TC-FY; 71275-TC; 80053; 81003; 82550; 83735; 84484; 84703; 85025; 85379; 85610; 85730; 93005; 93010; 99285-25; C9803; Q9967; U0003; U0005

== ENCOUNTER 2021-08-23 16:46 | Observation (INO) | payer OTHER ==
[2021-08-23] MEDS ORDERED: ONDANSETRON 4 MG/2 ML VIAL IVPUSH ONE (17:26)
[2021-08-23] MEDS ORDERED: LACTATED RINGERS SOLUTION 1000 ML INFUS.BAG IV ONE (17:26)
[2021-08-23] MEDS ORDERED: ONDANSETRON 4 MG/2 ML VIAL ONE (18:03)
[2021-08-23 19:00] LABS: BASO % 0.4 % (0-2.0); EOS % 0.1 % (0-4.5); HEMATOCRIT 39.5 % (32.4-45.2); HEMOGLOBIN 13.2 GM/dL (10.7-15.3); LYMPH % 10.6 % (8-40); MCH 28.4 pg (25.7-33.7); MCHC 33.4 g/dl (32.0-36.0); MEAN CELL VOLUME 84.8 fl (80-96); MEAN PLT VOLUME 7.8 fl (7.5-11.1); MONO % 5.3 % (3.8-10.2); NEUT % 83.6 % (42.8-82.8); PLATELET COUNT 326 10^3/uL (134-434); RBC 4.66 M/mm3 (3.60-5.2); RDW 13.7 % (11.6-15.6); WHITE BLOOD COUNT 5.9 K/mm3 (4.0-10.0)
[2021-08-23 19:20] LABS: CHLORIDE 108 mmol/L (98-107); SODIUM 140 mmol/L (136-145)
[2021-08-23 19:22] LABS: CALCIUM 9.1 mg/dL (8.5-10.1)
[2021-08-23 19:23] LABS: ALBUMIN 3.9 g/dl (3.4-5.0); ANION GAP 11 MMOL/L (8-16); BLOOD UREA NITROGEN 12.6 mg/dL (7-18); CO2 21 mmol/L (21-32); GLUCOSE,RANDOM 105 mg/dL (74-106); LIPASE 49 U/L (73-393)
[2021-08-23 19:25] LABS: SGPT/ALT 29 U/L (13-61)
[2021-08-23 19:26] LABS: CREATININE 0.9 mg/dL (0.55-1.3); SGOT/AST 25 U/L (15-37)
[2021-08-23 19:27] LABS: BILIRUBIN,TOTAL 0.5 mg/dL (0.2-1); TOT PROT 7.8 g/dl (6.4-8.2)
[2021-08-23 19:28] LABS: ALK PHOS 84 U/L (45-117)
[2021-08-23] MEDS ORDERED: HALOPERIDOL LACTATE 5 MG/ML IM ONE (21:13)
[2021-08-23] MEDS ORDERED: HALOPERIDOL LACTATE 5 MG/ML ONE (21:20)
[2021-08-23] MEDS ORDERED: morphine SULFATE 4 MG/ML VIAL IVPUSH ONE (22:49)
[2021-08-23] MEDS ORDERED: METOCLOPRAMIDE HCL INJECTION 10 MG/2 ML VIAL IVPUSH ONE (22:50)
[2021-08-23] MEDS ORDERED: METOCLOPRAMIDE HCL INJECTION 10 MG/2 ML VIAL ONE (23:04)
[2021-08-23] MEDS ORDERED: morphine SULFATE 4 MG/ML VIAL ONE (23:04)
[2021-08-24] MEDS ORDERED: POLYETHYLENE GLYCOL (HEALTHYLAX) 3350 17 GM PACKET PO PRN (00:16)
[2021-08-24] MEDS ORDERED: FOLIC ACID INJECTION - 1 MG, THIAMINE HCL 100 MG, MULTIVIT INJECTION ADULT 10 ML in SOD... IVPB ONE (00:21)
[2021-08-24] MEDS ORDERED: LORazepam 1 MG TABLET PO PRN (00:26)
[2021-08-24] MEDS ORDERED: MAG HYDROX/AL HYDROX/SIMETH 30 ML UNIT-DOSE CUP PO PRN (02:57)
[2021-08-24] MEDS ORDERED: PANTOPRAZOLE SODIUM 40 MG VIAL IVPUSH ONE (02:57)
[2021-08-24] MEDS ORDERED: PANTOPRAZOLE SODIUM 40 MG VIAL ONE (03:06)
[2021-08-24] MEDS ORDERED: LORazepam 1 MG TABLET ONE (06:07)
[2021-08-24] MEDS: LORazepam 1 MG TABLET PO SCH ×4 (06:09→22:10)
[2021-08-24 11:34] VITALS: BMI 38.2
[2021-08-24 17:01] LABS: CHLORIDE 108 mmol/L (98-107); SODIUM 140 mmol/L (136-145)
[2021-08-24 17:04] LABS: BASO % 0.3 % (0-2.0); EOS % 0.1 % (0-4.5); HEMATOCRIT 35.9 % (32.4-45.2); HEMOGLOBIN 11.9 GM/dL (10.7-15.3); LYMPH % 17.2 % (8-40); MCH 28.3 pg (25.7-33.7); MCHC 33.2 g/dl (32.0-36.0); MEAN CELL VOLUME 85.1 fl (80-96); MEAN PLT VOLUME 8.1 fl (7.5-11.1); MONO % 6.2 % (3.8-10.2); NEUT % 76.2 % (42.8-82.8); PLATELET COUNT 312 10^3/uL (134-434); RBC 4.21 M/mm3 (3.60-5.2); RDW 13.6 % (11.6-15.6); WHITE BLOOD COUNT 7.2 K/mm3 (4.0-10.0)
[2021-08-24 17:05] LABS: CALCIUM 8.4 mg/dL (8.5-10.1)
[2021-08-24 17:06] LABS: ALBUMIN 3.2 g/dl (3.4-5.0); ANION GAP 11 MMOL/L (8-16); CO2 21 mmol/L (21-32); GLUCOSE,RANDOM 112 mg/dL (74-106); MAGNESIUM 2.1 mg/dL (1.8-2.4)
[2021-08-24 17:09] LABS: CREATININE 1.1 mg/dL (0.55-1.3); SGOT/AST 16 U/L (15-37); SGPT/ALT 21 U/L (13-61)
[2021-08-24 17:11] LABS: ALK PHOS 72 U/L (45-117); BILIRUBIN,TOTAL 0.7 mg/dL (0.2-1); TOT PROT 6.6 g/dl (6.4-8.2)
[2021-08-25] MEDS: LORazepam 1 MG TABLET PO SCH ×4 (05:32→22:31)
[2021-08-25 08:25] LABS: BASO % 1.8 % (0-2.0); EOS % 1.1 % (0-4.5); HEMATOCRIT 37.4 % (32.4-45.2); HEMOGLOBIN 12.6 GM/dL (10.7-15.3); LYMPH % 34.1 % (8-40); MCH 28.5 pg (25.7-33.7); MCHC 33.6 g/dl (32.0-36.0); MEAN CELL VOLUME 84.9 fl (80-96); MEAN PLT VOLUME 7.8 fl (7.5-11.1); MONO % 13.4 % (3.8-10.2); NEUT % 49.6 % (42.8-82.8); PLATELET COUNT 297 10^3/uL (134-434); RBC 4.41 M/mm3 (3.60-5.2); RDW 13.7 % (11.6-15.6); WHITE BLOOD COUNT 3.7 K/mm3 (4.0-10.0)
[2021-08-25 08:50] LABS: CALCIUM 8.5 mg/dL (8.5-10.1)
[2021-08-25 08:51] LABS: MAGNESIUM 2.3 mg/dL (1.8-2.4)
[2021-08-25 08:54] LABS: CREATININE 0.9 mg/dL (0.55-1.3)
[2021-08-25] MEDS ORDERED: PANTOPRAZOLE 20 MG TABLET PO SCH (10:00)
[2021-08-25] MEDS: THIAMINE HCL 100 MG TABLET (FP) PO SCH (10:15)
[2021-08-25] MEDS: MULTIVITAMINS (DAILY MVI) TABLET (FP) PO SCH (10:15)
[2021-08-25] MEDS: FOLIC ACID 1 MG TABLET (FP) PO SCH (10:16)
[2021-08-25] MEDS ORDERED: PT OWN MED DRAWER 7, Y5N ONE ×3 (10:21→21:51)
[2021-08-25] MEDS: PROCHLORPERAZINE INJECTION 10 MG/2 ML VIAL IVPB PRN ×2 (10:37→21:41)
[2021-08-25 14:02] LABS: EOS % 0.2 % (0-4.5); HEMATOCRIT 38.9 % (32.4-45.2); LYMPH % 13.9 % (8-40); MCH 28.2 pg (25.7-33.7); MCHC 33.4 g/dl (32.0-36.0); MEAN CELL VOLUME 84.6 fl (80-96); MEAN PLT VOLUME 7.8 fl (7.5-11.1); MONO % 4.8 % (3.8-10.2); NEUT % 80.1 % (42.8-82.8); PLATELET COUNT 322 10^3/uL (134-434); RDW 13.6 % (11.6-15.6); WHITE BLOOD COUNT 5.1 K/mm3 (4.0-10.0)
[2021-08-25 14:56] LABS: COCAINE, UR NEGATIVE (NEGATIVE); METHADONE, UR NEGATIVE (NEGATIVE); OPIATES, URI POSITIVE (NEGATIVE); PHENCYCLIDINE,URINE NEGATIVE (NEGATIVE); URINE BARBITURATES NEGATIVE (NEGATIVE); URINE BENZODIAZEPINES NEGATIVE (NEGATIVE)
[2021-08-25 15:14] LABS: URINE AMPHETAMINES POSITIVE (NEGATIVE)
[2021-08-25] MEDS: D5-NS + 20 MEQ KCL - 20 MEQ/1,000 ML INFUS.BAG IV SCH (20:18)
[2021-08-25] MEDS: PANTOPRAZOLE SODIUM 40 MG VIAL IVPUSH SCH (21:41)
[2021-08-26] MEDS ORDERED: LORazepam 0.5 MG TABLET PO PRN
[2021-08-26] MEDS: LORazepam 0.5 MG TABLET PO SCH ×2 (05:58→11:17)
[2021-08-26] MEDS: D5-NS + 20 MEQ KCL - 20 MEQ/1,000 ML INFUS.BAG IV SCH (05:59)
[2021-08-26] MEDS: MULTIVITAMINS (DAILY MVI) TABLET (FP) PO SCH (09:27)
[2021-08-26] MEDS: PANTOPRAZOLE SODIUM 40 MG VIAL IVPUSH SCH (09:27)
[2021-08-26] MEDS: THIAMINE HCL 100 MG TABLET (FP) PO SCH (09:27)
[2021-08-26] MEDS: FOLIC ACID 1 MG TABLET (FP) PO SCH (09:29)
[2021-08-26 11:26] VITALS: BP 130/88; PULSE 91; TEMP 98.1
[2021-08-26 12:28] LABS: BASO % 0.7 % (0-2.0); EOS % 0.5 % (0-4.5); HEMATOCRIT 38.3 % (32.4-45.2); HEMOGLOBIN 12.2 GM/dL (10.7-15.3); LYMPH % 24.1 % (8-40); MCH 27.3 pg (25.7-33.7); MCHC 31.9 g/dl (32.0-36.0); MEAN CELL VOLUME 85.4 fl (80-96); MEAN PLT VOLUME 8.3 fl (7.5-11.1); MONO % 11.6 % (3.8-10.2); NEUT % 63.1 % (42.8-82.8); PLATELET COUNT 344 10^3/uL (134-434); RBC 4.49 M/mm3 (3.60-5.2); RDW 13.2 % (11.6-15.6); WHITE BLOOD COUNT 4.8 K/mm3 (4.0-10.0)
[2021-08-26 12:52] LABS: ALBUMIN 3.4 g/dl (3.4-5.0); BLOOD UREA NITROGEN 17.2 mg/dL (7-18); CALCIUM 8.5 mg/dL (8.5-10.1)
[2021-08-26 12:55] LABS: CREATININE 0.9 mg/dL (0.55-1.3)
[2021-08-26 12:57] LABS: BILIRUBIN,TOTAL 0.6 mg/dL (0.2-1); TOT PROT 6.9 g/dl (6.4-8.2)
[2021-08-27] MEDS ORDERED: LORazepam 0.5 MG TABLET PO ONE (05:00)
[2021-08-27 21:10] LABS: GLIADIN ANTIBODY IGA 5 units (0-19); GLIADIN ANTIBODY IGG 21 units (0-19); TRANSGLUTAMINASE IGG < 2 U/mL (0-5)
== END 2021-08-26 12:45 | disposition home or self-care (01) ==
LOC: JER 16:46 → INTOOBSV 08-24 00:07 → JERBED 08-24 00:07 → J8W 08-24 09:19
PROVIDERS: ADMIT Hospitalist; ATTEND Family Medicine
PROC: 3E033GC Introduction of Other Therapeutic Substance into Peripheral Vein, Percutaneous Approach (ICD-10-PCS; principal; 2021-08-24)
PROC: 3E023GC Introduction of Other Therapeutic Substance into Muscle, Percutaneous Approach (ICD-10-PCS; 2021-08-24)
PROC: 3E0337Z Introduction of Electrolytic and Water Balance Substance into Peripheral Vein, Percutaneous Approach (ICD-10-PCS; 2021-08-24)
PROC: 3E033NZ Introduction of Analgesics, Hypnotics, Sedatives into Peripheral Vein, Percutaneous Approach (ICD-10-PCS; 2021-08-24)
DX: R11.2 Nausea with vomiting, unspecified (principal); F19.10 Other psychoactive substance abuse, uncomplicated; I31.9 Disease of pericardium, unspecified; F10.10 Alcohol abuse, uncomplicated; R19.7 Diarrhea, unspecified; R00.1 Bradycardia, unspecified; R94.31 Abnormal electrocardiogram [ECG] [EKG]; Z29.9 Encounter for prophylactic measures, unspecified
CPT/HCPCS: 36415; 71046-TC-FY; 74019-TC-FY; 76856-TC; 80048; 80053; 80307; 82150; 82550; 82553; 82784; 83516; 83690; 83735; 84439; 84443; 84484; 84703; 85025; 85651; 86140; 86431; 93005; 93010; 96365; 96367; 96372; 96375; 96376; 99285-25; C9803; G0378; U0003; U0005

== ENCOUNTER 2021-11-16 16:58 | Emergency (ER) | payer OTHER ==
[2021-11-16 17:26] VITALS: BP 116/75; PULSE 86; TEMP 98.6; BMI 39.1
[2021-11-16] MEDS ORDERED: ACETAMINOPHEN 500 MG TABLET (FP) ONE (17:41)
[2021-11-16] MEDS ORDERED: ACETAMINOPHEN 500 MG TABLET (FP) PO ONE (17:43)
[2021-11-16 18:43] LABS: PH,URINE 6.5 (5.0-8.0); URINE APPEARANCE CLOUDY; URINE BILIRUBIN NEGATIVE (NEGATIVE); URINE COLOR YELLOW; URINE GLUCOSE (UA) NEGATIVE (NEGATIVE); URINE KETONE TRACE (NEGATIVE); URINE LEUK ESTERASE NEGATIVE (NEGATIVE); URINE NITRITE NEGATIVE (NEGATIVE); URINE PROTEIN NEGATIVE (NEGATIVE); URINE UROBILINOGEN 0.2 mg/dL (0.2-1.0)
[2021-11-16 18:45] LABS: HCG,QUALITATIVE URINE Negative
[2021-11-16] MEDS ORDERED: KETOROLAC TROMETHAMINE 30 MG/1 ML VIAL IM ONE (19:06)
[2021-11-16] MEDS ORDERED: KETOROLAC TROMETHAMINE 30 MG/1 ML VIAL ONE (19:19)
[2021-11-19 14:08] LABS: BABESIA MICROTI ANTIBODY IGG <1:10 (Neg:<1:10); BABESIA MICROTI ANTIBODY IGM <1:10 (Neg:<1:10); E.chaff HME IgG Negative (Neg:<1:64)
== END 2021-11-16 19:32 | disposition home or self-care (01) ==
LOC: JER 16:58
PROC: 3E0233Z Introduction of Anti-inflammatory into Muscle, Percutaneous Approach (ICD-10-PCS; principal; 2021-11-16)
DX: M25.552 Pain in left hip (principal)
CPT/HCPCS: 36415; 73502-TC-LT-FY; 81003; 84703; 86618; 86666; 86753; 87086; 96372; 99284-25

== ENCOUNTER 2024-02-21 13:23 | Emergency (ER) | payer OTHER ==
[2024-02-21 13:31] VITALS: BP 115/76; PULSE 79; RESP 20; TEMP 98.3; BMI 36.9
[2024-02-21] MEDS ORDERED: METHOCARBAMOL 500 MG TABLET ONE (15:09)
[2024-02-21] MEDS ORDERED: KETOROLAC TROMETHAMINE 30 MG/1 ML VIAL ONE (15:09)
[2024-02-21] MEDS ORDERED: ACETAMINOPHEN 500 MG TABLET (FP) ONE (15:09)
[2024-02-21] MEDS: ACETAMINOPHEN 500 MG TABLET (FP) PO ONE (15:15)
[2024-02-21] MEDS: METHOCARBAMOL 750 MG TABLET PO ONE (15:15)
[2024-02-21] MEDS: KETOROLAC TROMETHAMINE 30 MG/1 ML VIAL IM ONE (15:15)
[2024-02-21] MEDS ORDERED: IBUPROFEN 400 MG TABLET (FP) PO ONE (17:39)
[2024-02-21] MEDS: IBUPROFEN 400 MG TABLET (FP) PO ONE (17:41)
== END 2024-02-21 17:45 | disposition home or self-care (01) ==
LOC: JERFT 13:23
PROC: 3E0133Z Introduction of Anti-inflammatory into Subcutaneous Tissue, Percutaneous Approach (ICD-10-PCS; principal; 2024-02-21)
DX: S13.4XXA Sprain of ligaments of cervical spine, initial encounter (principal); R51.9 Headache, unspecified; M25.512 Pain in left shoulder; M25.562 Pain in left knee; X50.1XXA Overexertion from prolonged static or awkward postures, initial encounter
CPT/HCPCS: 70450-TC; 72125-TC; 73030-TC-LT-FY; 73562-TC-LT-FY; 84703; 99285-25

== ENCOUNTER 2024-03-28 17:43 | Emergency (ER) | payer OTHER ==
[2024-03-28 17:57] VITALS: TEMP 98.8; BMI 38.4
[2024-03-28] MEDS ORDERED: ONDANSETRON 4 MG/2 ML VIAL ONE (20:44)
[2024-03-28] MEDS ORDERED: FAMOTIDINE 20 MG/50 ML IVPB 20 MG/50 ML MG IVPB ONE (20:44)
[2024-03-28] MEDS: ONDANSETRON 4 MG/2 ML VIAL IVPUSH ONE (20:50)
[2024-03-28] MEDS: FAMOTIDINE 20 MG/50 ML IVPB 20 MG/50 ML MG IVPB ONE (20:50)
[2024-03-28] MEDS ORDERED: HALOPERIDOL LACTATE 5 MG/ML ONE (20:54)
[2024-03-28] MEDS ORDERED: KETOROLAC TROMETHAMINE 30 MG/1 ML VIAL ONE (20:54)
[2024-03-28 21:05] LABS: EPI CELLS >36 /uL (0-25.1); HYALINE CASTS 5 /uL (0-3.1); URINE APPEARANCE CLOUDY; URINE BACTERIA 2613 /uL (0-1359); URINE BILIRUBIN NEGATIVE (NEGATIVE); URINE COLOR DK YELLOW; URINE GLUCOSE (UA) NEGATIVE (NEGATIVE); URINE KETONE 3+ (NEGATIVE); URINE LEUK ESTERASE NEGATIVE (NEGATIVE); URINE NITRITE NEGATIVE (NEGATIVE); URINE PROTEIN 2+ (NEGATIVE); URINE RBC 13 /uL (0-23.9); URINE WBC 39 /uL (0-25.8)
[2024-03-28 21:08] LABS: BASO % 0.2 % (0-2.0); EOS % 0.3 % (0-4.5); HEMATOCRIT 42.5 % (32.4-45.2); HEMOGLOBIN 14.2 GM/dL (10.7-15.3); MCH 28.6 pg (25.7-33.7); MCHC 33.5 g/dl (32.0-36.0); MEAN CELL VOLUME 85.4 fl (80-96); MEAN PLT VOLUME 8.3 fl (7.5-11.1); MONO % 4.6 % (3.8-10.2); NEUT % 86.9 % (42.8-82.8); PLATELET COUNT 412 10^3/uL (134-434); RBC 4.97 M/mm3 (3.60-5.2); WHITE BLOOD COUNT 11.9 K/mm3 (4.0-10.0)
[2024-03-28] MEDS: HALOPERIDOL LACTATE 5 MG/ML IM ONE (21:09)
[2024-03-28] MEDS: SODIUM CHLORIDE 0.9% 500 ML INFUS.BAG IV ONE (21:09)
[2024-03-28] MEDS: KETOROLAC TROMETHAMINE 30 MG/1 ML VIAL IVPUSH ONE (21:09)
[2024-03-28 21:23] LABS: CHLORIDE 106 mmol/L (98-107); SODIUM 136 mmol/L (136-145)
[2024-03-28 21:24] LABS: POTASSIUM 7.2 mmol/L (3.5-5.1)
[2024-03-28 21:25] LABS: CALCIUM 9.6 mg/dL (8.5-10.1)
[2024-03-28 21:26] LABS: ANION GAP 9 mmol/L (4-13); BLOOD UREA NITROGEN 19.6 mg/dL (7-18); CO2 21 mmol/L (21-32); GLUCOSE,RANDOM 125 mg/dL (74-106)
[2024-03-28 21:29] LABS: SGOT/AST 95 U/L (15-37); SGPT/ALT 34 U/L (13-61)
[2024-03-28 21:31] LABS: BILIRUBIN,TOTAL 0.6 mg/dL (0.2-1); TOT PROT 9.1 g/dl (6.4-8.2)
[2024-03-28 21:32] LABS: ALK PHOS 103 U/L (45-117)
[2024-03-28 21:41] LABS: ANISOCYTOSIS 1+; MACROCYTOSIS 0; TEAR DROP CELLS 1+
[2024-03-29] MEDS ORDERED: CEPHALEXIN MONOHYDRATE 500 MG CAPSULE (UD) ONE (00:19)
[2024-03-29] MEDS: CEPHALEXIN MONOHYDRATE 500 MG CAPSULE (UD) PO ONE (00:30)
[2024-03-29 01:14] LABS: POTASSIUM 4.4 mmol/L (3.5-5.1)
[2024-03-29 01:16] LABS: ALBUMIN 3.7 g/dl (3.4-5.0); BLOOD UREA NITROGEN 21.2 mg/dL (7-18); CALCIUM 9.1 mg/dL (8.5-10.1)
[2024-03-29 01:20] LABS: CREATININE 0.9 mg/dL (0.55-1.3)
[2024-03-29 01:21] LABS: BILIRUBIN,TOTAL 0.5 mg/dL (0.2-1); TOT PROT 7.8 g/dl (6.4-8.2)
[2024-03-29 02:00] VITALS: BP 114/71; PULSE 61; RESP 16
== END 2024-03-29 03:07 | disposition home or self-care (01) ==
LOC: JER 17:43
PROC: 3E033GC Introduction of Other Therapeutic Substance into Peripheral Vein, Percutaneous Approach (ICD-10-PCS; principal; 2024-03-28)
PROC: 3E033GC Introduction of Other Therapeutic Substance into Peripheral Vein, Percutaneous Approach (ICD-10-PCS; 2024-03-28)
PROC: 3E0333Z Introduction of Anti-inflammatory into Peripheral Vein, Percutaneous Approach (ICD-10-PCS; 2024-03-28)
PROC: 3E023GC Introduction of Other Therapeutic Substance into Muscle, Percutaneous Approach (ICD-10-PCS; 2024-03-28)
DX: R11.15 Cyclical vomiting syndrome unrelated to migraine (principal); R10.13 Epigastric pain; R19.7 Diarrhea, unspecified
CPT/HCPCS: 36415; 76705-TC; 80053; 81003; 83690; 84703; 85025; 87086; 93005; 93010; 99285-25

== ENCOUNTER 2024-04-06 20:28 | Emergency (ER) | payer OTHER ==
[2024-04-06 20:35] VITALS: BP 122/92; PULSE 88; RESP 22; TEMP 97.8; BMI 36.9
[2024-04-06] MEDS ORDERED: ONDANSETRON 4 MG/2 ML VIAL ONE (21:24)
[2024-04-06] MEDS ORDERED: MAG HYDROX/AL HYDROX/SIMETH 30 ML UNIT-DOSE CUP ONE (21:24)
[2024-04-06] MEDS ORDERED: FAMOTIDINE 20 MG/50 ML IVPB 20 MG/50 ML MG IVPB ONE (21:25)
[2024-04-06] MEDS: FAMOTIDINE 20 MG/50 ML IVPB 20 MG/50 ML MG IVPB ONE (21:43)
[2024-04-06] MEDS: MAG HYDROX/AL HYDROX/SIMETH 30 ML UNIT-DOSE CUP PO ONE (21:43)
[2024-04-06] MEDS: ONDANSETRON 4 MG/2 ML VIAL IVPUSH ONE (21:43)
[2024-04-06 21:49] LABS: BASO % 0.9 % (0-2.0); HEMATOCRIT 41.2 % (32.4-45.2); HEMOGLOBIN 13.4 GM/dL (10.7-15.3); LYMPH % 7.9 % (8-40); MCH 28.3 pg (25.7-33.7); MCHC 32.6 g/dl (32.0-36.0); MEAN CELL VOLUME 86.8 fl (80-96); MEAN PLT VOLUME 7.6 fl (7.5-11.1); MONO % 1.9 % (3.8-10.2); NEUT % 89.3 % (42.8-82.8); PLATELET COUNT 343 10^3/uL (134-434); RBC 4.75 M/mm3 (3.60-5.2)
[2024-04-06] MEDS ORDERED: ACETAMINOPHEN INJECTION 100 ML ONE (21:49)
[2024-04-06] MEDS: ACETAMINOPHEN 1000 MG/100 ML BAG IVPB ONE (21:56)
[2024-04-06] MEDS: LACTATED RINGERS SOLUTION 1000 ML INFUS.BAG IV ONE (21:59)
[2024-04-06 22:11] LABS: POTASSIUM 3.7 mmol/L (3.5-5.1)
[2024-04-06 22:13] LABS: ALBUMIN 3.8 g/dl (3.4-5.0); CALCIUM 9.6 mg/dL (8.5-10.1)
[2024-04-06 22:14] LABS: BLOOD UREA NITROGEN 7.8 mg/dL (7-18)
[2024-04-06 22:16] LABS: CREATININE 0.9 mg/dL (0.55-1.3)
[2024-04-06 22:18] LABS: BILIRUBIN,TOTAL 0.4 mg/dL (0.2-1); TOT PROT 7.9 g/dl (6.4-8.2)
[2024-04-06 22:46] LABS: PH,URINE >= 9.0 (5.0-8.0); URINE APPEARANCE CLEAR; URINE BILIRUBIN NEGATIVE (NEGATIVE); URINE COLOR YELLOW; URINE GLUCOSE (UA) NEGATIVE (NEGATIVE); URINE KETONE NEGATIVE (NEGATIVE); URINE LEUK ESTERASE NEGATIVE (NEGATIVE); URINE NITRITE NEGATIVE (NEGATIVE); URINE PROTEIN TRACE (NEGATIVE); URINE UROBILINOGEN 0.2 mg/dL (0.2-1.0)
[2024-04-06] MEDS ORDERED: TRIMETHOBENZAMIDE HCL 200MG/2ML INJ IM ONE (23:27)
[2024-04-06] MEDS: LORazepam 2 MG/ML SDV VIAL IVPUSH ONE (23:34)
[2024-04-06] MEDS: TRIMETHOBENZAMIDE HCL 200MG/2ML INJ IM ONE (23:35)
[2024-04-07 09:00] LABS: MAGNESIUM 2.1 mg/dL (1.8-2.4)
== END 2024-04-07 03:29 | disposition home or self-care (01) ==
LOC: JER 20:28
PROC: 3E033GC Introduction of Other Therapeutic Substance into Peripheral Vein, Percutaneous Approach (ICD-10-PCS; principal; 2024-04-06)
PROC: 3E033NZ Introduction of Analgesics, Hypnotics, Sedatives into Peripheral Vein, Percutaneous Approach (ICD-10-PCS; 2024-04-06)
PROC: 3E033GC Introduction of Other Therapeutic Substance into Peripheral Vein, Percutaneous Approach (ICD-10-PCS; 2024-04-06)
PROC: 3E033GC Introduction of Other Therapeutic Substance into Peripheral Vein, Percutaneous Approach (ICD-10-PCS; 2024-04-06)
DX: R11.2 Nausea with vomiting, unspecified (principal); R10.84 Generalized abdominal pain
CPT/HCPCS: 36415; 74177-TC; 80053; 81003; 83690; 83735; 84703; 85025; 87086; 87186; 93005; 93010; 99285-25; J0131; Q9967